=== PATIENT | male | born 1940 | race Asian ===

== ENCOUNTER 2019-11-14 10:43 | Outpatient (CLI) | payer MEDICARE ==
[2019-11-14 14:10] LABS: BUN - BLOOD UREA NITROGEN 21 mg/dL (6-20); CALCIUM 9.5 mg/dL (8.5-10.3); CARBON DIOXIDE - CO2 27 mmol/L (21-32); CHLORIDE 104 mmol/L (101-111); CHOL/HDL RATIO 2.1 (<5.0); CHOLESTEROL 95 mg/dL; CREATININE 0.8 mg/dL (0.6-1.2); GLUCOSE 200 mg/dL (70-100); HDL CHOLESTEROL 46 mg/dL; LDL CHOLESTEROL,CALCULATED 37 mg/dL; LDL/HDL RATIO 0.8 (<3.6); SODIUM 138 mmol/L (135-145); VLDL CHOLESTEROL 12 mg/dL
[2019-11-14 14:55] LABS: HB2 TOTAL 14.9 g/dL; HEMOGLOBIN A1C 0.82 g/dL; HEMOGLOBIN A1C % 7.2 % (4.6-6.2)
== END 2019-11-14 23:59 | disposition home or self-care (01) ==
LOC: LAB.WCP 10:43
PROVIDERS: ATTEND Internal Medicine Interventional Cardiology
DX: I25.2 Old myocardial infarction (principal)
CPT/HCPCS: 36415; 80048; 80061; 83036; 83721

== ENCOUNTER 2023-04-11 17:40 | Outpatient (CLI) | payer MEDICARE | END 2023-04-11 17:41 | disposition critical access hospital (66) | LOC: EMS 17:40 | DX: M25.552 Pain in left hip (principal); M79.605 Pain in left leg; W01.0XXA Fall on same level from slipping, tripping and stumbling without subsequent striking against object, initial encounter; Y93.01 Activity, walking, marching and hiking; Y92.008 Other place in unspecified non-institutional (private) residence as the place of occurrence of the external cause | CPT/HCPCS: A0425; A0427 ==

== ENCOUNTER 2023-04-11 17:59 | Inpatient (IN) | payer MEDICARE ==
--- NOTE | 2023-04-11 18:07 | ED Physician Documentation ---
PD HPI LOWER EXT INJURY - Stated complaint Stated Complaint: L HIP FX/GLF - History obtained from History obtained from: Patient - History of Present Illness PD HPI LOW EXT INJURY LOCATION: Left, Hip Type of injury: Fall (tripped and fell, landing to left hip. Did not strike head.) Where injury occurred: Home Timing - onset: Today Timing - details: Abrupt onset, Still present Worsened by: Moving, Palpating Associated symptoms: No: Weakness, Numbness Review of Systems Constitutional: denies: Fever, Chills Nose: denies: Rhinorrhea / runny nose, Congestion Throat: denies: Sore throat Respiratory: denies: Cough Skin: denies: Abrasion (s), Laceration (s) Neurologic: denies: Altered mental status, Headache, Head injury PD PAST MEDICAL HISTORY - Past Medical History Cardiovascular: Hypertension, Coronary artery disease (with stents placed in 2019 and again 2020, without subsequent CHF/angina/chest pain. ) - Present Medications Home Medications: Ambulatory Orders Medication Instructions Recorded Confirmed Clopidogrel [Plavix] 75 mg PO DAILY 04/11/23 04/11/23 Empagliflozin [Jardiance] 25 mg PO DAILY 04/11/23 04/11/23 Losartan [Cozaar] 50 mg PO DAILY 04/11/23 04/11/23 Rosuvastatin Calcium [Crestor] 2.5 mg PO QPM 04/11/23 04/11/23 Sitagliptin Phos/Metformin HCl 1 each PO BID 04/11/23 04/11/23 [Janumet Xr 50-1,000 mg Tablet] carvediloL [Coreg] 3.125 mg PO BID 04/11/23 04/11/23 - Allergies Allergies/Adverse Reactions: Allergies Allergy/AdvReac Type Severity Reaction Status Date / Time No Known Drug Allergies Allergy Verified 04/11/23 18:16 PD ED PE NORMAL - Vitals Vital signs reviewed: Yes - General General: Alert and oriented X 3, Well developed/nourished, Other (pain with left hip movement.) - HEENT HEENT: Atraumatic - Neck Neck: Supple, no meningeal sign, No adenopathy - Cardiac Cardiac: RRR, No murmur - Respiratory Respiratory: Clear bilaterally - Abdomen Abdomen: Soft, Non tender - Derm Derm: Normal color, Warm and dry - Extremities Extremities: No edema, No calf tenderness / cord. No: Normal ROM s pain (left hip with pain on slight movement and with impaction/distraction. ) - Neuro Neuro: Alert and oriented X 3, No motor deficit, No sensory deficit, Normal speech Results - Vitals Vitals: Vital Signs - 24 hr 04/11/23 04/11/23 18:12 19:49 Temperature 36.5 C Heart Rate 83 84 Respiratory 15 18 Rate Blood Pressure 201/99 H 154/99 H O2 Saturation 100 99 Oxygen O2 Source Room air - Labs Labs: Laboratory Tests 04/11/23 04/11/23 04/11/23 18:14 18:14 18:14 WBC 11.2 H RBC 4.66 L Hgb 14.4 Hct 43.8 MCV 94.0 MCH 30.9 MCHC 32.9 RDW 13.6 Plt Count 201 MPV 9.8 Neut # (Auto) 9.1 H Lymph # (Auto) 1.3 L [place] # (Auto) 0.7 Eos # (Auto) 0.1 Baso # (Auto) 0.0 Absolute Nucleated RBC 0.00 Nucleated RBC % 0.0 PT 11.5 INR 1.1 APTT Sodium 139 Potassium 4.0 Chloride 104 Carbon Dioxide 25 Anion Gap 10.0 BUN 24 H Creatinine 1.0 Estimated GFR (MDRD) 71 L Glucose 198 H Calcium 10.1 Magnesium 1.9 Total Bilirubin 0.6 AST 15 ALT 16 Alkaline Phosphatase 77 Total Protein 7.9 Albumin 5.1 Globulin 2.8 Albumin/Globulin Ratio 1.8 Lipase < 10 L 04/11/23 18:14 WBC RBC Hgb Hct MCV MCH MCHC RDW Plt Count MPV Neut # (Auto) Lymph # (Auto) [place] # (Auto) Eos # (Auto) Baso # (Auto) Absolute Nucleated RBC Nucleated RBC % PT INR APTT 27.8 Sodium Potassium Chloride Carbon Dioxide Anion Gap BUN Creatinine Estimated GFR (MDRD) Glucose Calcium Magnesium Total Bilirubin AST ALT Alkaline Phosphatase Total Protein Albumin Globulin Albumin/Globulin Ratio Lipase - Rads (name of study) left hip Relevant Findings:: Prelim report reviewed, EMP independent interpretation of test (intertrochanteric fracture. ) chest xray Relevant Findings:: Prelim report reviewed, EMP independent interpretation of test (no acute findings. ) head CT Relevant Findings:: Prelim report reviewed, EMP independent interpretation of test (due to fall on Plavix - no ICH seen. ) PD Medical Decision Making - ED course Complexity details: reviewed results, considered differential (had accidental fall with left hip pain. xray showing intertrochanteric fracture. ), d/w patient, d/w securities consultant (Dr. Terrazas - who will consult on thepatient. ) Departure - Departure Disposition: 66 [facility] DC/Xfer Clinical Impression: Accidental fall, Fracture, intertrochanteric, left femur Condition: Stable Record reviewed to determine appropriate education?: Yes Discharge Date/Time: 04/11/23 21:39
[2023-04-11] MEDS ORDERED: fentaNYL 100 MCG/2 ML VIAL IVP STA (18:12)
[2023-04-11] MEDS ORDERED: KETOROLAC 15 MG/ML VIAL IVP STA (18:12)
[2023-04-11 18:22] LABS: BASOPHILS % (AUTO) 0.2 %; EOSINOPHILS # (AUTO) 0.1 10^3/uL (0.0-0.7); EOSINOPHILS % (AUTO) 1.1 %; HCT - HEMATOCRIT 43.8 % (42.0-52.0); HGB - HEMOGLOBIN 14.4 g/dL (14.0-18.0); LYMPHOCYTES # (AUTO) 1.3 10^3/uL (1.5-3.5); LYMPHOCYTES % (AUTO) 11.3 %; MEAN CORPUSCULAR HEMOGLOBIN 30.9 pg (27.0-31.0); MEAN CORPUSCULAR HGB CONC 32.9 g/dL (32.0-36.0); MEAN PLATELET VOLUME 9.8 fL (7.4-11.4); MONOCYTES # (AUTO) 0.7 10^3/uL (0.0-1.0); MONOCYTES % (AUTO) 6.1 %; NEUTROPHILS # (AUTO) 9.1 10^3/uL (1.5-6.6); NEUTROPHILS % (AUTO) 80.9 %; PLT - PLATELET COUNT 201 10^3/uL (130-450); RED BLOOD COUNT 4.66 10^6/uL (4.70-6.10); RED CELL DISTRIBUTION WIDTH 13.6 % (12.0-15.0); WHITE BLOOD COUNT 11.2 x10^3/uL (4.8-10.8)
[2023-04-11 18:43] LABS: ALBUMIN 5.1 g/dL (3.2-5.5); ALBUMIN/GLOBULIN RATIO 1.8 (1.0-2.2); ALKALINE PHOSPHATASE 77 IU/L (42-121); ALT ALANINE AMINOTRANSFERASE 16 IU/L (10-60); AST ASPARTATE AMINOTRANSFERASE 15 IU/L (10-42); BILIRUBIN,TOTAL 0.6 mg/dL (0.2-1.0); BUN - BLOOD UREA NITROGEN 24 mg/dL (6-20); CALCIUM 10.1 mg/dL (8.5-10.3); CARBON DIOXIDE - CO2 25 mmol/L (21-32); CHLORIDE 104 mmol/L (101-111); GFR - MDRD 71 (>89); GLUCOSE 198 mg/dL (74-104); MAGNESIUM 1.9 mg/dL (1.7-2.3); SODIUM 139 mmol/L (135-145); TOTAL PROTEIN 7.9 g/dL (6.4-8.9)
[2023-04-11 18:44] LABS: LIPASE < 10 U/L (11-82)
--- NOTE | 2023-04-11 19:14 | XRAY Report ---
PROCEDURE: Hip w/Pelvis 2-3V LT INDICATIONS: fall with left hip pain TECHNIQUE: AP pelvis with lateral view(s) of the left hip(s). COMPARISON: None. FINDINGS: Bones: Left hip intertrochanteric fracture. No dislocations. At least moderate degenerative changes at the hips bilaterally. No suspicious bony lesions. Soft tissues: No suspicious soft tissue calcifications or masses. Arteriovascular calcifications. IMPRESSION: Left hip intertrochanteric fracture. Reviewed by: Renzo Yoon MD on 04/11/2023 7:13 PM PDT Approved by: Renzo Yoon MD on 04/11/2023 7:13 PM PDT Station ID: [id number]
--- NOTE | 2023-04-11 19:18 | XRAY Report ---
PROCEDURE: Chest 1 View X-Ray INDICATIONS: fall TECHNIQUE: One view of the chest was acquired. COMPARISON: None. FINDINGS: Surgical changes and devices: None. Lungs and pleura: No pleural effusions or pneumothorax. Lungs are clear. Mediastinum: Mediastinal contours appear normal. Heart size is normal. Bones and chest wall: No suspicious bony lesions. Overlying soft tissues appear unremarkable. IMPRESSION: No acute cardiopulmonary process. Reviewed by: Renzo Yoon MD on 04/11/2023 7:17 PM PDT Approved by: Renzo Yoon MD on 04/11/2023 7:17 PM PDT Station ID: [id number]
[2023-04-11] MEDS ORDERED: ONDANSETRON 4 MG/2 ML VIAL IVP STA (19:57)
--- NOTE | 2023-04-11 20:19 | HISTORY & PHYSICAL EXAMINATION ---
Chief Complaint - Chief Complaint Chief Complaint: L Hip pain History of Present Illness - Admitted From Admitted From:: ER - History Obtained From Records Reviewed: Yes History obtained from: Patient, Patient's , staff, chart Exam Limitations: Virtual exam - History of Present Illness HPI Comment/Other: H&P was conducted via video remotely, using Access Cart. Patient is in [place]. Physician is in [place]. Pt's Abbi is at bedside. 82 yo M with PMH of HTN, HLD, CAD and DM type 2 presented to the ER with c/o L hip pain s/p GLF. Pt tripped over something and landed on his L hip, then had pain, worse with movement. His leg felt weak. No head injury. Pt has h/o R hip surgery. Pt denies Dizziness/CP/SOB/N/V/abdo pain/F/C. He is independent and ambulates independently. In the ER, BP 201/99, WBC 11/2, Glc 198 CXR: NAD Hip/Pelvis Xray: L Hip Intertrochanteric Fracture ER Physician D/W Orthopedic Surgeon who recommended admit on Hospitalist service and they will consult in AM. Pt was given Fentanyl, Toradol and Zofran in the ER. Meds/Allgy - Home Medications Home Medications: Ambulatory Orders Medication Instructions Recorded Confirmed Clopidogrel [Plavix] 75 mg PO DAILY 04/11/23 04/11/23 Empagliflozin [Jardiance] 25 mg PO DAILY 04/11/23 04/11/23 Losartan [Cozaar] 50 mg PO DAILY 04/11/23 04/11/23 Rosuvastatin Calcium [Crestor] 2.5 mg PO QPM 04/11/23 04/11/23 Sitagliptin Phos/Metformin HCl 1 each PO BID 04/11/23 04/11/23 [Janumet Xr 50-1,000 mg Tablet] carvediloL [Coreg] 3.125 mg PO BID 04/11/23 04/11/23 - Allergies Allergies/Adverse Reactions: Allergies Allergy/AdvReac Type Severity Reaction Status Date / Time No Known Drug Allergies Allergy Verified 04/11/23 18:16 Review of Systems - All Other Systems All Other Systems: reports: Reviewed and negative Exam - Vital Signs Reviewed Vital Signs: Yes Vital Signs: Vital Signs x48h Temp Pulse Resp BP Pulse Ox 04/11/23 19:49 84 18 154/99 H 99 04/11/23 18:12 36.5 C 83 15 201/99 H 100 - Physical Exam General Appearance: positive: No acute distress Eyes Bilateral: positive: EOMI, No scleral icterus Respiratory: positive: Other (Access cart stethoscope not working; per ER Provider: CTA B/L) Cardiovascular: positive: Other (Access cart stethoscope not working; per ER Provider: RRR, no murmurs) Abdomen: positive: Other (per ER Provider: non-distended, NT, Soft) Extremities: positive: Other (per ER Provider: TTP L hip) Neurologic/Psychiatric: positive: Oriented x3, Mood/affect nml Conclusion/Plan - Problem List (1) Fracture, intertrochanteric, left femur Conclusion/Plan: L Hip Intertrochanteric Fracture Fall -Hip/Pelvis Xray: L Hip Intertrochanteric Fracture -ER Physician D/W Orthopedic Surgeon who recommended admit on Hospitalist service and they will consult in AM. -Pt was given Fentanyl, Toradol and Zofran in the ER. -admit to MedSurg -NPO p MN until evaluated by Ortho -IVF -pain meds, anti-emetics PRN -Mgmt per Orthopedic Surgery Leukocytosis -WBC 11.2 -CXR: NAD -U/A ordered -no s/s of infection Preop eval -pt's CAD puts him at Class III/6% risk of Cardiac complications per revised Johnston Cardiac Risk Index -will optimize care for emergent Orthopedic surgery HTN HLD CAD -BP 201/99 -continue home medications: Coreg, Crestor -hold home medications: hold Cozaar and Plavix prior surgery; restart after surgery -Hydralazine PRN DM type 2 Glc 198 -accuchecks, SS Insulin, Hypoglycemic protocol -hold home medications: Janumet XL, Jardiance -check Hgba1c VTE Prophylaxis: SCDs only d/t possible upcoming procedure Code Status: D/W pt; he is Full Code ~Adelina Hall MD Hospitalist - Lab Results Lab results reviewed: Yes Fish Bones: 04/11/23 18:14 04/11/23 18:14
--- NOTE | 2023-04-11 20:31 | ED Physician Documentation ---
ED Addendum - Addendum Addendum: 04/11/23 20:29 The patient was signed out to me at change of shift, pending admission to hospitalist service after tripping and falling and sustaining an intertrochanteric fracture to his left hip. My colleague had already discussed the case with Dr. Terrazas of orthopedics, but given the patient's elderly age and comorbidities, including coronary artery disease on Plavix, hypertension, diabetes, and hyperlipidemia, he did request that the patient be admitted to hospitalist service. I discussed the case with Dr. Hall, who graciously agreed to admit this patient to her service. Patient is agreeable to admission and understands he will be having surgery for his hip fracture. Final impression: 1. Intertrochanteric fracture of left hip Disposition: Admit to the hospital in serious condition.
[2023-04-11] MEDS ORDERED: ONDANSETRON ODT 4 MG TABLET TL PRN (20:39)
[2023-04-11] MEDS ORDERED: SODIUM CHLORIDE FLUSH 0.9% 10 ML SYRINGE IVP PRN (20:39)
[2023-04-11] MEDS ORDERED: MORPHINE 2 MG/ML CARPUJECT IVP PRN (20:39)
[2023-04-11] MEDS ORDERED: ONDANSETRON 4 MG/2 ML VIAL IVP PRN (20:39)
--- NOTE | 2023-04-11 20:40 | CT Report ---
PROCEDURE: HEAD WO INDICATIONS: fall, on Plavix TECHNIQUE: Noncontrast 4.5 mm thick angled axial sections acquired from the foramen magnum to the vertex. For r adiation dose reduction, the following was used: automated exposure control, adjustment of mA and/or kV according to patient size. COMPARISON: None. FINDINGS: Image quality: Excellent. CSF spaces: Basal cisterns are patent. No extra-axial fluid collections. Ventricles are normal in size and shape. Brain: No midline shift. No intracranial masses or hemorrhage. Patel-white matter interface is norm al. Age-appropriate cervical cortical volume loss. Mild patchy hypodensity in periventricular white matter. Skull and face: Slight swelling over the left supraorbital region with punctate radiodense focus in the subcutaneous tissues. No visible fracture. Sinuses: Visualized sinuses and mastoids are clear. IMPRESSION: No CT evidence of acute intracranial trauma. Slight left supraorbital soft tissue swelling and debris without underlying fracture. Reviewed by: Rebecca Fajardo MD on 04/11/2023 8:39 PM PDT Approved by: Rebecca Fajardo MD on 04/11/2023 8:39 PM PDT Station ID: [id number]
[2023-04-11 20:47] LABS: INR 1.1 (0.8-1.2); PT - PROTHROMBIN TIME 11.5 secs (9.9-12.6)
[2023-04-11] MEDS ORDERED: SODIUM CHLORIDE 0.9% 1,000 ML IV SCH (21:00)
[2023-04-11] MEDS ORDERED: INSULIN LISPRO 300 UNIT/3 ML PEN SUBQ SCH (21:00)
[2023-04-11] MEDS ORDERED: hydrALAZINE 10 MG TABLET PO PRN (21:02)
[2023-04-11 22:53] LABS: BILIRUBIN,URINE NEGATIVE (NEGATIVE); GLUCOSE, URINE (UA) >=1000 mg/dL (NEGATIVE); KETONES,URINE (UA) 15 mg/dL (NEGATIVE); LEUKOCYTE ESTERASE, URINE NEGATIVE (NEGATIVE); NITRITE,URINE NEGATIVE (NEGATIVE); OCCULT BLOOD,URINE NEGATIVE (NEGATIVE); PH,URINE 5.5 PH (5.0-7.5); PROTEIN,URINE NEGATIVE (NEGATIVE); UROBILINOGEN,URINE 0.2 (NORMAL) E.U./dL (NORMAL)
[2023-04-11 23:00] LABS: CLARITY,URINE CLEAR (CLEAR)
[2023-04-11] MEDS: oxyCODONE 5 MG TABLET PO PRN (23:09)
[2023-04-11] MEDS: SODIUM CHLORIDE FLUSH 0.9% 10 ML SYRINGE IVP SCH (23:33)
[2023-04-12] MEDS: oxyCODONE 5 MG TABLET PO PRN ×4 (03:48→19:58)
[2023-04-12 06:01] LABS: BASOPHILS % (AUTO) 0.4 %; EOSINOPHILS % (AUTO) 0.3 %; HCT - HEMATOCRIT 36.1 % (42.0-52.0); HGB - HEMOGLOBIN 12.1 g/dL (14.0-18.0); LYMPHOCYTES # (AUTO) 0.9 10^3/uL (1.5-3.5); MEAN CORPUSCULAR HEMOGLOBIN 31.8 pg (27.0-31.0); MEAN CORPUSCULAR HGB CONC 33.5 g/dL (32.0-36.0); MEAN PLATELET VOLUME 10.2 fL (7.4-11.4); MONOCYTES # (AUTO) 0.9 10^3/uL (0.0-1.0); NEUTROPHILS # (AUTO) 5.9 10^3/uL (1.5-6.6); NEUTROPHILS % (AUTO) 75.8 %; PLT - PLATELET COUNT 142 10^3/uL (130-450); RED CELL DISTRIBUTION WIDTH 13.7 % (12.0-15.0); WHITE BLOOD COUNT 7.7 x10^3/uL (4.8-10.8)
[2023-04-12 06:10] LABS: POTASSIUM 4.4 mmol/L (3.5-4.5)
--- NOTE | 2023-04-12 08:01 | PROVIDER PROGRESS NOTE ---
Assessment/Plan - Problem List (1) Fracture, intertrochanteric, left femur Assessment/Plan: Ortho Dr. Terrazas plans procedure today around 3pm Pre-op EKG performed: it is sinus rhythm HR 76, ND 251, prolonged, normal QTc Discussed with anesthesia, patient is low to moderate risk for procedure, but not prohibit him for surgical procedure (2) CAD (coronary artery disease) Assessment/Plan: History of stent placement twice On Plavix, hold Plavix prior surgery Will resume Plavix after surgery EKG for preop baseline (3) Diabetic acidosis, type II Assessment/Plan: POCT blood glucose check per unit protocol Insulin sliding scale Half dose when patient is n.p.o. (4) HTN (hypertension) Assessment/Plan: At admission patient had peak blood pressure of 201/99, likely due to acute str ess and the pain Continue with Coreg Hydralazine as needed, with the goal SBP 140 -/ +20 (5) HLD (hyperlipidemia) Assessment/Plan: Continue with Crestor - Current Meds Current Meds: Current Medications Generic Name Dose Route Start Last Admin Trade Name Freq PRN Reason Stop Dose Admin Sodium Chloride 1,000 mls @ 50 mls/hr 04/11/23 21:00 04/11/23 21:33 Normal Saline 0.9% IV 50 mls/hr .Q20H FREDERIC Administration Insulin Human Lispro 0 unit 04/11/23 21:00 04/11/23 22:33 Insulin Lispro 300 Unit/3 Ml Pen SUBQ Not Given 0800,1200,1600,2100 [facility] Protocol Oxycodone HCl 5 mg 04/11/23 20:39 04/12/23 03:48 Oxycodone 5 Mg Tablet PO 5 mg Q4HR PRN Administration Pain 5 to 7 Sodium Chloride 10 ml 04/12/23 01:00 04/11/23 23:33 Sodium Chloride Flush 0.9% 10 Ml Syringe IVP Not Given 0100,0900,1700 FREDERIC - Lab Result Fish Bone Diagrams: 04/12/23 05:27 04/12/23 05:27 Subjective - Subjective Patient Reports: Pain (Patient reports severe pain of his left leg, feels swollen of the hip area) Objective Vital Signs: Vital Signs - 24 hr 04/11/23 04/11/23 04/11/23 18:12 19:49 21:00 Temperature 36.5 C Heart Rate 83 84 75 Heart Rate [ Brachial] Respiratory 15 18 15 Rate Blood Pressure 201/99 H 154/99 H 153/95 H Blood Pressure [Right Brachial artery] O2 Saturation 100 99 98 04/11/23 04/12/23 23:40 03:53 Temperature 36.3 C L 36.8 C Heart Rate Heart Rate [ 84 85 Brachial] Respiratory 18 16 Rate Blood Pressure Blood Pressure 123/73 118/67 [Right Brachial artery] O2 Saturation 98 98 Oxygen O2 Source Room air I&O (Last 24 Hrs): Intake and Output Totals x24h 04/10/23 04/11/23 04/12/23 23:59 23:59 23:59 Output Total 0 0 Balance 0 0 General: Alert, Oriented x3, Cooperative HEENT: PERRLA, EOMI Neck: Supple, No JVD Neuro: Alert, Non Focal, CN 2-12 Grossly Intact Cardiovascular: Regular rate Respiratory: No respiratory distress Abdomen: Soft, No tenderness Extremities: Other (Left leg hip area mildly swollen no skin color change, good pulses on both lower extremity) Skin: No rashes, No breakdown - Results Results: Laboratory Results WBC 7.7 x10^3/uL (4.8-10.8) 04/12/23 05:27 RBC 3.80 10^6/uL (4.70-6.10) L 04/12/23 05:27 Hgb 12.1 g/dL (14.0-18.0) L 04/12/23 05:27 Hct 36.1 % (42.0-52.0) L 04/12/23 05:27 MCV 95.0 fL (80.0-94.0) H 04/12/23 05:27 MCH 31.8 pg (27.0-31.0) H 04/12/23 05:27 MCHC 33.5 g/dL (32.0-36.0) 04/12/23 05:27 RDW 13.7 % (12.0-15.0) 04/12/23 05:27 Plt Count 142 10^3/uL (130-450) 04/12/23 05:27 MPV 10.2 fL (7.4-11.4) 04/12/23 05:27 Neut # (Auto) 5.9 10^3/uL (1.5-6.6) 04/12/23 05:27 Lymph # (Auto) 0.9 10^3/uL (1.5-3.5) L 04/12/23 05:27 [place] # (Auto) 0.9 10^3/uL (0.0-1.0) 04/12/23 05:27 Eos # (Auto) 0.0 10^3/uL (0.0-0.7) 04/12/23 05:27 Baso # (Auto) 0.0 10^3/uL (0.0-0.1) 04/12/23 05:27 Absolute Nucleated RBC 0.00 x10^3/uL 04/12/23 05:27 Nucleated RBC % 0.0 /100WBC 04/12/23 05:27 PT 11.5 secs (9.9-12.6) 04/11/23 18:14 INR 1.1 (0.8-1.2) 04/11/23 18:14 APTT 27.8 secs (24.9-33.3) 04/11/23 18:14 Sodium 140 mmol/L (135-145) 04/12/23 05:27 Potassium 4.4 mmol/L (3.5-4.5) 04/12/23 05:27 Chloride 108 mmol/L (101-111) 04/12/23 05:27 Carbon Dioxide 23 mmol/L (21-32) 04/12/23 05:27 Anion Gap 9.0 (6-13) 04/12/23 05:27 BUN 28 mg/dL (6-20) H 04/12/23 05:27 Creatinine 1.0 mg/dL (0.6-1.3) 04/12/23 05:27 Estimated GFR (MDRD) 71 (>89) L 04/12/23 05:27 Glucose 181 mg/dL (74-104) H 04/12/23 05:27 POC Whole Bld Glucose 169 mg/dL (70 - 100) H 04/12/23 07:53 Calcium 9.0 mg/dL (8.5-10.3) 04/12/23 05:27 Magnesium 1.9 mg/dL (1.7-2.3) 04/11/23 18:14 Total Bilirubin 0.6 mg/dL (0.2-1.0) 04/11/23 18:14 AST 15 IU/L (10-42) 04/11/23 18:14 ALT 16 IU/L (10-60) 04/11/23 18:14 Alkaline Phosphatase 77 IU/L (42-121) 04/11/23 18:14 Total Protein 7.9 g/dL (6.4-8.9) 04/11/23 18:14 Albumin 5.1 g/dL (3.2-5.5) 04/11/23 18:14 Globulin 2.8 g/dL (2.1-4.2) 04/11/23 18:14 Albumin/Globulin Ratio 1.8 (1.0-2.2) 04/11/23 18:14 Lipase < 10 U/L (11-82) L 04/11/23 18:14 Urine Color YELLOW 04/11/23 22:45 Urine Clarity CLEAR (CLEAR) 04/11/23 22:45 Urine pH 5.5 PH (5.0-7.5) 04/11/23 22:45 Ur Specific [place] 1.020 (1.002-1.030) 04/11/23 22:45 Urine Protein NEGATIVE mg/dL (NEGATIVE) 04/11/23 22:45 Urine Glucose (UA) >=1000 mg/dL (NEGATIVE) H 04/11/23 22:45 Urine Ketones 15 mg/dL (NEGATIVE) H 04/11/23 22:45 Urine Occult Blood NEGATIVE (NEGATIVE) 04/11/23 22:45 Urine Nitrite NEGATIVE (NEGATIVE) 04/11/23 22:45 Urine Bilirubin NEGATIVE (NEGATIVE) 04/11/23 22:45 Urine Urobilinogen 0.2 (NORMAL) E.U./dL (NORMAL) 04/11/23 22:45 Ur Leukocyte Esterase NEGATIVE (NEGATIVE) 04/11/23 22:45 Ur Microscopic Review NOT INDICATED 04/11/23 22:45 Urine Culture Comments NOT INDICATED 04/11/23 22:45 Sepsis Event Note (H) - Evaluation Current Stage of Sepsis: Ruled out ABX Reporting Has patient been on IV antibiotics over the past 48 hours?: No Current Medications - Current Medications Current Medications: Active Medications Acetaminophen (Acetaminophen 325 Mg Tablet) 650 mg PO Q4HR PRN PRN Reason: Pain 1 to 4, or Fever Atorvastatin Calcium (Atorvastatin 10 Mg Tablet) 5 mg PO QPM [facility] Carvedilol (Carvedilol 3.125 Mg Tablet) 3.125 mg PO BID [facility] Last Admin: 04/12/23 08:44 Dose: 3.125 mg Hydralazine HCl (Hydralazine 10 Mg Tablet) 10 mg PO Q6H PRN PRN Reason: Blood Pressure Sodium Chloride (Normal Saline 0.9%) 1,000 mls @ 50 mls/hr IV .Q20H [facility] Last Admin: 04/11/23 21:33 Dose: 50 mls/hr Insulin Human Lispro (Insulin Lispro 300 Unit/3 Ml Pen) 0 unit SUBQ 0800,1200,1600,2100 [facility]; Protocol Last Admin: 04/12/23 11:50 Dose: Not Given Morphine Sulfate (Morphine 2 Mg/Ml Carpuject) 2 mg IVP Q4HR PRN PRN Reason: Pain 8 to 10 Ondansetron HCl (Ondansetron Odt 4 Mg Tablet) 4 mg TL Q6HR PRN PRN Reason: Nausea / Vomiting Ondansetron HCl (Ondansetron 4 Mg/2 Ml Vial) 4 mg IVP Q6HR PRN PRN Reason: Nausea / Vomiting Oxycodone HCl (Oxycodone 5 Mg Tablet) 5 mg PO Q4HR PRN PRN Reason: Pain 5 to 7 Last Admin: 04/12/23 13:37 Dose: 5 mg Sodium Chloride (Sodium Chloride Flush 0.9% 10 Ml Syringe) 10 ml IVP PRN PRN PRN Reason: NEEDED PER PROVIDER ORDERS Sodium Chloride (Sodium Chloride Flush 0.9% 10 Ml Syringe) 10 ml IVP 0100,0900,1700 [facility] Last Admin: 04/12/23 08:45 Dose: Not Given Clopidogrel [Plavix] 75 mg PO DAILY 04/11/23 Empagliflozin [Jardiance] 25 mg PO DAILY 04/11/23 Losartan [Cozaar] 50 mg PO DAILY 04/11/23 Rosuvastatin Calcium [Crestor] 2.5 mg PO QPM 04/11/23 carvediloL [Coreg] 3.125 mg PO BID 04/11/23 Sitagliptin Phos/Metformin HCl [Janumet Xr 50-1,000 mg Tablet] 1 tab PO DAILY 04/12/23
[2023-04-12] MEDS: carvediloL 3.125 MG TABLET PO SCH ×2 (08:44→21:06)
[2023-04-12] MEDS: SODIUM CHLORIDE FLUSH 0.9% 10 ML SYRINGE IVP SCH ×3 (08:45→23:42)
--- NOTE | 2023-04-12 09:36 | PHARMACY PROGRESS NOTE ---
- Best Possible Medication History Admit Date and Time: 04/11/232038 Processed by: Pharmacy Medication History completed: Yes Patient Interview: Completed Secondary Source(s): Pharmacy records, Insurance records As the person ultimately responsible for medication therapy, providers are able to order a medication from an existing home medication list in [facility] via the "Reconcile Routine" prior to Confirmation of that medication by pit crew support worker. Such practice is discouraged except when the physician, in their clinical judgment, deems that a medical need exists for a medication without regard to previous use.
--- NOTE | 2023-04-12 10:05 | ANESTHESIA ---
Pre-Anesthesia VS, & Labs - Diagnosis left hip fracture - Procedure left hip nailing Vital Signs: Temp Pulse Resp BP Pulse Ox O2 Flow Rate 36.5 C 80 18 111/76 98 04/12/23 08:00 04/12/23 08:00 04/12/23 08:00 04/12/23 08:00 04/12/23 08:00 Height: 6 ft 4 in Weight (kg): 82.5 kg Body Mass Index: 22.1 BMI Classification: Normal - NPO >8 hours - Lab Results Current Lab Results: Laboratory Tests 04/12/23 07:53: POC Whole Bld Glucose 169 H 04/12/23 06:08: POC Whole Bld Glucose 165 H 04/12/23 05:27: Sodium 140, Potassium 4.4, Chloride 108, Carbon Dioxide 23, Anion Gap 9.0, BUN 28 H, Creatinine 1.0, Estimated GFR (MDRD) 71 L, Glucose 181 H, Calcium 9.0 04/12/23 05:27: WBC 7.7, RBC 3.80 L, Hgb 12.1 L, Hct 36.1 L, MCV 95.0 H, MCH 31.8 H, MCHC 33.5, RDW 13.7, Plt Count 142, MPV 10.2, Neut # (Auto) 5.9, Lymph # (Auto) 0.9 L, [place] # (Auto) 0.9, Eos # (Auto) 0.0, Baso # (Auto) 0.0, Absolute Nucleated RBC 0.00, Nucleated RBC % 0.0 04/11/23 23:28: POC Whole Bld Glucose 170 H 04/11/23 18:14: APTT 27.8 04/11/23 18:14: PT 11.5, INR 1.1 04/11/23 18:14: Sodium 139, Potassium 4.0, Chloride 104, Carbon Dioxide 25, Anion Gap 10.0, BUN 24 H, Creatinine 1.0, Estimated GFR (MDRD) 71 L, Glucose 198 H, Calcium 10.1, Magnesium 1.9, Total Bilirubin 0.6, AST 15, ALT 16, Alkaline Phosphatase 77, Total Protein 7.9, Albumin 5.1, Globulin 2.8, Albumin/Globulin Ratio 1.8, Lipase < 10 L 04/11/23 18:14: WBC 11.2 H, RBC 4.66 L, Hgb 14.4, Hct 43.8, MCV 94.0, MCH 30.9, MCHC 32.9, RDW 13.6, Plt Count 201, MPV 9.8, Neut # (Auto) 9.1 H, Lymph # (Auto) 1.3 L, [place] # (Auto) 0.7, Eos # (Auto) 0.1, Baso # (Auto) 0.0, Absolute Nucleated RBC 0.00, Nucleated RBC % 0.0 Fish Bones: 04/12/23 05:27 04/12/23 05:27 Home Medications and Allergies Home Medications: Ambulatory Orders Clopidogrel [Plavix] 75 mg PO DAILY 04/11/23 Empagliflozin [Jardiance] 25 mg PO DAILY 04/11/23 Losartan [Cozaar] 50 mg PO DAILY 04/11/23 Rosuvastatin Calcium [Crestor] 2.5 mg PO QPM 04/11/23 carvediloL [Coreg] 3.125 mg PO BID 04/11/23 Sitagliptin Phos/Metformin HCl [Janumet Xr 50-1,000 mg Tablet] 1 tab PO DAILY 04/12/23 Active Medications Acetaminophen (Acetaminophen 325 Mg Tablet) 650 mg PO Q4HR PRN PRN Reason: Pain 1 to 4, or Fever Atorvastatin Calcium (Atorvastatin 10 Mg Tablet) 5 mg PO QPM [facility] Carvedilol (Carvedilol 3.125 Mg Tablet) 3.125 mg PO BID [facility] Last Admin: 04/12/23 08:44 Dose: 3.125 mg Hydralazine HCl (Hydralazine 10 Mg Tablet) 10 mg PO Q6H PRN PRN Reason: Blood Pressure Sodium Chloride (Normal Saline 0.9%) 1,000 mls @ 50 mls/hr IV .Q20H [facility] Last Admin: 04/11/23 21:33 Dose: 50 mls/hr Insulin Human Lispro (Insulin Lispro 300 Unit/3 Ml Pen) 0 unit SUBQ 0800,1200,1600,2100 [facility]; Protocol Morphine Sulfate (Morphine 2 Mg/Ml Carpuject) 2 mg IVP Q4HR PRN PRN Reason: Pain 8 to 10 Ondansetron HCl (Ondansetron Odt 4 Mg Tablet) 4 mg TL Q6HR PRN PRN Reason: Nausea / Vomiting Ondansetron HCl (Ondansetron 4 Mg/2 Ml Vial) 4 mg IVP Q6HR PRN PRN Reason: Nausea / Vomiting Oxycodone HCl (Oxycodone 5 Mg Tablet) 5 mg PO Q4HR PRN PRN Reason: Pain 5 to 7 Last Admin: 04/12/23 08:45 Dose: 5 mg Sodium Chloride (Sodium Chloride Flush 0.9% 10 Ml Syringe) 10 ml IVP PRN PRN PRN Reason: NEEDED PER PROVIDER ORDERS Sodium Chloride (Sodium Chloride Flush 0.9% 10 Ml Syringe) 10 ml IVP 0100,0900,1700 [facility] Last Admin: 04/12/23 08:45 Dose: Not Given Clopidogrel [Plavix] 75 mg PO DAILY 04/11/23 Empagliflozin [Jardiance] 25 mg PO DAILY 04/11/23 Losartan [Cozaar] 50 mg PO DAILY 04/11/23 Rosuvastatin Calcium [Crestor] 2.5 mg PO QPM 04/11/23 carvediloL [Coreg] 3.125 mg PO BID 04/11/23 Sitagliptin Phos/Metformin HCl [Janumet Xr 50-1,000 mg Tablet] 1 tab PO DAILY 04/12/23 Allergies/Adverse Reactions: Allergies Allergy/AdvReac Type Severity Reaction Status Date / Time No Known Drug Allergies Allergy Verified 04/11/23 18:16 Anes History & Medical History - Anesthetic History Anesthesia Complications: reports: No previous complications - Medical History Cardiovascular: reports: Hypertension, Coronary artery disease (with stents placed in 2019 and again 2020, without subsequent CHF/angina/chest pain. ) Pulmonary: reports: None Gastrointestinal: reports: None Urinary: reports: None Neuro: reports: None Musculoskeletal: reports: None Endocrine/Autoimmune: reports: Type 2 diabetes Blood Disorders: reports: None Skin: reports: None Smoking Status: Never smoker Other Past Medical History: hip fracture r side 2020. cardiac stents x 4. rt hip fracture 2 years ago - Surgical History Cardiothoracic: reports: Coronary stent Urologic: reports: Bladder surgery Exam General: Alert, Oriented x3, Cooperative Dental: WNL Mouth Opening: Greater than 4 Fingerbreadths Neck Mobility: Normal Mallampati classification: III Thyromental Distance: 4-6 cm Respiratory: Lungs clear Cardiovascular: Regular rate Plan Anesthesia Type: General Consent for Procedure(s) Verified and Reviewed: Yes Code Status: Attempt Resuscitation ASA classification: 3-Severe systemic disease Is this case an emergency?: Yes
--- NOTE | 2023-04-12 10:43 | HISTORY & PHYSICAL EXAMINATION ---
HPI - History Obtained From History obtained from: Patient Exam limitations: Clinical condition - History of Present Illness HPI Comment/Other: This is an 82-year-old man who took a fall coming up some steps with his dog last night at home. He fell onto his left hip and had immediate pain to his upper thigh. Is very difficult to bear any weight and he slid forward to get help. He was brought to the emergency room for further evaluation. He does aguilera ve a history of bilateral hip pain but mostly on the left side. The pain has fluctuated over the past 10 years to his hips, mainly left side. He is still able to walk up to a mile per day and seems to tolerate the hip pain fairly well. He does have comorbidities including a history of coronary artery stents, Plavix and diabetes. He denies chest pain, shortness of breath, loss of consciousness or dizziness associated with the fall. His primary complaint is pain to the left hip and upper thigh PMH/PSH - Past Medical History Cardiovascular: positive: Hypertension, Coronary artery disease (with stents placed in 2019 and again 2020, without subsequent CHF/angina/chest pain. ) Respiratory: positive: None Neuro: positive: None Endocrine/Autoimmune: positive: Type 2 diabetes GI: positive: None : positive: None HEENT: positive: None Psych: positive: None Musculoskeletal: positive: None Derm: positive: None MRSA Hx?: No Other Past Medical History: hip fracture r side 2020. cardiac stents x 4. rt hip fracture 2 years ago - Past Surgical History Cardiovascular: positive: Coronary stent Social & Family Hx - Social History Does the pt smoke?: No Smoking Status: Never smoker Does the pt drink ETOH?: No Does the pt have substance abuse?: No - POLST Patient has POLST: No Meds/Allgy - Home Medications Home Medications: Ambulatory Orders Medication Instructions Recorded Confirmed Clopidogrel [Plavix] 75 mg PO DAILY 04/11/23 04/11/23 Empagliflozin [Jardiance] 25 mg PO DAILY 04/11/23 04/11/23 Losartan [Cozaar] 50 mg PO DAILY 04/11/23 04/11/23 Rosuvastatin Calcium [Crestor] 2.5 mg PO QPM 04/11/23 04/11/23 carvediloL [Coreg] 3.125 mg PO BID 04/11/23 04/11/23 Sitagliptin Phos/Metformin HCl 1 tab PO DAILY 04/12/23 04/12/23 [Janumet Xr 50-1,000 mg Tablet] - Allergies Allergies/Adverse Reactions: Allergies Allergy/AdvReac Type Severity Reaction Status Date / Time No Known Drug Allergies Allergy Verified 04/11/23 18:16 Exam - Vital Signs Vital Signs: Vital Signs x48h Temp Pulse Resp BP Pulse Ox 04/12/23 08:00 36.5 C 80 18 111/76 98 04/12/23 03:53 36.8 C 85 16 118/67 98 - Physical Exam General Appearance: positive: Mild distress Respiratory: positive: Chest non-tender, No respiratory distress Cardiovascular: positive: Regular rate & rhythm Peripheral Pulses: positive: 1+ Skin: positive: Color nml, Warm, Dry Neurologic/Psychiatric: positive: Oriented x3, Motor nml, Sensation nml, Mood/affect nml Comments/Other: The left leg has mild external rotation deformity, marked pain with any attempted movement of left hip, skin intact, neurovascular intact Results - Lab Results Fish Bones: 04/12/23 05:27 04/12/23 05:27 Other Lab Results: Lab Results x24hrs 04/12/23 04/12/23 04/12/23 Range/Units 07:53 06:08 05:27 WBC (4.8-10.8) x10^3/uL RBC (4.70-6.10) 10^6/uL Hgb (14.0-18.0) g/dL Hct (42.0-52.0) % MCV (80.0-94.0) fL MCH (27.0-31.0) pg MCHC (32.0-36.0) g/dL RDW (12.0-15.0) % Plt Count (130-450) 10^3/uL MPV (7.4-11.4) fL Neut # (Auto) (1.5-6.6) 10^3/uL Lymph # (Auto) (1.5-3.5) 10^3/uL [place] # (Auto) (0.0-1.0) 10^3/uL Eos # (Auto) (0.0-0.7) 10^3/uL Baso # (Auto) (0.0-0.1) 10^3/uL Absolute Nucleated RBC x10^3/uL Nucleated RBC % /100WBC PT (9.9-12.6) secs INR (0.8-1.2) APTT (24.9-33.3) secs Sodium 140 (135-145) mmol/L Potassium 4.4 (3.5-4.5) mmol/L Chloride 108 (101-111) mmol/L Carbon Dioxide 23 (21-32) mmol/L Anion Gap 9.0 (6-13) BUN 28 H (6-20) mg/dL Creatinine 1.0 (0.6-1.3) mg/dL Estimated GFR (MDRD) 71 L (>89) Glucose 181 H (74-104) mg/dL POC Whole Bld Glucose 169 H 165 H (70 - 100) mg/dL Calcium 9.0 (8.5-10.3) mg/dL Magnesium (1.7-2.3) mg/dL Total Bilirubin (0.2-1.0) mg/dL AST (10-42) IU/L ALT (10-60) IU/L Alkaline Phosphatase (42-121) IU/L Total Protein (6.4-8.9) g/dL Albumin (3.2-5.5) g/dL Globulin (2.1-4.2) g/dL Albumin/Globulin Ratio (1.0-2.2) Lipase (11-82) U/L Urine Color Urine Clarity (CLEAR) Urine pH (5.0-7.5) PH Ur Specific [place] (1.002-1.030) Urine Protein (NEGATIVE) mg/dL Urine Glucose (UA) (NEGATIVE) mg/dL Urine Ketones (NEGATIVE) mg/dL Urine Occult Blood (NEGATIVE) Urine Nitrite (NEGATIVE) Urine Bilirubin (NEGATIVE) Urine Urobilinogen (NORMAL) E.U./dL Ur Leukocyte Esterase (NEGATIVE) Ur Microscopic Review Urine Culture Comments 04/12/23 04/11/23 04/11/23 Range/Units 05:27 23:28 22:45 WBC 7.7 (4.8-10.8) x10^3/uL RBC 3.80 L (4.70-6.10) 10^6/uL Hgb 12.1 L (14.0-18.0) g/dL Hct 36.1 L (42.0-52.0) % MCV 95.0 H (80.0-94.0) fL MCH 31.8 H (27.0-31.0) pg MCHC 33.5 (32.0-36.0) g/dL RDW 13.7 (12.0-15.0) % Plt Count 142 (130-450) 10^3/uL MPV 10.2 (7.4-11.4) fL Neut # (Auto) 5.9 (1.5-6.6) 10^3/uL Lymph # (Auto) 0.9 L (1.5-3.5) 10^3/uL [place] # (Auto) 0.9 (0.0-1.0) 10^3/uL Eos # (Auto) 0.0 (0.0-0.7) 10^3/uL Baso # (Auto) 0.0 (0.0-0.1) 10^3/uL Absolute Nucleated RBC 0.00 x10^3/uL Nucleated RBC % 0.0 /100WBC PT (9.9-12.6) secs INR (0.8-1.2) APTT (24.9-33.3) secs Sodium (135-145) mmol/L Potassium (3.5-4.5) mmol/L Chloride (101-111) mmol/L Carbon Dioxide (21-32) mmol/L Anion Gap (6-13) BUN (6-20) mg/dL Creatinine (0.6-1.3) mg/dL Estimated GFR (MDRD) (>89) Glucose (74-104) mg/dL POC Whole Bld Glucose 170 H (70 - 100) mg/dL Calcium (8.5-10.3) mg/dL Magnesium (1.7-2.3) mg/dL Total Bilirubin (0.2-1.0) mg/dL AST (10-42) IU/L ALT (10-60) IU/L Alkaline Phosphatase (42-121) IU/L Total Protein (6.4-8.9) g/dL Albumin (3.2-5.5) g/dL Globulin (2.1-4.2) g/dL Albumin/Globulin Ratio (1.0-2.2) Lipase (11-82) U/L Urine Color YELLOW Urine Clarity CLEAR (CLEAR) Urine pH 5.5 (5.0-7.5) PH Ur Specific [place] 1.020 (1.002-1.030) Urine Protein NEGATIVE (NEGATIVE) mg/dL Urine Glucose (UA) >=1000 H (NEGATIVE) mg/dL Urine Ketones 15 H (NEGATIVE) mg/dL Urine Occult Blood NEGATIVE (NEGATIVE) Urine Nitrite NEGATIVE (NEGATIVE) Urine Bilirubin NEGATIVE (NEGATIVE) Urine Urobilinogen 0.2 (NORMAL) (NORMAL) E.U./dL Ur Leukocyte Esterase NEGATIVE (NEGATIVE) Ur Microscopic Review NOT INDICATED Urine Culture Comments NOT INDICATED 04/11/23 04/11/23 04/11/23 Range/Units 18:14 18:14 18:14 WBC (4.8-10.8) x10^3/uL RBC (4.70-6.10) 10^6/uL Hgb (14.0-18.0) g/dL Hct (42.0-52.0) % MCV (80.0-94.0) fL MCH (27.0-31.0) pg MCHC (32.0-36.0) g/dL RDW (12.0-15.0) % Plt Count (130-450) 10^3/uL MPV (7.4-11.4) fL Neut # (Auto) (1.5-6.6) 10^3/uL Lymph # (Auto) (1.5-3.5) 10^3/uL [place] # (Auto) (0.0-1.0) 10^3/uL Eos # (Auto) (0.0-0.7) 10^3/uL Baso # (Auto) (0.0-0.1) 10^3/uL Absolute Nucleated RBC x10^3/uL Nucleated RBC % /100WBC PT 11.5 (9.9-12.6) secs INR 1.1 (0.8-1.2) APTT 27.8 (24.9-33.3) secs Sodium 139 (135-145) mmol/L Potassium 4.0 (3.5-4.5) mmol/L Chloride 104 (101-111) mmol/L Carbon Dioxide 25 (21-32) mmol/L Anion Gap 10.0 (6-13) BUN 24 H (6-20) mg/dL Creatinine 1.0 (0.6-1.3) mg/dL Estimated GFR (MDRD) 71 L (>89) Glucose 198 H (74-104) mg/dL POC Whole Bld Glucose (70 - 100) mg/dL Calcium 10.1 (8.5-10.3) mg/dL Magnesium 1.9 (1.7-2.3) mg/dL Total Bilirubin 0.6 (0.2-1.0) mg/dL AST 15 (10-42) IU/L ALT 16 (10-60) IU/L Alkaline Phosphatase 77 (42-121) IU/L Total Protein 7.9 (6.4-8.9) g/dL Albumin 5.1 (3.2-5.5) g/dL Globulin 2.8 (2.1-4.2) g/dL Albumin/Globulin Ratio 1.8 (1.0-2.2) Lipase < 10 L (11-82) U/L Urine Color Urine Clarity (CLEAR) Urine pH (5.0-7.5) PH Ur Specific [place] (1.002-1.030) Urine Protein (NEGATIVE) mg/dL Urine Glucose (UA) (NEGATIVE) mg/dL Urine Ketones (NEGATIVE) mg/dL Urine Occult Blood (NEGATIVE) Urine Nitrite (NEGATIVE) Urine Bilirubin (NEGATIVE) Urine Urobilinogen (NORMAL) E.U./dL Ur Leukocyte Esterase (NEGATIVE) Ur Microscopic Review Urine Culture Comments 04/11/23 Range/Units 18:14 WBC 11.2 H (4.8-10.8) x10^3/uL RBC 4.66 L (4.70-6.10) 10^6/uL Hgb 14.4 (14.0-18.0) g/dL Hct 43.8 (42.0-52.0) % MCV 94.0 (80.0-94.0) fL MCH 30.9 (27.0-31.0) pg MCHC 32.9 (32.0-36.0) g/dL RDW 13.6 (12.0-15.0) % Plt Count 201 (130-450) 10^3/uL MPV 9.8 (7.4-11.4) fL Neut # (Auto) 9.1 H (1.5-6.6) 10^3/uL Lymph # (Auto) 1.3 L (1.5-3.5) 10^3/uL [place] # (Auto) 0.7 (0.0-1.0) 10^3/uL Eos # (Auto) 0.1 (0.0-0.7) 10^3/uL Baso # (Auto) 0.0 (0.0-0.1) 10^3/uL Absolute Nucleated RBC 0.00 x10^3/uL Nucleated RBC % 0.0 /100WBC PT (9.9-12.6) secs INR (0.8-1.2) APTT (24.9-33.3) secs Sodium (135-145) mmol/L Potassium (3.5-4.5) mmol/L Chloride (101-111) mmol/L Carbon Dioxide (21-32) mmol/L Anion Gap (6-13) BUN (6-20) mg/dL Creatinine (0.6-1.3) mg/dL Estimated GFR (MDRD) (>89) Glucose (74-104) mg/dL POC Whole Bld Glucose (70 - 100) mg/dL Calcium (8.5-10.3) mg/dL Magnesium (1.7-2.3) mg/dL Total Bilirubin (0.2-1.0) mg/dL AST (10-42) IU/L ALT (10-60) IU/L Alkaline Phosphatase (42-121) IU/L Total Protein (6.4-8.9) g/dL Albumin (3.2-5.5) g/dL Globulin (2.1-4.2) g/dL Albumin/Globulin Ratio (1.0-2.2) Lipase (11-82) U/L Urine Color Urine Clarity (CLEAR) Urine pH (5.0-7.5) PH Ur Specific [place] (1.002-1.030) Urine Protein (NEGATIVE) mg/dL Urine Glucose (UA) (NEGATIVE) mg/dL Urine Ketones (NEGATIVE) mg/dL Urine Occult Blood (NEGATIVE) Urine Nitrite (NEGATIVE) Urine Bilirubin (NEGATIVE) Urine Urobilinogen (NORMAL) E.U./dL Ur Leukocyte Esterase (NEGATIVE) Ur Microscopic Review Urine Culture Comments - Diagnostic Imaging Results Diagnostic Imaging Results: positive: Read independently (Mildly displaced, comminuted intertrochanteric fracture left hip with signs of hip joint narrowing subtle osteophytes consistent with osteoarthritis of the left hip as well as intertrochanteric fracture left hip) Impression/Plan - Problem List Problem List: Mildly displaced intertrochanteric fracture left hip in conjunction with osteoarthritis left hip The choices of treatment include open reduction internal fixation versus total hip arthroplasty. I would favor open duction internal fixation since his simpler and safer and can be converted to total hip arthroplasty at a later date on elective basis, especially in an 82-year-old with history of diabetes and coronary artery disease. I discussed the risk, goals and likelihood of achieving goals, alternatives to surgery and consequences, disability and rarely . The plan is open reduction internal fixation of the left hip intertrochanteric fracture with a intramedullary integrated hip screw today. He was admitted last night and evaluated by the hospitalist
[2023-04-12 10:59] LABS: ESTIMATED AVERAGE GLUCOSE 186 mg/dL (70-100); HEMOGLOBIN A1c% 8.1 % (4.27-6.07)
[2023-04-12] MEDS: INSULIN LISPRO 300 UNIT/3 ML PEN SUBQ SCH ×3 (11:50→20:42)
[2023-04-12] MEDS ORDERED: PROPOFOL 200 MG/20 ML VIAL IVP ONE (15:32)
[2023-04-12] MEDS ORDERED: LIDOCAINE-PF 2% 10 ML AMP SUBQ ONE (15:32)
[2023-04-12] MEDS ORDERED: fentaNYL 100 MCG/2 ML VIAL ONE ×2 (15:32→18:33)
[2023-04-12] MEDS ORDERED: ceFAZolin 1 GM VIAL ONE (16:09)
[2023-04-12] MEDS ORDERED: PHENYLEPHRINE HCL 0.5 MG/5 ML AMPULE ONE (16:13)
[2023-04-12] MEDS ORDERED: ePHEDrine 50 MG/ML VIAL IVP ONE (16:17)
[2023-04-12] MEDS ORDERED: NALOXONE 0.4 MG/ML VIAL IVP PRN (17:06)
[2023-04-12] MEDS ORDERED: fentaNYL 100 MCG/2 ML VIAL IVP PRN (17:06)
[2023-04-12] MEDS ORDERED: ePHEDrine 50 MG/ML VIAL IVP PRN (17:06)
[2023-04-12] MEDS ORDERED: HYDROmorphone 0.5 MG/0.5 ML SYRINGE IVP PRN (17:06)
[2023-04-12] MEDS ORDERED: ATROPINE ABBOJECT 1 MG/10 ML SYRINGE IVP PRN (17:06)
[2023-04-12] MEDS ORDERED: MORPHINE 2 MG/ML CARPUJECT IVP PRN (17:06)
[2023-04-12] MEDS ORDERED: METOCLOPRAMIDE 10 MG/2 ML VIAL IVP PRN (17:06)
[2023-04-12] MEDS ORDERED: ROPIVACAINE 0.5% PF 20 ML VIAL ONE (17:29)
[2023-04-12] MEDS ORDERED: ONDANSETRON 4 MG/2 ML VIAL ONE ×3 (17:31→18:55)
[2023-04-12] MEDS ORDERED: DEXAMETHASONE 4 MG/ML VIAL ONE (17:31)
--- NOTE | 2023-04-12 17:42 | OPERATIVE REPORT ---
Operative Report - General Admit Date: 04/11/23 Procedure Date: 04/12/23 Planned Procedure: Open reduction internal fixation intertrochanteric fracture left hip Pre-Op Diagnosis: Displaced intertrochanteric fracture left hip Procedure Performed: Open reduction internal fixation intertrochanteric fracture left hip with [employer] intramedullary elder and integrated hip lag screw: 10 mm elder, 105 mm lag screw, 100 mm compression screw, 37.5 mm distal locking screw Post Op Diagnosis: Same as preoperative diagnosis - Procedure Note Primary Surgeon: Saad Terrazas MD Secondary Surgeon: Eliecer Ballard MD, Shell Roman PAC Anesthesia Provider: Adelina Melendez CRNA Anesthesia Technique: General ET tube Estimated Blood Loss (mL): 100 Indications: This is a 82-year-old gentleman with a history of ground-level fall onto left hip with subsequent pain and inability to bear weight on left leg. He had mild external rotation deformity with marked pain with any attempted movement of the left hip. His x-rays showed a mildly displaced intertrochanteric fracture of the left hip in association with degenerative joint disease left hip consistent with osteoarthritis left hip. He does have a history of coronary artery disease, coronary artery stents and is on Plavix as well as history of diabetes. He was in agreement to the surgery and understands that persistent pain secondary to osteoarthritis of the left hip is likely and could require surgical treatment in the future. He signed informed consent and is agreement to the open duction internal fixation of the intertrochanteric fracture of the left hip Findings: There is a displaced intertrochanteric fracture of the left hip with signs of osteoarthritis left hip joint Complications: None - Other Other Information/Narrative: After satisfactory spinal anesthesia was achieved, the patient was transferred to the [place] fracture table in the supine position. Boot traction was applied to the left foot and well-leg delatorre to the nonoperative right leg. Traction was applied to the left leg through the boot with the patella facing superiorly and the hip in a neutral position with regard to abduction and adduction and hip flexion/extension. The C-arm was used to assess the reduction and showed excellent alignment on both AP and lateral views. The left hip was then prepped and draped in a sterile manner in the usual fashion using a vertical [place] transparent barrier. A 4 to 5 cm incision was made in line with the greater trochanter but proximal to the greater trochanter. The subcutaneous tissue and fascia were split. A starting bone all was used to engage the trochanteric fossa at its most lateral edge. The starting awl was impacted to lesser trochanter and a guidepin was then inserted. The position of the guidepin was confirmed on both AP and lateral views. Reaming was then carried out with the starting reamer. The 10 mm diameter elder and guide was then utilized to insert the elder through the trochanteric area and pushed distally using C-arm image intensifier and biplanar mode. The leg screw guidepin was inserted through a separate incision more distal. This was inserted in the midline in both AP and lateral C arm images. The depth of the guidepin was 110 mm. The compression screw drills were then utilized both short and long. The antirotation bar was inserted. The lag screw reamer was then utilized and placed over the previously inserted pin to the appropriate depth. The 105 mm lag screw was inserted and the 100 compression screw followed achieving nice compression at the fracture site. The alignment of the fracture was very good on both AP and lateral views as well as the fixation. A third incision was made for the distal locking screw. Bicortical fixation was achieved with a 37.5 mm cortical screw. The wounds were irrigated. The subcutaneous tissue was closed with 2-0 Stratofix and the skin was closed with 3-0 Monocryl, Dermabond and dry sterile dressings. There is no deformity to the leg. The patient tolerated the procedure well. She did receive 2 g of Ancef prior to the incision and 1 gram of tranxemic acid.A physician human resources benefits assistant was medically necessary to help with prepping and draping, positioning, protection of vital structures, assistance during the procedure including wound closure, dressing and/or splinting.
[2023-04-12] MEDS ORDERED: LACTATED RINGERS 1,000 ML IV SCH (18:00)
[2023-04-12] MEDS ORDERED: LACTATED RINGERS 300 ML IV ONE ×2 (18:01)
[2023-04-12] MEDS ORDERED: ONDANSETRON 4 MG/2 ML VIAL IVP PRN (18:02)
[2023-04-12] MEDS: ONDANSETRON 4 MG/2 ML VIAL IVP PRN ×2 (18:19→18:47)
[2023-04-12] MEDS ORDERED: LACTATED RINGERS 1,000 ML IV ONE ×2 (18:24)
[2023-04-12] MEDS ORDERED: NS W/20 MEQ KCL 1,000 ML IV SCH (19:00)
[2023-04-12] MEDS ORDERED: PROCHLORPERAZINE 10 MG/2 ML VIAL IVP PRN (19:43)
--- NOTE | 2023-04-12 20:01 | ANESTHESIA POST OP EVALUATION ---
Anesthesia Post Eval - Post Anesthesia Eval Vitals: Last Vital Signs Temp 36.4 C L 04/12/23 19:32 Pulse 87 04/12/23 19:32 Resp 14 04/12/23 19:32 BP 116/59 L 04/12/23 19:32 Pulse Ox 99 04/12/23 19:32 O2 Flow Rate 4 04/12/23 19:00 CV Function Including HR & BP: Stable Pain Control: Satisfactory Nausea & Vomiting: Addtional Therapies Ordered Mental Status: Baseline Respiratory Status: Airway Patent Hydration Status: Satisfactory Anesthesia Complications: None
[2023-04-12] MEDS: ATORVASTATIN 10 MG TABLET PO SCH (21:05)
[2023-04-12] MEDS: ACETAMINOPHEN 325 MG TABLET PO PRN (22:35)
[2023-04-12] MEDS: ceFAZolin (2G) 2 GM in SODIUM CHLORIDE 0.9% MINIBAG 100 ML IV SCH (23:42)
[2023-04-13] MEDS: oxyCODONE 5 MG TABLET PO PRN ×4 (02:10→20:52)
[2023-04-13] MEDS: ACETAMINOPHEN 325 MG TABLET PO PRN (05:52)
[2023-04-13 05:59] LABS: BASOPHILS % (AUTO) 0.2 %; HCT - HEMATOCRIT 27.9 % (42.0-52.0); HGB - HEMOGLOBIN 8.8 g/dL (14.0-18.0); LYMPHOCYTES # (AUTO) 0.7 10^3/uL (1.5-3.5); LYMPHOCYTES % (AUTO) 6.1 %; MEAN CORPUSCULAR HEMOGLOBIN 30.8 pg (27.0-31.0); MEAN CORPUSCULAR HGB CONC 31.5 g/dL (32.0-36.0); MEAN CORPUSCULAR VOLUME 97.6 fL (80.0-94.0); MEAN PLATELET VOLUME 10.3 fL (7.4-11.4); MONOCYTES # (AUTO) 0.9 10^3/uL (0.0-1.0); MONOCYTES % (AUTO) 7.5 %; NEUTROPHILS # (AUTO) 9.8 10^3/uL (1.5-6.6); NEUTROPHILS % (AUTO) 85.8 %; PLT - PLATELET COUNT 126 10^3/uL (130-450); RED BLOOD COUNT 2.86 10^6/uL (4.70-6.10); RED CELL DISTRIBUTION WIDTH 13.6 % (12.0-15.0); WHITE BLOOD COUNT 11.4 x10^3/uL (4.8-10.8)
[2023-04-13 06:17] LABS: CALCIUM 8.1 mg/dL (8.5-10.3); CREATININE 1.4 mg/dL (0.6-1.3); POTASSIUM 4.8 mmol/L (3.5-4.5)
[2023-04-13] MEDS: INSULIN LISPRO 300 UNIT/3 ML PEN SUBQ SCH ×4 (08:12→20:55)
[2023-04-13] MEDS: carvediloL 3.125 MG TABLET PO SCH ×2 (08:13→20:53)
[2023-04-13] MEDS: SODIUM CHLORIDE FLUSH 0.9% 10 ML SYRINGE IVP SCH ×2 (08:14→16:56)
[2023-04-13] MEDS ORDERED: ceFAZolin (2G) 2 GM in SODIUM CHLORIDE 0.9% MINIBAG 100 ML IV SCH (09:00)
[2023-04-13] MEDS: ceFAZolin (2G) 2 GM in SODIUM CHLORIDE 0.9% MINIBAG 100 ML IV SCH (09:44)
--- NOTE | 2023-04-13 11:19 | PROVIDER PROGRESS NOTE ---
Assessment/Plan - Problem List (1) Acute anemia Assessment/Plan: POD 1 Hemoglobin 8.8, comparing to 12.1 at time of admission No sign of active bleeding Following H&H If hemoglobin less than 8, need transfusion (2) SRAVANTHI (acute kidney injury) Assessment/Plan: Creatinine 1.4 today comparing to 1.0 yesterday Likely due to acute anemia, poor renal perfusion Give IV fluid 500 cc Following renal function Encourage oral intake take Strict ins and Outs (3) Fracture, intertrochanteric, left femur Assessment/Plan: POD 1 PT OT follows patient Due to acute anemia Continue use SCD for DVT prophylaxis, hold Plavix today (4) CAD (coronary artery disease) Assessment/Plan: Appears stable, with acute anemia concerns of cardiac ischemia Check troponin level Check EKG (5) Diabetic acidosis, type II Assessment/Plan: A1c 8.1 Hyperglycemia noted with blood sugar 200s Add glargine 4 units at night Continue monitoring blood glucose (6) HTN (hypertension) Assessment/Plan: Appears stable Continue monitoring blood pressure Continue with current regimen (7) HLD (hyperlipidemia) Assessment/Plan: Continue home dose statin - Current Meds Current Meds: Current Medications Generic Name Dose Route Start Last Admin Trade Name Freq PRN Reason Stop Dose Admin Acetaminophen 650 mg 04/11/23 20:39 04/13/23 05:52 Acetaminophen 325 Mg Tablet PO 650 mg Q4HR PRN Administration Pain 1 to 4, or Fever Atorvastatin Calcium 5 mg 04/12/23 21:00 04/12/23 21:05 Atorvastatin 10 Mg Tablet PO 5 mg QPM FREDERIC Administration Carvedilol 3.125 mg 04/12/23 09:00 04/13/23 08:13 Carvedilol 3.125 Mg Tablet PO 3.125 mg BID FREDERIC Administration Insulin Human Lispro 0 unit 04/12/23 08:03 04/13/23 08:12 Insulin Lispro 300 Unit/3 Ml Pen SUBQ 2 unit 0800,1200,1600,2100 FREDERIC Administration Protocol Oxycodone HCl 5 mg 04/11/23 20:39 04/13/23 02:10 Oxycodone 5 Mg Tablet PO 5 mg Q4HR PRN Administration Pain 5 to 7 Prochlorperazine Edisylate 10 mg 04/12/23 19:43 04/12/23 19:54 Prochlorperazine 10 Mg/2 Ml Vial IVP 10 mg Q6HR PRN Administration Nausea / Vomiting Sodium Chloride 10 ml 04/12/23 01:00 04/13/23 08:14 Sodium Chloride Flush 0.9% 10 Ml Syringe IVP 10 ml 0100,0900,1700 FREDERIC Administration - Lab Result Fish Bone Diagrams: 04/13/23 05:37 04/13/23 05:37 - Additional Planning My Orders: My Active Orders 04/12/23 19:17 Telemetry- [RC] Q4HR 04/13/23 HEMOGLOBIN AND HEMATOCRIT [HEME] Stat TROPONIN I HIGH SENSITIVITY [CHEM] Stat 04/13/23 11:09 EKG - Electrocardiogram [RC] .ONCE 04/13/23 12:00 HEMOGLOBIN AND HEMATOCRIT [HEME] Timed TROPONIN I HIGH SENSITIVITY [CHEM] Routine 04/13/23 21:00 Insulin Glargine-Yfgn [Semglee] 4 unit SUBQ QPM Subjective - Subjective Patient Reports: Pain (Patient reports a lot of discomfort of left leg, reports his nausea is getting better, able to eat some food) Objective Vital Signs: Vital Signs - 24 hr 04/12/23 04/12/23 04/12/23 12:14 15:40 18:01 Temperature 36.7 C 36.8 C 36 C L Heart Rate 98 Heart Rate [ 78 79 Brachial] Respiratory 18 18 16 Rate Blood Pressure 137/78 H Blood Pressure 107/67 [Left Brachial artery] Blood Pressure 113/57 L [Right Brachial artery] O2 Saturation 96 97 98 If not protocol : Oxygen Flow, liters/minute 04/12/23 04/12/23 04/12/23 18:05 18:10 18:20 Temperature 36 C L 36 C L 36 C L Heart Rate 90 90 90 Heart Rate [ Brachial] Respiratory 13 14 14 Rate Blood Pressure 160/99 H 147/84 H 154/85 H Blood Pressure [Left Brachial artery] Blood Pressure [Right Brachial artery] O2 Saturation 99 100 100 If not protocol : Oxygen Flow, liters/minute 04/12/23 04/12/23 04/12/23 18:25 18:30 18:32 Temperature 36.1 C L 36.1 C L 36.4 C L Heart Rate 85 88 Heart Rate [ 86 Brachial] Respiratory 11 L 11 L 14 Rate Blood Pressure 153/82 H 144/79 H Blood Pressure 116/59 L [Left Brachial artery] Blood Pressure [Right Brachial artery] O2 Saturation 99 99 98 If not protocol : Oxygen Flow, liters/minute 04/12/23 04/12/23 04/12/23 18:40 19:00 19:32 Temperature 36.1 C L 36.8 C 36.4 C L Heart Rate 89 Heart Rate [ 102 H 87 Brachial] Respiratory 11 L 18 14 Rate Blood Pressure 134/71 H Blood Pressure 121/56 L 116/59 L [Left Brachial artery] Blood Pressure [Right Brachial artery] O2 Saturation 100 100 99 If not protocol 4 : Oxygen Flow, liters/minute 04/12/23 04/12/23 04/12/23 20:00 20:32 22:39 Temperature 36.5 C 36.9 C Heart Rate Heart Rate [ 81 79 87 Brachial] Respiratory 18 18 18 Rate Blood Pressure Blood Pressure 111/56 L 112/50 L 141/64 H [Left Brachial artery] Blood Pressure [Right Brachial artery] O2 Saturation 93 98 99 If not protocol : Oxygen Flow, liters/minute 04/12/23 04/13/23 04/13/23 23:45 05:46 08:39 Temperature 36.6 C 36.5 C 36.3 C L Heart Rate Heart Rate [ 88 80 67 Brachial] Respiratory 18 20 18 Rate Blood Pressure Blood Pressure 100/55 L [Left Brachial artery] Blood Pressure 118/53 L 118/51 L [Right Brachial artery] O2 Saturation 96 94 96 If not protocol : Oxygen Flow, liters/minute Oxygen O2 Source Room air I&O (Last 24 Hrs): Intake and Output Totals x24h 04/11/23 04/12/23 04/13/23 23:59 23:59 23:59 Intake Total 8568.331 1119.5 Output Total 0 1100 675 Balance 0 45.417 1012.5 General: Alert, Oriented x3 HEENT: PERRLA, EOMI Neck: Supple, No JVD Neuro: Alert, Non Focal Cardiovascular: Regular rate Respiratory: Chest non-tender, No respiratory distress Abdomen: No tenderness Extremities: Other (Left leg postop appearance, tender) - Results Results: Laboratory Results WBC 11.4 x10^3/uL (4.8-10.8) H 04/13/23 05:37 RBC 2.86 10^6/uL (4.70-6.10) L 04/13/23 05:37 Hgb 8.8 g/dL (14.0-18.0) L 04/13/23 05:37 Hct 27.9 % (42.0-52.0) L 04/13/23 05:37 MCV 97.6 fL (80.0-94.0) H 04/13/23 05:37 MCH 30.8 pg (27.0-31.0) 04/13/23 05:37 MCHC 31.5 g/dL (32.0-36.0) L 04/13/23 05:37 RDW 13.6 % (12.0-15.0) 04/13/23 05:37 Plt Count 126 10^3/uL (130-450) L 04/13/23 05:37 MPV 10.3 fL (7.4-11.4) 04/13/23 05:37 Neut # (Auto) 9.8 10^3/uL (1.5-6.6) H 04/13/23 05:37 Lymph # (Auto) 0.7 10^3/uL (1.5-3.5) L 04/13/23 05:37 [place] # (Auto) 0.9 10^3/uL (0.0-1.0) 04/13/23 05:37 Eos # (Auto) 0.0 10^3/uL (0.0-0.7) 04/13/23 05:37 Baso # (Auto) 0.0 10^3/uL (0.0-0.1) 04/13/23 05:37 Absolute Nucleated RBC 0.00 x10^3/uL 04/13/23 05:37 Nucleated RBC % 0.0 /100WBC 04/13/23 05:37 PT 11.5 secs (9.9-12.6) 04/11/23 18:14 INR 1.1 (0.8-1.2) 04/11/23 18:14 APTT 27.8 secs (24.9-33.3) 04/11/23 18:14 Sodium 138 mmol/L (135-145) 04/13/23 05:37 Potassium 4.8 mmol/L (3.5-4.5) H 04/13/23 05:37 Chloride 105 mmol/L (101-111) 04/13/23 05:37 Carbon Dioxide 16 mmol/L (21-32) L 04/13/23 05:37 Anion Gap 17.0 (6-13) H 04/13/23 05:37 BUN 40 mg/dL (6-20) H 04/13/23 05:37 Creatinine 1.4 mg/dL (0.6-1.3) H 04/13/23 05:37 Estimated GFR (MDRD) 48 (>89) L 04/13/23 05:37 Glucose 256 mg/dL (74-104) H 04/13/23 05:37 POC Whole Bld Glucose 215 mg/dL (70 - 100) H 04/13/23 07:28 Estimat Average Glucose 186 mg/dL (70-100) H 04/12/23 05:27 Hemoglobin A1c % 8.1 % (4.27-6.07) H 04/12/23 05:27 Calcium 8.1 mg/dL (8.5-10.3) L 04/13/23 05:37 Magnesium 1.9 mg/dL (1.7-2.3) 04/11/23 18:14 Total Bilirubin 0.6 mg/dL (0.2-1.0) 04/11/23 18:14 AST 15 IU/L (10-42) 04/11/23 18:14 ALT 16 IU/L (10-60) 04/11/23 18:14 Alkaline Phosphatase 77 IU/L (42-121) 04/11/23 18:14 Total Protein 7.9 g/dL (6.4-8.9) 04/11/23 18:14 Albumin 5.1 g/dL (3.2-5.5) 04/11/23 18:14 Globulin 2.8 g/dL (2.1-4.2) 04/11/23 18:14 Albumin/Globulin Ratio 1.8 (1.0-2.2) 04/11/23 18:14 Lipase < 10 U/L (11-82) L 04/11/23 18:14 Urine Color YELLOW 04/11/23 22:45 Urine Clarity CLEAR (CLEAR) 04/11/23 22:45 Urine pH 5.5 PH (5.0-7.5) 04/11/23 22:45 Ur Specific [place] 1.020 (1.002-1.030) 04/11/23 22:45 Urine Protein NEGATIVE mg/dL (NEGATIVE) 04/11/23 22:45 Urine Glucose (UA) >=1000 mg/dL (NEGATIVE) H 04/11/23 22:45 Urine Ketones 15 mg/dL (NEGATIVE) H 04/11/23 22:45 Urine Occult Blood NEGATIVE (NEGATIVE) 04/11/23 22:45 Urine Nitrite NEGATIVE (NEGATIVE) 04/11/23 22:45 Urine Bilirubin NEGATIVE (NEGATIVE) 04/11/23 22:45 Urine Urobilinogen 0.2 (NORMAL) E.U./dL (NORMAL) 04/11/23 22:45 Ur Leukocyte Esterase NEGATIVE (NEGATIVE) 04/11/23 22:45 Ur Microscopic Review NOT INDICATED 04/11/23 22:45 Urine Culture Comments NOT INDICATED 04/11/23 22:45 Sepsis Event Note (H) - Evaluation Current Stage of Sepsis: Ruled out ABX Reporting Has patient been on IV antibiotics over the past 48 hours?: Yes Current Medications - Current Medications Current Medications: Active Medications Acetaminophen (Acetaminophen 325 Mg Tablet) 650 mg PO Q4HR PRN PRN Reason: Pain 1 to 4, or Fever Last Admin: 04/13/23 05:52 Dose: 650 mg Atorvastatin Calcium (Atorvastatin 10 Mg Tablet) 5 mg PO QPM [facility] Last Admin: 04/12/23 21:05 Dose: 5 mg Carvedilol (Carvedilol 3.125 Mg Tablet) 3.125 mg PO BID [facility] Last Admin: 04/13/23 08:13 Dose: 3.125 mg Docusate Sodium (Docusate Sodium 100 Mg Capsule) 100 mg PO BID PRN PRN Reason: Constipation Hydralazine HCl (Hydralazine 10 Mg Tablet) 10 mg PO Q6H PRN PRN Reason: Blood Pressure Insulin Glargine-yfgn (Insulin Glargine-Yfgn 300 Unit/3 Ml Pen) 4 unit SUBQ QPM FREDERIC Insulin Human Lispro (Insulin Lispro 300 Unit/3 Ml Pen) 0 unit SUBQ 0800,1200,1600,2100 FREDERIC; Protocol Last Admin: 04/13/23 08:12 Dose: 2 unit Morphine Sulfate (Morphine 2 Mg/Ml Carpuject) 2 mg IVP Q4HR PRN PRN Reason: Pain 8 to 10 Ondansetron HCl (Ondansetron Odt 4 Mg Tablet) 4 mg TL Q6HR PRN PRN Reason: Nausea / Vomiting Ondansetron HCl (Ondansetron 4 Mg/2 Ml Vial) 4 mg IVP Q6HR PRN PRN Reason: Nausea / Vomiting Ondansetron HCl (Ondansetron 4 Mg/2 Ml Vial) 4 mg IVP Q6HR PRN PRN Reason: Nausea / Vomiting Oxycodone HCl (Oxycodone 5 Mg Tablet) 5 mg PO Q4HR PRN PRN Reason: Pain 5 to 7 Last Admin: 04/13/23 02:10 Dose: 5 mg Prochlorperazine Edisylate (Prochlorperazine 10 Mg/2 Ml Vial) 10 mg IVP Q6HR PRN PRN Reason: Nausea / Vomiting Last Admin: 04/12/23 19:54 Dose: 10 mg Sodium Chloride (Sodium Chloride Flush 0.9% 10 Ml Syringe) 10 ml IVP PRN PRN PRN Reason: NEEDED PER PROVIDER ORDERS Sodium Chloride (Sodium Chloride Flush 0.9% 10 Ml Syringe) 10 ml IVP 0100,0900,1700 FREDERIC Last Admin: 04/13/23 08:14 Dose: 10 ml Clopidogrel [Plavix] 75 mg PO DAILY 04/11/23 Empagliflozin [Jardiance] 25 mg PO DAILY 04/11/23 Losartan [Cozaar] 50 mg PO DAILY 04/11/23 Rosuvastatin Calcium [Crestor] 2.5 mg PO QPM 04/11/23 carvediloL [Coreg] 3.125 mg PO BID 04/11/23 Sitagliptin Phos/Metformin HCl [Janumet Xr 50-1,000 mg Tablet] 1 tab PO DAILY 04/12/23
[2023-04-13 11:35] LABS: HCT - HEMATOCRIT 26.7 % (42.0-52.0); HGB - HEMOGLOBIN 8.8 g/dL (14.0-18.0)
[2023-04-13] MEDS ORDERED: SODIUM CHLORIDE 0.9% 1,000 ML IV SCH (12:00)
[2023-04-13] MEDS ORDERED: SODIUM CHLORIDE 0.9% 500 ML IV ONE (12:00)
[2023-04-13] MEDS: ACETAMINOPHEN 325 MG TABLET PO SCH ×3 (12:52→20:53)
--- NOTE | 2023-04-13 13:04 | PROVIDER PROGRESS NOTE ---
Subjective - General Admit Date: 04/11/23 Procedure Date: 04/12/23 Post Op Days: 1 Procedure Performed: Left hip open reduction internal fixation - Review of Systems All Other Systems: positive: Reviewed and negative - Other Other Information/Narrative: alert, semirecumbent in bed He states he has not yet been out of bed with physical therapy. He is using a urinal as he has not been up to bathroom or chair He is passing urine spontaneously He denies chest pain and dyspnea He has not eaten since surgery due to fear of needing to go to the bathroom and limited mobility. No nausea or vomiting otherwise he reports mild pain in the left hip Objective - Patient Data Reviewed Vital Signs: Yes Vital Signs: Vital Signs x48h Temp Pulse Resp BP Pulse Ox 04/13/23 12:07 36.4 C L 89 18 118/61 99 04/13/23 08:39 36.3 C L 67 18 118/51 L 96 04/13/23 05:46 36.5 C 80 20 118/53 L 94 Weight: Weight 04/11/23 04/12/23 04/13/23 23:59 23:59 23:59 Weight (kg) 82.5 kg 82.5 kg Intake & Output: Intake and Output Totals x24h 04/11/23 04/12/23 04/13/23 23:59 23:59 23:59 Intake Total 1659.821 2953.5 Output Total 0 1100 1175 Balance 0 45.417 852.5 - Lab Results Lab Results: 04/13/23 11:25 04/13/23 05:37 Other Lab Results: Lab Results x24hrs 04/13/23 04/13/23 04/13/23 Range/Units 11:38 11:25 11:25 WBC (4.8-10.8) x10^3/uL RBC (4.70-6.10) 10^6/uL Hgb 8.8 L (14.0-18.0) g/dL Hct 26.7 L (42.0-52.0) % MCV (80.0-94.0) fL MCH (27.0-31.0) pg MCHC (32.0-36.0) g/dL RDW (12.0-15.0) % Plt Count (130-450) 10^3/uL MPV (7.4-11.4) fL Neut # (Auto) (1.5-6.6) 10^3/uL Lymph # (Auto) (1.5-3.5) 10^3/uL [place] # (Auto) (0.0-1.0) 10^3/uL Eos # (Auto) (0.0-0.7) 10^3/uL Baso # (Auto) (0.0-0.1) 10^3/uL Absolute Nucleated RBC x10^3/uL Nucleated RBC % /100WBC Sodium (135-145) mmol/L Potassium (3.5-4.5) mmol/L Chloride (101-111) mmol/L Carbon Dioxide (21-32) mmol/L Anion Gap (6-13) BUN (6-20) mg/dL Creatinine (0.6-1.3) mg/dL Estimated GFR (MDRD) (>89) Glucose (74-104) mg/dL POC Whole Bld Glucose 242 H (70 - 100) mg/dL Calcium (8.5-10.3) mg/dL Troponin I High Sens 10.7 (2.3-19.7) ng/L 04/13/23 04/13/23 04/13/23 Range/Units 07:28 05:37 05:37 WBC 11.4 H (4.8-10.8) x10^3/uL RBC 2.86 L (4.70-6.10) 10^6/uL Hgb 8.8 L (14.0-18.0) g/dL Hct 27.9 L (42.0-52.0) % MCV 97.6 H (80.0-94.0) fL MCH 30.8 (27.0-31.0) pg MCHC 31.5 L (32.0-36.0) g/dL RDW 13.6 (12.0-15.0) % Plt Count 126 L (130-450) 10^3/uL MPV 10.3 (7.4-11.4) fL Neut # (Auto) 9.8 H (1.5-6.6) 10^3/uL Lymph # (Auto) 0.7 L (1.5-3.5) 10^3/uL [place] # (Auto) 0.9 (0.0-1.0) 10^3/uL Eos # (Auto) 0.0 (0.0-0.7) 10^3/uL Baso # (Auto) 0.0 (0.0-0.1) 10^3/uL Absolute Nucleated RBC 0.00 x10^3/uL Nucleated RBC % 0.0 /100WBC Sodium 138 (135-145) mmol/L Potassium 4.8 H (3.5-4.5) mmol/L Chloride 105 (101-111) mmol/L Carbon Dioxide 16 L (21-32) mmol/L Anion Gap 17.0 H (6-13) BUN 40 H (6-20) mg/dL Creatinine 1.4 H (0.6-1.3) mg/dL Estimated GFR (MDRD) 48 L (>89) Glucose 256 H (74-104) mg/dL POC Whole Bld Glucose 215 H (70 - 100) mg/dL Calcium 8.1 L (8.5-10.3) mg/dL Troponin I High Sens (2.3-19.7) ng/L 04/12/23 04/12/23 Range/Units 20:39 18:07 WBC (4.8-10.8) x10^3/uL RBC (4.70-6.10) 10^6/uL Hgb (14.0-18.0) g/dL Hct (42.0-52.0) % MCV (80.0-94.0) fL MCH (27.0-31.0) pg MCHC (32.0-36.0) g/dL RDW (12.0-15.0) % Plt Count (130-450) 10^3/uL MPV (7.4-11.4) fL Neut # (Auto) (1.5-6.6) 10^3/uL Lymph # (Auto) (1.5-3.5) 10^3/uL [place] # (Auto) (0.0-1.0) 10^3/uL Eos # (Auto) (0.0-0.7) 10^3/uL Baso # (Auto) (0.0-0.1) 10^3/uL Absolute Nucleated RBC x10^3/uL Nucleated RBC % /100WBC Sodium (135-145) mmol/L Potassium (3.5-4.5) mmol/L Chloride (101-111) mmol/L Carbon Dioxide (21-32) mmol/L Anion Gap (6-13) BUN (6-20) mg/dL Creatinine (0.6-1.3) mg/dL Estimated GFR (MDRD) (>89) Glucose (74-104) mg/dL POC Whole Bld Glucose 151 H 145 H (70 - 100) mg/dL Calcium (8.5-10.3) mg/dL Troponin I High Sens (2.3-19.7) ng/L - Current Medications Current Medications: Current Medications Generic Name Dose Route Start Last Admin Trade Name Freq PRN Reason Stop Dose Admin Acetaminophen 650 mg 04/13/23 13:00 04/13/23 12:52 Acetaminophen 325 Mg Tablet PO 650 mg Q4HR FREDERIC Administration Atorvastatin Calcium 5 mg 04/12/23 21:00 04/12/23 21:05 Atorvastatin 10 Mg Tablet PO 5 mg QPM FREDERIC Administration Carvedilol 3.125 mg 04/12/23 09:00 04/13/23 08:13 Carvedilol 3.125 Mg Tablet PO 3.125 mg BID FREDERIC Administration Sodium Chloride 500 mls @ 83.333 mls/hr 04/13/23 12:00 04/13/23 11:40 Normal Saline 0.9% IV 04/13/23 17:59 83.333 mls/hr .Q6H ONE Administration Insulin Human Lispro 0 unit 04/12/23 08:03 04/13/23 11:40 Insulin Lispro 300 Unit/3 Ml Pen SUBQ 3 unit 0800,1200,1600,2100 FREDERIC Administration Protocol Oxycodone HCl 5 mg 04/11/23 20:39 04/13/23 12:35 Oxycodone 5 Mg Tablet PO 5 mg Q4HR PRN Administration Pain 5 to 7 Prochlorperazine Edisylate 10 mg 04/12/23 19:43 04/12/23 19:54 Prochlorperazine 10 Mg/2 Ml Vial IVP 10 mg Q6HR PRN Administration Nausea / Vomiting Sodium Chloride 10 ml 04/12/23 01:00 04/13/23 08:14 Sodium Chloride Flush 0.9% 10 Ml Syringe IVP 10 ml 0100,0900,1700 [facility] Administration - Physical Exam Comments/Other: alert and oriented, lying in bed, no acute distress Mepilex dressings are dry and intact without drainage or hematoma He is neurovascular intact to left lower extremity the femoral and sciatic nerve distributions ABX Reporting Has patient been on IV antibiotics over the past 48 hours?: Yes Impression/Plan - Problem List Problem List: 82-year-old male with past medical history of diabetes mellitus type 2 and coronary artery disease (status post stent placement on Plavix) who is postoperative day 1 from an open reduction internal fixation of the left hip with intramedullary nail and hip screws by Dr. Terrazas. At time of evaluation, he had not eaten and reported mild pain. Not yet been evaluated by physical therapy. Plan: - Resume home Plavix when hemoglobin is stable, defer to expertise of hospitalist physician. SCDs while in hospital - Physical and occupational therapy evaluation today and assessment for discharge - Pain control per hospitalist. Scheduled acetaminophen today given pain during my evaluation. Avoid NSAIDs given use of Plavix - Weight bearing as tolerated with front wheeled walker at all times - Follow up with orthopedic clinic within 1 week of discharge - Mepilex dressings to remain in place until follow up - Bowel regimen - Carbohydrate controlled diet, IV fluids to be discontinued when tolerating oral diet without nausea and emesis - Appreciate input of internal medicine physician regarding chronic medical comorbidities. Goal blood glucose postoperatively would be less than 180
[2023-04-13] MEDS: ATORVASTATIN 10 MG TABLET PO SCH (20:52)
[2023-04-13] MEDS ORDERED: INSULIN GLARGINE-YFGN 300 UNIT/3 ML PEN SUBQ SCH (21:00)
[2023-04-14] MEDS: ACETAMINOPHEN 325 MG TABLET PO SCH ×6 (00:45→21:27)
[2023-04-14] MEDS: SODIUM CHLORIDE FLUSH 0.9% 10 ML SYRINGE IVP SCH ×3 (00:45→21:26)
[2023-04-14] MEDS: oxyCODONE 5 MG TABLET PO PRN ×3 (05:44→15:44)
[2023-04-14 05:54] LABS: BASOPHILS % (AUTO) 0.1 %; EOSINOPHILS % (AUTO) 0.6 %; HCT - HEMATOCRIT 21.3 % (42.0-52.0); HGB - HEMOGLOBIN 7.2 g/dL (14.0-18.0); LYMPHOCYTES # (AUTO) 1.1 10^3/uL (1.5-3.5); LYMPHOCYTES % (AUTO) 15.8 %; MEAN CORPUSCULAR HEMOGLOBIN 31.2 pg (27.0-31.0); MEAN CORPUSCULAR HGB CONC 33.8 g/dL (32.0-36.0); MEAN CORPUSCULAR VOLUME 92.2 fL (80.0-94.0); MEAN PLATELET VOLUME 10.1 fL (7.4-11.4); MONOCYTES # (AUTO) 0.9 10^3/uL (0.0-1.0); MONOCYTES % (AUTO) 12.9 %; NEUTROPHILS # (AUTO) 4.8 10^3/uL (1.5-6.6); NEUTROPHILS % (AUTO) 70.3 %; PLT - PLATELET COUNT 101 10^3/uL (130-450); RED BLOOD COUNT 2.31 10^6/uL (4.70-6.10); RED CELL DISTRIBUTION WIDTH 13.8 % (12.0-15.0); WHITE BLOOD COUNT 6.8 x10^3/uL (4.8-10.8)
[2023-04-14 06:12] LABS: CALCIUM 8.3 mg/dL (8.5-10.3); CREATININE 1.1 mg/dL (0.6-1.3); POTASSIUM 4.2 mmol/L (3.5-4.5)
[2023-04-14] MEDS ORDERED: FUROSEMIDE 20 MG/2 ML VIAL IVP PRN (07:53)
--- NOTE | 2023-04-14 07:57 | PROVIDER PROGRESS NOTE ---
Assessment/Plan - Problem List (1) Acute anemia Assessment/Plan: Hemoglobin dropped to 7.2 This patient has history of CAD, give 2 unit of PRBC The goal is to keep hemoglobin over 9 May be related to Plavix use prior procedure (2) SRAVANTHI (acute kidney injury) Assessment/Plan: Resolved, creatinine 1.1, comparing to 1.4 yesterday Its back to his baseline Continue monitoring renal function (3) Fracture, intertrochanteric, left femur Assessment/Plan: POD 2, Patient is able to get up and walk to the bedside commode multiple times. Continue PT OT tomorrow (4) CAD (coronary artery disease) Assessment/Plan: Appears stable Continue with beta-savanah treatment, hold Plavix due to acute anemia (5) Diabetic acidosis, type II Assessment/Plan: Accelerated hyperglycemia with blood glucose 200s Increase glargine dose Increased insulin sliding scale to moderate high dose Continue diabetes diet (6) HTN (hypertension) Assessment/Plan: Stable, continue on current regimen (7) HLD (hyperlipidemia) Assessment/Plan: Continue on statin - Current Meds Current Meds: Current Medications Generic Name Dose Route Start Last Admin Trade Name Freq PRN Reason Stop Dose Admin Acetaminophen 650 mg 04/13/23 13:00 04/14/23 05:44 Acetaminophen 325 Mg Tablet PO 650 mg Q4HR FREDERIC Administration Atorvastatin Calcium 5 mg 04/12/23 21:00 04/13/23 20:52 Atorvastatin 10 Mg Tablet PO 5 mg QPM FREDERIC Administration Carvedilol 3.125 mg 04/12/23 09:00 04/13/23 20:53 Carvedilol 3.125 Mg Tablet PO 3.125 mg BID FREDERIC Administration Insulin Glargine-yfgn 4 unit 04/13/23 21:00 04/13/23 20:54 Insulin Glargine-Yfgn 300 Unit/3 Ml Pen SUBQ 4 unit QPM FREDERIC Administration Oxycodone HCl 5 mg 04/11/23 20:39 04/14/23 05:44 Oxycodone 5 Mg Tablet PO 5 mg Q4HR PRN Administration Pain 5 to 7 Prochlorperazine Edisylate 10 mg 04/12/23 19:43 04/12/23 19:54 Prochlorperazine 10 Mg/2 Ml Vial IVP 10 mg Q6HR PRN Administration Nausea / Vomiting Sodium Chloride 10 ml 04/12/23 01:00 04/14/23 00:45 Sodium Chloride Flush 0.9% 10 Ml Syringe IVP 10 ml 0100,0900,1700 [facility] Administration - Lab Result Fish Bone Diagrams: 04/14/23 05:01 04/14/23 05:01 - Additional Planning My Orders: My Active Orders 04/13/23 21:00 Insulin Glargine-Yfgn [Semglee] 4 unit SUBQ QPM 04/14/23 RBC, LEUKOREDUCED Stat TYPE AND SCREEN Stat 04/14/23 07:53 Transfuse RBCs Leukoreduced [RC] .ONCE FUROSEMIDE INJ 20mg VIAL [LASIX INJ 20mg VIAL] 20 mg IVP ONCE PRN Subjective - Subjective Patient Reports: Other (Overall feels better, however he concerns about hisAnemia) Objective Vital Signs: Vital Signs - 24 hr 04/13/23 04/13/23 04/13/23 08:39 12:07 13:42 Temperature 36.3 C L 36.4 C L Heart Rate [ 97 Activity] Heart Rate [ 67 89 Brachial] Heart Rate [ 102 H Sitting] Heart Rate [ 90 Supine] Respiratory 18 18 Rate Blood Pressure 139/107 H [Activity] Blood Pressure [Left Brachial artery] Blood Pressure 118/51 L 118/61 [Right Brachial artery] Blood Pressure 128/78 [Sitting] Blood Pressure 110/99 H [Standing] Blood Pressure 126/82 H [Supine] O2 Saturation 96 99 04/13/23 04/13/23 04/13/23 13:45 16:02 20:10 Temperature 36.3 C L 36.4 C L Heart Rate [ 97 Activity] Heart Rate [ 87 91 Brachial] Heart Rate [ 102 H Sitting] Heart Rate [ 90 Supine] Respiratory 18 18 Rate Blood Pressure 139/107 H [Activity] Blood Pressure 118/61 144/76 H [Left Brachial artery] Blood Pressure [Right Brachial artery] Blood Pressure 128/78 [Sitting] Blood Pressure 110/99 H [Standing] Blood Pressure 126/82 H [Supine] O2 Saturation 98 99 04/14/23 04/14/23 04/14/23 00:13 05:00 07:50 Temperature 36.3 C L 36.4 C L 36.7 C Heart Rate [ Activity] Heart Rate [ 87 78 78 Brachial] Heart Rate [ Sitting] Heart Rate [ Supine] Respiratory 16 16 18 Rate Blood Pressure [Activity] Blood Pressure 100/50 L 132/61 H 131/73 H [Left Brachial artery] Blood Pressure [Right Brachial artery] Blood Pressure [Sitting] Blood Pressure [Standing] Blood Pressure [Supine] O2 Saturation 97 98 100 Oxygen O2 Source Room air I&O (Last 24 Hrs): Intake and Output Totals x24h 04/12/23 04/13/23 04/14/23 23:59 23:59 23:59 Intake Total 7532.010 3505.5 200 Output Total 1100 2525 875 Balance 45.417 1142.5 -675 General: Alert, Oriented x3 HEENT: PERRLA, EOMI Neck: Supple, No JVD Neuro: Alert Cardiovascular: Regular rate, Normal S1, Normal S2 Respiratory: No respiratory distress Abdomen: Normal bowel sounds Extremities: No clubbing, No edema, Other (Left leg postop appearance, dressing clean and dry, no sign of hematoma, no skin color change) - Results Results: Laboratory Results WBC 6.8 x10^3/uL (4.8-10.8) 04/14/23 05:01 RBC 2.31 10^6/uL (4.70-6.10) L 04/14/23 05:01 Hgb 7.2 g/dL (14.0-18.0) L 04/14/23 05:01 Hct 21.3 % (42.0-52.0) L 04/14/23 05:01 MCV 92.2 fL (80.0-94.0) 04/14/23 05:01 MCH 31.2 pg (27.0-31.0) H 04/14/23 05:01 MCHC 33.8 g/dL (32.0-36.0) 04/14/23 05:01 RDW 13.8 % (12.0-15.0) 04/14/23 05:01 Plt Count 101 10^3/uL (130-450) L 04/14/23 05:01 MPV 10.1 fL (7.4-11.4) 04/14/23 05:01 Neut # (Auto) 4.8 10^3/uL (1.5-6.6) 04/14/23 05:01 Lymph # (Auto) 1.1 10^3/uL (1.5-3.5) L 04/14/23 05:01 Will # (Auto) 0.9 10^3/uL (0.0-1.0) 04/14/23 05:01 Eos # (Auto) 0.0 10^3/uL (0.0-0.7) 04/14/23 05:01 Baso # (Auto) 0.0 10^3/uL (0.0-0.1) 04/14/23 05:01 Absolute Nucleated RBC 0.00 x10^3/uL 04/14/23 05:01 Nucleated RBC % 0.0 /100WBC 04/14/23 05:01 PT 11.5 secs (9.9-12.6) 04/11/23 18:14 INR 1.1 (0.8-1.2) 04/11/23 18:14 APTT 27.8 secs (24.9-33.3) 04/11/23 18:14 Sodium 137 mmol/L (135-145) 04/14/23 05:01 Potassium 4.2 mmol/L (3.5-4.5) 04/14/23 05:01 Chloride 107 mmol/L (101-111) 04/14/23 05:01 Carbon Dioxide 24 mmol/L (21-32) 04/14/23 05:01 Anion Gap 6.0 (6-13) 04/14/23 05:01 BUN 36 mg/dL (6-20) H 04/14/23 05:01 Creatinine 1.1 mg/dL (0.6-1.3) 04/14/23 05:01 Estimated GFR (MDRD) 64 (>89) L 04/14/23 05:01 Glucose 194 mg/dL (74-104) H 04/14/23 05:01 POC Whole Bld Glucose 182 mg/dL (70 - 100) H 04/14/23 07:43 Estimat Average Glucose 186 mg/dL (70-100) H 04/12/23 05:27 Hemoglobin A1c % 8.1 % (4.27-6.07) H 04/12/23 05:27 Calcium 8.3 mg/dL (8.5-10.3) L 04/14/23 05:01 Magnesium 1.9 mg/dL (1.7-2.3) 04/11/23 18:14 Total Bilirubin 0.6 mg/dL (0.2-1.0) 04/11/23 18:14 AST 15 IU/L (10-42) 04/11/23 18:14 ALT 16 IU/L (10-60) 04/11/23 18:14 Alkaline Phosphatase 77 IU/L (42-121) 04/11/23 18:14 Troponin I High Sens 10.7 ng/L (2.3-19.7) 04/13/23 11:25 Total Protein 7.9 g/dL (6.4-8.9) 04/11/23 18:14 Albumin 5.1 g/dL (3.2-5.5) 04/11/23 18:14 Globulin 2.8 g/dL (2.1-4.2) 04/11/23 18:14 Albumin/Globulin Ratio 1.8 (1.0-2.2) 04/11/23 18:14 Lipase < 10 U/L (11-82) L 04/11/23 18:14 Urine Color YELLOW 04/11/23 22:45 Urine Clarity CLEAR (CLEAR) 04/11/23 22:45 Urine pH 5.5 PH (5.0-7.5) 04/11/23 22:45 Ur Specific [place] 1.020 (1.002-1.030) 04/11/23 22:45 Urine Protein NEGATIVE mg/dL (NEGATIVE) 04/11/23 22:45 Urine Glucose (UA) >=1000 mg/dL (NEGATIVE) H 04/11/23 22:45 Urine Ketones 15 mg/dL (NEGATIVE) H 04/11/23 22:45 Urine Occult Blood NEGATIVE (NEGATIVE) 04/11/23 22:45 Urine Nitrite NEGATIVE (NEGATIVE) 04/11/23 22:45 Urine Bilirubin NEGATIVE (NEGATIVE) 04/11/23 22:45 Urine Urobilinogen 0.2 (NORMAL) E.U./dL (NORMAL) 04/11/23 22:45 Ur Leukocyte Esterase NEGATIVE (NEGATIVE) 04/11/23 22:45 Ur Microscopic Review NOT INDICATED 04/11/23 22:45 Urine Culture Comments NOT INDICATED 04/11/23 22:45 Sepsis Event Note (H) - Evaluation Current Stage of Sepsis: Ruled out Current Medications - Current Medications Current Medications: Active Medications Acetaminophen (Acetaminophen 325 Mg Tablet) 650 mg PO Q4HR [facility] Last Admin: 04/14/23 12:56 Dose: 650 mg Atorvastatin Calcium (Atorvastatin 10 Mg Tablet) 5 mg PO QPM [facility] Last Admin: 04/13/23 20:52 Dose: 5 mg Carvedilol (Carvedilol 3.125 Mg Tablet) 3.125 mg PO BID [facility] Last Admin: 04/14/23 08:25 Dose: 3.125 mg Docusate Sodium (Docusate Sodium 100 Mg Capsule) 100 mg PO BID PRN PRN Reason: Constipation Last Admin: 04/14/23 08:24 Dose: 100 mg Furosemide (Furosemide 20 Mg/2 Ml Vial) 20 mg IVP ONCE PRN PRN Reason: Between units Stop: 04/15/23 07:52 Hydralazine HCl (Hydralazine 10 Mg Tablet) 10 mg PO Q6H PRN PRN Reason: Blood Pressure Insulin Glargine-yfgn (Insulin Glargine-Yfgn 300 Unit/3 Ml Pen) 6 unit SUBQ QPM [facility] Insulin Human Lispro (Insulin Lispro 300 Unit/3 Ml Pen) 2 - 10 unit SUBQ 0800,1200,1700,2100 [facility]; Protocol Last Admin: 04/14/23 12:01 Dose: 6 unit Morphine Sulfate (Morphine 2 Mg/Ml Carpuject) 2 mg IVP Q4HR PRN PRN Reason: Pain 8 to 10 Ondansetron HCl (Ondansetron Odt 4 Mg Tablet) 4 mg TL Q6HR PRN PRN Reason: Nausea / Vomiting Ondansetron HCl (Ondansetron 4 Mg/2 Ml Vial) 4 mg IVP Q6HR PRN PRN Reason: Nausea / Vomiting Ondansetron HCl (Ondansetron 4 Mg/2 Ml Vial) 4 mg IVP Q6HR PRN PRN Reason: Nausea / Vomiting Oxycodone HCl (Oxycodone 5 Mg Tablet) 5 mg PO Q4HR PRN PRN Reason: Pain 5 to 7 Last Admin: 04/14/23 10:23 Dose: 5 mg Polyethylene Glycol (Polyethylene Glycol 3350 17 Gm Packet) 17 gm PO DAILY [facility] Last Admin: 04/14/23 08:24 Dose: 17 gm Prochlorperazine Edisylate (Prochlorperazine 10 Mg/2 Ml Vial) 10 mg IVP Q6HR PRN PRN Reason: Nausea / Vomiting Last Admin: 04/12/23 19:54 Dose: 10 mg Sodium Chloride (Sodium Chloride Flush 0.9% 10 Ml Syringe) 10 ml IVP PRN PRN PRN Reason: NEEDED PER PROVIDER ORDERS Sodium Chloride (Sodium Chloride Flush 0.9% 10 Ml Syringe) 10 ml IVP 0100,0900,1700 FREDERIC Last Admin: 04/14/23 08:31 Dose: 10 ml Clopidogrel [Plavix] 75 mg PO DAILY 04/11/23 Empagliflozin [Jardiance] 25 mg PO DAILY 04/11/23 Losartan [Cozaar] 50 mg PO DAILY 04/11/23 Rosuvastatin Calcium [Crestor] 2.5 mg PO QPM 04/11/23 carvediloL [Coreg] 3.125 mg PO BID 04/11/23 Sitagliptin Phos/Metformin HCl [Janumet Xr 50-1,000 mg Tablet] 1 tab PO DAILY 04/12/23
[2023-04-14] MEDS: polyethylene glycoL 3350 17 GM PACKET PO SCH (08:24)
[2023-04-14] MEDS: DOCUSATE SODIUM 100 MG CAPSULE PO PRN ×2 (08:24→21:29)
[2023-04-14] MEDS: carvediloL 3.125 MG TABLET PO SCH ×2 (08:25→21:27)
[2023-04-14] MEDS: INSULIN LISPRO 300 UNIT/3 ML PEN SUBQ SCH ×4 (08:35→21:29)
--- NOTE | 2023-04-14 10:39 | PROVIDER PROGRESS NOTE ---
Subjective - General Admit Date: 04/11/23 Procedure Date: 04/12/23 Post Op Days: 2 Procedure Performed: Left hip open reduction internal fixation - Review of Systems All Other Systems: positive: Reviewed and negative - Other Other Information/Narrative: Patient reports pain to his left hip. His pain to the left hip is decreasing since surgery. He is able to ambulate with walker to bathroom and back to bed this morning. He denies chest pain or shortness of breath. He is talking comfortably. Objective - Patient Data Vital Signs: Vital Signs x48h Temp Pulse Resp BP BP Pulse Ox 04/14/23 10:28 36.1 C L 83 16 108/57 L 99 04/14/23 10:04 36.4 C L 90 124/71 96 04/14/23 07:50 36.7 C 78 18 131/73 H 100 04/14/23 05:00 36.4 C L 78 16 132/61 H 98 Weight: Weight 04/12/23 04/13/23 04/14/23 23:59 23:59 23:59 Weight (kg) 82.5 kg Intake & Output: Intake and Output Totals x24h 04/12/23 04/13/23 04/14/23 23:59 23:59 23:59 Intake Total 3165.405 7253.5 680 Output Total 1100 2525 875 Balance 45.417 1142.5 -195 - Lab Results Lab Results: 04/14/23 05:01 04/14/23 05:01 Other Lab Results: Lab Results x24hrs 04/14/23 04/14/23 04/14/23 Range/Units 08:10 07:43 05:01 WBC (4.8-10.8) x10^3/uL RBC (4.70-6.10) 10^6/uL Hgb (14.0-18.0) g/dL Hct (42.0-52.0) % MCV (80.0-94.0) fL MCH (27.0-31.0) pg MCHC (32.0-36.0) g/dL RDW (12.0-15.0) % Plt Count (130-450) 10^3/uL MPV (7.4-11.4) fL Neut # (Auto) (1.5-6.6) 10^3/uL Lymph # (Auto) (1.5-3.5) 10^3/uL [place] # (Auto) (0.0-1.0) 10^3/uL Eos # (Auto) (0.0-0.7) 10^3/uL Baso # (Auto) (0.0-0.1) 10^3/uL Absolute Nucleated RBC x10^3/uL Nucleated RBC % /100WBC Sodium (135-145) mmol/L Potassium (3.5-4.5) mmol/L Chloride (101-111) mmol/L Carbon Dioxide (21-32) mmol/L Anion Gap (6-13) BUN (6-20) mg/dL Creatinine (0.6-1.3) mg/dL Estimated GFR (MDRD) (>89) Glucose (74-104) mg/dL POC Whole Bld Glucose 182 H (70 - 100) mg/dL Calcium (8.5-10.3) mg/dL Troponin I High Sens (2.3-19.7) ng/L Blood Type O POSITIVE Blood Type Recheck O POSITIVE Antibody Screen NEGATIVE Crossmatch IS Only See Detail 04/14/23 04/14/23 04/13/23 Range/Units 05:01 05:01 20:46 WBC 6.8 (4.8-10.8) x10^3/uL RBC 2.31 L (4.70-6.10) 10^6/uL Hgb 7.2 L (14.0-18.0) g/dL Hct 21.3 L (42.0-52.0) % MCV 92.2 (80.0-94.0) fL MCH 31.2 H (27.0-31.0) pg MCHC 33.8 (32.0-36.0) g/dL RDW 13.8 (12.0-15.0) % Plt Count 101 L (130-450) 10^3/uL MPV 10.1 (7.4-11.4) fL Neut # (Auto) 4.8 (1.5-6.6) 10^3/uL Lymph # (Auto) 1.1 L (1.5-3.5) 10^3/uL [place] # (Auto) 0.9 (0.0-1.0) 10^3/uL Eos # (Auto) 0.0 (0.0-0.7) 10^3/uL Baso # (Auto) 0.0 (0.0-0.1) 10^3/uL Absolute Nucleated RBC 0.00 x10^3/uL Nucleated RBC % 0.0 /100WBC Sodium 137 (135-145) mmol/L Potassium 4.2 (3.5-4.5) mmol/L Chloride 107 (101-111) mmol/L Carbon Dioxide 24 (21-32) mmol/L Anion Gap 6.0 (6-13) BUN 36 H (6-20) mg/dL Creatinine 1.1 (0.6-1.3) mg/dL Estimated GFR (MDRD) 64 L (>89) Glucose 194 H (74-104) mg/dL POC Whole Bld Glucose 279 H (70 - 100) mg/dL Calcium 8.3 L (8.5-10.3) mg/dL Troponin I High Sens (2.3-19.7) ng/L Blood Type Blood Type Recheck Antibody Screen Crossmatch IS Only 04/13/23 04/13/23 04/13/23 Range/Units 16:35 11:38 11:25 WBC (4.8-10.8) x10^3/uL RBC (4.70-6.10) 10^6/uL Hgb (14.0-18.0) g/dL Hct (42.0-52.0) % MCV (80.0-94.0) fL MCH (27.0-31.0) pg MCHC (32.0-36.0) g/dL RDW (12.0-15.0) % Plt Count (130-450) 10^3/uL MPV (7.4-11.4) fL Neut # (Auto) (1.5-6.6) 10^3/uL Lymph # (Auto) (1.5-3.5) 10^3/uL [place] # (Auto) (0.0-1.0) 10^3/uL Eos # (Auto) (0.0-0.7) 10^3/uL Baso # (Auto) (0.0-0.1) 10^3/uL Absolute Nucleated RBC x10^3/uL Nucleated RBC % /100WBC Sodium (135-145) mmol/L Potassium (3.5-4.5) mmol/L Chloride (101-111) mmol/L Carbon Dioxide (21-32) mmol/L Anion Gap (6-13) BUN (6-20) mg/dL Creatinine (0.6-1.3) mg/dL Estimated GFR (MDRD) (>89) Glucose (74-104) mg/dL POC Whole Bld Glucose 277 H 242 H (70 - 100) mg/dL Calcium (8.5-10.3) mg/dL Troponin I High Sens 10.7 (2.3-19.7) ng/L Blood Type Blood Type Recheck Antibody Screen Crossmatch IS Only 04/13/23 Range/Units 11:25 WBC (4.8-10.8) x10^3/uL RBC (4.70-6.10) 10^6/uL Hgb 8.8 L (14.0-18.0) g/dL Hct 26.7 L (42.0-52.0) % MCV (80.0-94.0) fL MCH (27.0-31.0) pg MCHC (32.0-36.0) g/dL RDW (12.0-15.0) % Plt Count (130-450) 10^3/uL MPV (7.4-11.4) fL Neut # (Auto) (1.5-6.6) 10^3/uL Lymph # (Auto) (1.5-3.5) 10^3/uL [place] # (Auto) (0.0-1.0) 10^3/uL Eos # (Auto) (0.0-0.7) 10^3/uL Baso # (Auto) (0.0-0.1) 10^3/uL Absolute Nucleated RBC x10^3/uL Nucleated RBC % /100WBC Sodium (135-145) mmol/L Potassium (3.5-4.5) mmol/L Chloride (101-111) mmol/L Carbon Dioxide (21-32) mmol/L Anion Gap (6-13) BUN (6-20) mg/dL Creatinine (0.6-1.3) mg/dL Estimated GFR (MDRD) (>89) Glucose (74-104) mg/dL POC Whole Bld Glucose (70 - 100) mg/dL Calcium (8.5-10.3) mg/dL Troponin I High Sens (2.3-19.7) ng/L Blood Type Blood Type Recheck Antibody Screen Crossmatch IS Only - Current Medications Current Medications: Current Medications Generic Name Dose Route Start Last Admin Trade Name Freq PRN Reason Stop Dose Admin Acetaminophen 650 mg 04/13/23 13:00 04/14/23 08:25 Acetaminophen 325 Mg Tablet PO Not Given Q4HR FREDERIC Atorvastatin Calcium 5 mg 04/12/23 21:00 04/13/23 20:52 Atorvastatin 10 Mg Tablet PO 5 mg QPM FREDERIC Administration Carvedilol 3.125 mg 04/12/23 09:00 04/14/23 08:25 Carvedilol 3.125 Mg Tablet PO 3.125 mg BID FREDERIC Administration Docusate Sodium 100 mg 04/12/23 18:02 04/14/23 08:24 Docusate Sodium 100 Mg Capsule PO 100 mg BID PRN Administration Constipation Insulin Glargine-yfgn 4 unit 04/13/23 21:00 04/13/23 20:54 Insulin Glargine-Yfgn 300 Unit/3 Ml Pen SUBQ 4 unit QPM FREDERIC Administration Insulin Human Lispro 2 - 10 unit 04/14/23 08:00 04/14/23 08:35 Insulin Lispro 300 Unit/3 Ml Pen SUBQ 4 unit 0800,1200,1700,2100 FREDERIC Administration Protocol Oxycodone HCl 5 mg 04/11/23 20:39 04/14/23 10:23 Oxycodone 5 Mg Tablet PO 5 mg Q4HR PRN Administration Pain 5 to 7 Polyethylene Glycol 17 gm 04/14/23 09:00 04/14/23 08:24 Polyethylene Glycol 3350 17 Gm Packet PO 17 gm DAILY FREDERIC Administration Prochlorperazine Edisylate 10 mg 04/12/23 19:43 04/12/23 19:54 Prochlorperazine 10 Mg/2 Ml Vial IVP 10 mg Q6HR PRN Administration Nausea / Vomiting Sodium Chloride 10 ml 04/12/23 01:00 04/14/23 08:31 Sodium Chloride Flush 0.9% 10 Ml Syringe IVP 10 ml 0100,0900,1700 FREDERIC Administration - Physical Exam Comments/Other: The left thigh has some swelling. The compartment to left thigh are not tight. There is minimal ecchymosis around the most proximal hip incision where the elder was inserted. His dressings are dry and intact, Mepilex dressings. His neurovascular is completely intact to left leg. Impression/Plan - Problem List Problem List: Intertrochanteric fracture left hip His hemoglobin has decreased to 7.2 today. He does not appear to be symptomatic. I do not detect any active blood loss about the hip surgical site although it is certainly reasonable to have blood loss about the fracture site, particularly associated with preoperative Plavix use. His vital signs appear to be stable. He does have a history of coronary artery disease and Dr. Beatty has ordered blood transfusion. We will continue to monitor for blood loss and monitor his hemoglobin level. I would continue his present postoperative recovery with physical therapy, ambulation with walker, weightbearing as tolerated left leg
--- NOTE | 2023-04-14 10:52 | PROVIDER PROGRESS NOTE ---
Subjective - General Admit Date: 04/11/23 Procedure Date: 04/12/23 Post Op Days: 3 Procedure Performed: Left hip open reduction internal fixation - Review of Systems Wound/Incisions: positive: Dressing dry and intact All Other Systems: positive: Reviewed and negative Objective - Patient Data Vital Signs: Vital Signs x48h Temp Pulse Resp BP BP Pulse Ox 04/14/23 10:28 36.1 C L 83 16 108/57 L 99 04/14/23 10:04 36.4 C L 90 124/71 96 04/14/23 07:50 36.7 C 78 18 131/73 H 100 04/14/23 05:00 36.4 C L 78 16 132/61 H 98 Weight: Weight 04/12/23 04/13/23 04/14/23 23:59 23:59 23:59 Weight (kg) 82.5 kg Intake & Output: Intake and Output Totals x24h 04/12/23 04/13/23 04/14/23 23:59 23:59 23:59 Intake Total 6919.700 0346.5 680 Output Total 1100 2525 875 Balance 45.417 1142.5 -195 - Lab Results Lab Results: 04/14/23 18:15 04/14/23 05:01 Other Lab Results: Lab Results x24hrs 04/14/23 04/14/23 04/14/23 Range/Units 08:10 07:43 05:01 WBC (4.8-10.8) x10^3/uL RBC (4.70-6.10) 10^6/uL Hgb (14.0-18.0) g/dL Hct (42.0-52.0) % MCV (80.0-94.0) fL MCH (27.0-31.0) pg MCHC (32.0-36.0) g/dL RDW (12.0-15.0) % Plt Count (130-450) 10^3/uL MPV (7.4-11.4) fL Neut # (Auto) (1.5-6.6) 10^3/uL Lymph # (Auto) (1.5-3.5) 10^3/uL Dickens # (Auto) (0.0-1.0) 10^3/uL Eos # (Auto) (0.0-0.7) 10^3/uL Baso # (Auto) (0.0-0.1) 10^3/uL Absolute Nucleated RBC x10^3/uL Nucleated RBC % /100WBC Sodium (135-145) mmol/L Potassium (3.5-4.5) mmol/L Chloride (101-111) mmol/L Carbon Dioxide (21-32) mmol/L Anion Gap (6-13) BUN (6-20) mg/dL Creatinine (0.6-1.3) mg/dL Estimated GFR (MDRD) (>89) Glucose (74-104) mg/dL POC Whole Bld Glucose 182 H (70 - 100) mg/dL Calcium (8.5-10.3) mg/dL Troponin I High Sens (2.3-19.7) ng/L Blood Type O POSITIVE Blood Type Recheck O POSITIVE Antibody Screen NEGATIVE Crossmatch IS Only See Detail 04/14/23 04/14/23 04/13/23 Range/Units 05:01 05:01 20:46 WBC 6.8 (4.8-10.8) x10^3/uL RBC 2.31 L (4.70-6.10) 10^6/uL Hgb 7.2 L (14.0-18.0) g/dL Hct 21.3 L (42.0-52.0) % MCV 92.2 (80.0-94.0) fL MCH 31.2 H (27.0-31.0) pg MCHC 33.8 (32.0-36.0) g/dL RDW 13.8 (12.0-15.0) % Plt Count 101 L (130-450) 10^3/uL MPV 10.1 (7.4-11.4) fL Neut # (Auto) 4.8 (1.5-6.6) 10^3/uL Lymph # (Auto) 1.1 L (1.5-3.5) 10^3/uL Dickens # (Auto) 0.9 (0.0-1.0) 10^3/uL Eos # (Auto) 0.0 (0.0-0.7) 10^3/uL Baso # (Auto) 0.0 (0.0-0.1) 10^3/uL Absolute Nucleated RBC 0.00 x10^3/uL Nucleated RBC % 0.0 /100WBC Sodium 137 (135-145) mmol/L Potassium 4.2 (3.5-4.5) mmol/L Chloride 107 (101-111) mmol/L Carbon Dioxide 24 (21-32) mmol/L Anion Gap 6.0 (6-13) BUN 36 H (6-20) mg/dL Creatinine 1.1 (0.6-1.3) mg/dL Estimated GFR (MDRD) 64 L (>89) Glucose 194 H (74-104) mg/dL POC Whole Bld Glucose 279 H (70 - 100) mg/dL Calcium 8.3 L (8.5-10.3) mg/dL Troponin I High Sens (2.3-19.7) ng/L Blood Type Blood Type Recheck Antibody Screen Crossmatch IS Only 04/13/23 04/13/23 04/13/23 Range/Units 16:35 11:38 11:25 WBC (4.8-10.8) x10^3/uL RBC (4.70-6.10) 10^6/uL Hgb (14.0-18.0) g/dL Hct (42.0-52.0) % MCV (80.0-94.0) fL MCH (27.0-31.0) pg MCHC (32.0-36.0) g/dL RDW (12.0-15.0) % Plt Count (130-450) 10^3/uL MPV (7.4-11.4) fL Neut # (Auto) (1.5-6.6) 10^3/uL Lymph # (Auto) (1.5-3.5) 10^3/uL Dickens # (Auto) (0.0-1.0) 10^3/uL Eos # (Auto) (0.0-0.7) 10^3/uL Baso # (Auto) (0.0-0.1) 10^3/uL Absolute Nucleated RBC x10^3/uL Nucleated RBC % /100WBC Sodium (135-145) mmol/L Potassium (3.5-4.5) mmol/L Chloride (101-111) mmol/L Carbon Dioxide (21-32) mmol/L Anion Gap (6-13) BUN (6-20) mg/dL Creatinine (0.6-1.3) mg/dL Estimated GFR (MDRD) (>89) Glucose (74-104) mg/dL POC Whole Bld Glucose 277 H 242 H (70 - 100) mg/dL Calcium (8.5-10.3) mg/dL Troponin I High Sens 10.7 (2.3-19.7) ng/L Blood Type Blood Type Recheck Antibody Screen Crossmatch IS Only 04/13/23 Range/Units 11:25 WBC (4.8-10.8) x10^3/uL RBC (4.70-6.10) 10^6/uL Hgb 8.8 L (14.0-18.0) g/dL Hct 26.7 L (42.0-52.0) % MCV (80.0-94.0) fL MCH (27.0-31.0) pg MCHC (32.0-36.0) g/dL RDW (12.0-15.0) % Plt Count (130-450) 10^3/uL MPV (7.4-11.4) fL Neut # (Auto) (1.5-6.6) 10^3/uL Lymph # (Auto) (1.5-3.5) 10^3/uL Dickens # (Auto) (0.0-1.0) 10^3/uL Eos # (Auto) (0.0-0.7) 10^3/uL Baso # (Auto) (0.0-0.1) 10^3/uL Absolute Nucleated RBC x10^3/uL Nucleated RBC % /100WBC Sodium (135-145) mmol/L Potassium (3.5-4.5) mmol/L Chloride (101-111) mmol/L Carbon Dioxide (21-32) mmol/L Anion Gap (6-13) BUN (6-20) mg/dL Creatinine (0.6-1.3) mg/dL Estimated GFR (MDRD) (>89) Glucose (74-104) mg/dL POC Whole Bld Glucose (70 - 100) mg/dL Calcium (8.5-10.3) mg/dL Troponin I High Sens (2.3-19.7) ng/L Blood Type Blood Type Recheck Antibody Screen Crossmatch IS Only - Current Medications Current Medications: Current Medications Generic Name Dose Route Start Last Admin Trade Name Freq PRN Reason Stop Dose Admin Acetaminophen 650 mg 04/13/23 13:00 04/14/23 08:25 Acetaminophen 325 Mg Tablet PO Not Given Q4HR [facility] Atorvastatin Calcium 5 mg 04/12/23 21:00 04/13/23 20:52 Atorvastatin 10 Mg Tablet PO 5 mg QPM FREDERIC Administration Carvedilol 3.125 mg 04/12/23 09:00 04/14/23 08:25 Carvedilol 3.125 Mg Tablet PO 3.125 mg BID FREDERIC Administration Docusate Sodium 100 mg 04/12/23 18:02 04/14/23 08:24 Docusate Sodium 100 Mg Capsule PO 100 mg BID PRN Administration Constipation Insulin Glargine-yfgn 4 unit 04/13/23 21:00 04/13/23 20:54 Insulin Glargine-Yfgn 300 Unit/3 Ml Pen SUBQ 4 unit QPM FREDERIC Administration Insulin Human Lispro 2 - 10 unit 04/14/23 08:00 04/14/23 08:35 Insulin Lispro 300 Unit/3 Ml Pen SUBQ 4 unit 0800,1200,1700,2100 [facility] Administration Protocol Oxycodone HCl 5 mg 04/11/23 20:39 04/14/23 10:23 Oxycodone 5 Mg Tablet PO 5 mg Q4HR PRN Administration Pain 5 to 7 Polyethylene Glycol 17 gm 04/14/23 09:00 04/14/23 08:24 Polyethylene Glycol 3350 17 Gm Packet PO 17 gm DAILY FREDERIC Administration Prochlorperazine Edisylate 10 mg 04/12/23 19:43 04/12/23 19:54 Prochlorperazine 10 Mg/2 Ml Vial IVP 10 mg Q6HR PRN Administration Nausea / Vomiting Sodium Chloride 10 ml 04/12/23 01:00 04/14/23 08:31 Sodium Chloride Flush 0.9% 10 Ml Syringe IVP 10 ml 0100,0900,1700 [facility] Administration - Physical Exam Comments/Other: The left thigh shows mild to moderate swelling, no sign of compartment syndrome. The dressings are clean and dry. There is mild ecchymosis about the proximal incision about the lateral left hip. His neurovascular is intact. There is no clinical deformity Impression/Plan - Problem List Problem List: Intertrochanteric fracture left hip, status post open reduction internal fixation with intramedullary integrated hip screw. He has hemoglobin of 7.2, has been on Plavix prior to admission. He appears to be stable and there is no sign of active bleeding about the operative site. With his history of coronary artery disease and age greater than 80, and a blood transfusion has been ordered by the hospitalist, Dr. Beatty. Continue present treatment with use of walker, weightbearing as tolerated on left leg.
--- NOTE | 2023-04-14 16:37 | XRAY Report ---
PROCEDURE: OR C-Arm Procedure INDICATIONS: Left Hip Nailing FLUORO TIME: 1.15 TECHNIQUE: Intraoperative view. COMPARISON: X-ray hip 04/11/2023 FINDINGS: Intraoperative fluoroscopic image demonstrates fixation of the left intertrochanteric fracture. There is relatively good anatomic alignment. Hardware is intact. IMPRESSION: Intraoperative left intertrochanteric fracture fixation. Reviewed by: Griselda Clay MD on 04/14/2023 4:36 PM PDT Approved by: Griselda Clay MD on 04/14/2023 4:36 PM PDT Station ID: [id number]
[2023-04-14 18:19] LABS: HGB - HEMOGLOBIN 9.3 g/dL (14.0-18.0)
[2023-04-14] MEDS ORDERED: INSULIN GLARGINE-YFGN 300 UNIT/3 ML PEN SUBQ SCH (21:00)
[2023-04-14] MEDS: SENNA 8.6 MG TABLET PO SCH (21:28)
[2023-04-14] MEDS: ATORVASTATIN 10 MG TABLET PO SCH (21:28)
[2023-04-15] MEDS: SODIUM CHLORIDE FLUSH 0.9% 10 ML SYRINGE IVP SCH ×4 (00:33→23:59)
[2023-04-15] MEDS: ACETAMINOPHEN 325 MG TABLET PO SCH ×4 (00:33→12:36)
[2023-04-15] MEDS: oxyCODONE 5 MG TABLET PO PRN ×4 (03:29→21:34)
[2023-04-15] MEDS: SENNA 8.6 MG TABLET PO SCH ×3 (05:02→16:10)
[2023-04-15] MEDS: carvediloL 3.125 MG TABLET PO SCH ×2 (08:08→20:46)
[2023-04-15] MEDS: INSULIN LISPRO 300 UNIT/3 ML PEN SUBQ SCH ×6 (08:08→20:47)
[2023-04-15] MEDS: polyethylene glycoL 3350 17 GM PACKET PO SCH (08:09)
--- NOTE | 2023-04-15 08:33 | PROVIDER PROGRESS NOTE ---
Assessment/Plan - Problem List (1) Acute anemia Assessment/Plan: Improved, hemoglobin went up to 9.3 up properly after the 2 units of blood transfusion Continue monitoring H&H (2) SRAVANTHI (acute kidney injury) Assessment/Plan: Resolved Creatinine 1, back to his baseline Encourage oral intake (4) CAD (coronary artery disease) Assessment/Plan: Stable, If hemoglobin still stable 24 hours after the transfusion, may consider to r esume Plavix Observe hemoglobin after Plavix challenge (5) Diabetic acidosis, type II Assessment/Plan: Hyperglycemia, blood glucose about 200s even after the just glargine's dose. Increase glargine dose, add on meal coverage (6) HTN (hypertension) Assessment/Plan: Stable, in good range Continue current regimen (7) HLD (hyperlipidemia) Assessment/Plan: Continue statin - Current Meds Current Meds: Current Medications Generic Name Dose Route Start Last Admin Trade Name Freq PRN Reason Stop Dose Admin Acetaminophen 650 mg 04/13/23 13:00 04/15/23 08:07 Acetaminophen 325 Mg Tablet PO 650 mg Q4HR [facility]ERIC Administration Atorvastatin Calcium 5 mg 04/12/23 21:00 04/14/23 21:28 Atorvastatin 10 Mg Tablet PO 5 mg QPM [facility]ERIC Administration Carvedilol 3.125 mg 04/12/23 09:00 04/15/23 08:08 Carvedilol 3.125 Mg Tablet PO 3.125 mg BID FREDERIC Administration Docusate Sodium 100 mg 04/12/23 18:02 04/14/23 21:29 Docusate Sodium 100 Mg Capsule PO 100 mg BID PRN Administration Constipation Insulin Human Lispro 2 - 10 unit 04/14/23 08:00 04/15/23 08:08 Insulin Lispro 300 Unit/3 Ml Pen SUBQ 4 unit 0800,1200,1700,2100 [facility]IC Administration Protocol Oxycodone HCl 5 mg 04/11/23 20:39 04/15/23 03:29 Oxycodone 5 Mg Tablet PO 5 mg Q4HR PRN Administration Pain 5 to 7 Polyethylene Glycol 17 gm 04/14/23 09:00 04/15/23 08:09 Polyethylene Glycol 3350 17 Gm Packet PO 17 gm DAILY [facility]ERIC Administration Prochlorperazine Edisylate 10 mg 04/12/23 19:43 04/12/23 19:54 Prochlorperazine 10 Mg/2 Ml Vial IVP 10 mg Q6HR PRN Administration Nausea / Vomiting Senna 17.2 - 25.8 mg 04/14/23 22:00 04/15/23 05:02 Senna 8.6 Mg Tablet PO 04/15/23 16:01 17.2 mg Q6H FREDERIC Administration Sodium Chloride 10 ml 04/12/23 01:00 04/15/23 08:09 Sodium Chloride Flush 0.9% 10 Ml Syringe IVP 10 ml 0100,0900,1700 [facility]IC Administration - Lab Result Lab results reviewed: Yes Fish Bone Diagrams: 04/14/23 18:15 04/14/23 05:01 - Diagnostic Imaging Results Diagnostic Imaging Results: Final report reviewed - Additional Planning Condition/Complexity: Improved My Orders: My Active Orders 04/14/23 07:53 Transfuse RBCs Leukoreduced [RC] .ONCE 04/15/23 12:00 Insulin Lispro [Humalog Kwikpen U-100] 4 unit SUBQ TIDWM 04/15/23 21:00 Insulin Glargine-Yfgn [Semglee] 8 unit SUBQ QPM Plan Discussed with:: Patient Time Spent: 15-30 minutes Subjective - Subjective Patient Reports: Feeling Better (Able to walk to the bathroom, feels stronger and better) Objective Vital Signs: Vital Signs - 24 hr 04/14/23 04/14/23 04/14/23 10:04 10:28 11:24 Temperature 36.4 C L 36.1 C L 36.6 C Heart Rate [ 90 83 74 Brachial] Respiratory 16 18 Rate Blood Pressure [Left Brachial artery] Blood Pressure 124/71 108/57 L 123/56 L [Right Brachial artery] O2 Saturation 96 99 100 If not protocol : Oxygen Flow, liters/minute 04/14/23 04/14/23 04/14/23 12:49 13:36 14:08 Temperature 36.6 C 36.5 C 36.6 C Heart Rate [ 85 88 74 Brachial] Respiratory 18 16 16 Rate Blood Pressure [Left Brachial artery] Blood Pressure 133/64 H 128/60 126/56 L [Right Brachial artery] O2 Saturation 100 99 98 If not protocol : Oxygen Flow, liters/minute 04/14/23 04/14/23 04/14/23 14:29 16:17 17:26 Temperature 36.6 C 37.0 C 36.5 C Heart Rate [ 76 77 72 Brachial] Respiratory 16 20 18 Rate Blood Pressure 124/60 [Left Brachial artery] Blood Pressure 129/53 L 135/87 H [Right Brachial artery] O2 Saturation 98 100 96 If not protocol : Oxygen Flow, liters/minute 04/14/23 04/15/23 04/15/23 21:00 00:34 05:07 Temperature 36.5 C 36.4 C L 36.7 C Heart Rate [ 78 74 76 Brachial] Respiratory 18 20 20 Rate Blood Pressure [Left Brachial artery] Blood Pressure 145/79 H 156/92 H 114/74 [Right Brachial artery] O2 Saturation 99 96 If not protocol 94 : Oxygen Flow, liters/minute 04/15/23 07:47 Temperature 36.8 C Heart Rate [ 70 Brachial] Respiratory 20 Rate Blood Pressure [Left Brachial artery] Blood Pressure 152/72 H [Right Brachial artery] O2 Saturation 96 If not protocol : Oxygen Flow, liters/minute Oxygen O2 Source Room air I&O (Last 24 Hrs): Intake and Output Totals x24h 04/13/23 04/14/23 04/15/23 23:59 23:59 23:59 Intake Total 3667.5 2788 818 Output Total 2525 3275 950 Balance 1142.5 -487 -132 General: Alert, Oriented x3 HEENT: PERRLA, EOMI Neck: Supple, No JVD Neuro: Alert, CN 2-12 Grossly Intact Cardiovascular: Regular rate Abdomen: Soft, No tenderness Extremities: No edema - Results Results: Laboratory Results WBC 6.8 x10^3/uL (4.8-10.8) 04/14/23 05:01 RBC 2.31 10^6/uL (4.70-6.10) L 04/14/23 05:01 Hgb 9.3 g/dL (14.0-18.0) L 04/14/23 18:15 Hct 28.0 % (42.0-52.0) L 04/14/23 18:15 MCV 92.2 fL (80.0-94.0) 04/14/23 05:01 MCH 31.2 pg (27.0-31.0) H 04/14/23 05:01 MCHC 33.8 g/dL (32.0-36.0) 04/14/23 05:01 RDW 13.8 % (12.0-15.0) 04/14/23 05:01 Plt Count 101 10^3/uL (130-450) L 04/14/23 05:01 MPV 10.1 fL (7.4-11.4) 04/14/23 05:01 Neut # (Auto) 4.8 10^3/uL (1.5-6.6) 04/14/23 05:01 Lymph # (Auto) 1.1 10^3/uL (1.5-3.5) L 04/14/23 05:01 Long # (Auto) 0.9 10^3/uL (0.0-1.0) 04/14/23 05:01 Eos # (Auto) 0.0 10^3/uL (0.0-0.7) 04/14/23 05:01 Baso # (Auto) 0.0 10^3/uL (0.0-0.1) 04/14/23 05:01 Absolute Nucleated RBC 0.00 x10^3/uL 04/14/23 05:01 Nucleated RBC % 0.0 /100WBC 04/14/23 05:01 PT 11.5 secs (9.9-12.6) 04/11/23 18:14 INR 1.1 (0.8-1.2) 04/11/23 18:14 APTT 27.8 secs (24.9-33.3) 04/11/23 18:14 Sodium 137 mmol/L (135-145) 04/14/23 05:01 Potassium 4.2 mmol/L (3.5-4.5) 04/14/23 05:01 Chloride 107 mmol/L (101-111) 04/14/23 05:01 Carbon Dioxide 24 mmol/L (21-32) 04/14/23 05:01 Anion Gap 6.0 (6-13) 04/14/23 05:01 BUN 36 mg/dL (6-20) H 04/14/23 05:01 Creatinine 1.1 mg/dL (0.6-1.3) 04/14/23 05:01 Estimated GFR (MDRD) 64 (>89) L 04/14/23 05:01 Glucose 194 mg/dL (74-104) H 04/14/23 05:01 POC Whole Bld Glucose 215 mg/dL (70 - 100) H 04/15/23 07:50 Estimat Average Glucose 186 mg/dL (70-100) H 04/12/23 05:27 Hemoglobin A1c % 8.1 % (4.27-6.07) H 04/12/23 05:27 Calcium 8.3 mg/dL (8.5-10.3) L 04/14/23 05:01 Magnesium 1.9 mg/dL (1.7-2.3) 04/11/23 18:14 Total Bilirubin 0.6 mg/dL (0.2-1.0) 04/11/23 18:14 AST 15 IU/L (10-42) 04/11/23 18:14 ALT 16 IU/L (10-60) 04/11/23 18:14 Alkaline Phosphatase 77 IU/L (42-121) 04/11/23 18:14 Troponin I High Sens 10.7 ng/L (2.3-19.7) 04/13/23 11:25 Total Protein 7.9 g/dL (6.4-8.9) 04/11/23 18:14 Albumin 5.1 g/dL (3.2-5.5) 04/11/23 18:14 Globulin 2.8 g/dL (2.1-4.2) 04/11/23 18:14 Albumin/Globulin Ratio 1.8 (1.0-2.2) 04/11/23 18:14 Lipase < 10 U/L (11-82) L 04/11/23 18:14 Urine Color YELLOW 04/11/23 22:45 Urine Clarity CLEAR (CLEAR) 04/11/23 22:45 Urine pH 5.5 PH (5.0-7.5) 04/11/23 22:45 Ur Specific [place] 1.020 (1.002-1.030) 04/11/23 22:45 Urine Protein NEGATIVE mg/dL (NEGATIVE) 04/11/23 22:45 Urine Glucose (UA) >=1000 mg/dL (NEGATIVE) H 04/11/23 22:45 Urine Ketones 15 mg/dL (NEGATIVE) H 04/11/23 22:45 Urine Occult Blood NEGATIVE (NEGATIVE) 04/11/23 22:45 Urine Nitrite NEGATIVE (NEGATIVE) 04/11/23 22:45 Urine Bilirubin NEGATIVE (NEGATIVE) 04/11/23 22:45 Urine Urobilinogen 0.2 (NORMAL) E.U./dL (NORMAL) 04/11/23 22:45 Ur Leukocyte Esterase NEGATIVE (NEGATIVE) 04/11/23 22:45 Ur Microscopic Review NOT INDICATED 04/11/23 22:45 Urine Culture Comments NOT INDICATED 04/11/23 22:45 Blood Type O POSITIVE 04/14/23 08:10 Blood Type Recheck O POSITIVE 04/14/23 05:01 Antibody Screen NEGATIVE 04/14/23 08:10 Crossmatch IS Only See Detail 04/14/23 08:10 Sepsis Event Note (H) - Evaluation Current Stage of Sepsis: Ruled out ABX Reporting Has patient been on IV antibiotics over the past 48 hours?: No Current Medications - Current Medications Current Medications: Active Medications Acetaminophen (Acetaminophen 325 Mg Tablet) 650 mg PO Q4HR PRN PRN Reason: pain Atorvastatin Calcium (Atorvastatin 10 Mg Tablet) 5 mg PO QPM [facility] Last Admin: 04/14/23 21:28 Dose: 5 mg Carvedilol (Carvedilol 3.125 Mg Tablet) 3.125 mg PO BID [facility] Last Admin: 04/15/23 08:08 Dose: 3.125 mg Docusate Sodium (Docusate Sodium 100 Mg Capsule) 100 mg PO BID PRN PRN Reason: Constipation Last Admin: 04/14/23 21:29 Dose: 100 mg Hydralazine HCl (Hydralazine 10 Mg Tablet) 10 mg PO Q6H PRN PRN Reason: Blood Pressure Insulin Glargine-yfgn (Insulin Glargine-Yfgn 300 Unit/3 Ml Pen) 8 unit SUBQ QPM [facility] Insulin Human Lispro (Insulin Lispro 300 Unit/3 Ml Pen) 2 - 10 unit SUBQ 0800,1200,1700,2100 [facility]; Protocol Last Admin: 04/15/23 11:49 Dose: 6 unit Insulin Human Lispro (Insulin Lispro 300 Unit/3 Ml Pen) 4 unit SUBQ TIDWM [facility] Last Admin: 04/15/23 11:49 Dose: 4 unit Morphine Sulfate (Morphine 2 Mg/Ml Carpuject) 2 mg IVP Q4HR PRN PRN Reason: Pain 8 to 10 Ondansetron HCl (Ondansetron Odt 4 Mg Tablet) 4 mg TL Q6HR PRN PRN Reason: Nausea / Vomiting Ondansetron HCl (Ondansetron 4 Mg/2 Ml Vial) 4 mg IVP Q6HR PRN PRN Reason: Nausea / Vomiting Oxycodone HCl (Oxycodone 5 Mg Tablet) 5 mg PO Q4HR PRN PRN Reason: Pain 5 to 7 Last Admin: 04/15/23 10:53 Dose: 5 mg Polyethylene Glycol (Polyethylene Glycol 3350 17 Gm Packet) 17 gm PO DAILY [facility] Last Admin: 04/15/23 08:09 Dose: 17 gm Prochlorperazine Edisylate (Prochlorperazine 10 Mg/2 Ml Vial) 10 mg IVP Q6HR PRN PRN Reason: Nausea / Vomiting Last Admin: 04/12/23 19:54 Dose: 10 mg Sodium Chloride (Sodium Chloride Flush 0.9% 10 Ml Syringe) 10 ml IVP PRN PRN PRN Reason: NEEDED PER PROVIDER ORDERS Sodium Chloride (Sodium Chloride Flush 0.9% 10 Ml Syringe) 10 ml IVP 0100,0900,1700 [facility] Last Admin: 04/15/23 08:09 Dose: 10 ml Clopidogrel [Plavix] 75 mg PO DAILY 04/11/23 Empagliflozin [Jardiance] 25 mg PO DAILY 04/11/23 Losartan [Cozaar] 50 mg PO DAILY 04/11/23 Rosuvastatin Calcium [Crestor] 2.5 mg PO QPM 04/11/23 carvediloL [Coreg] 3.125 mg PO BID 04/11/23 Sitagliptin Phos/Metformin HCl [Janumet Xr 50-1,000 mg Tablet] 1 tab PO DAILY 04/12/23
--- NOTE | 2023-04-15 11:28 | PROVIDER PROGRESS NOTE ---
Subjective - General Admit Date: 04/11/23 Procedure Date: 04/12/23 Post Op Days: 3 Procedure Performed: Left hip open reduction internal fixation - Review of Systems Wound/Incisions: positive: Dressing dry and intact All Other Systems: positive: Reviewed and negative - Other Other Information/Narrative: Patient reports that he is doing better, slightly less pain to left hip. He is making progress with physical therapy and ambulation. He does not have any neurologic or vascular symptoms to left leg. He denies chest pain or shortness of breath Objective - Patient Data Vital Signs: Vital Signs x48h Temp Pulse Resp BP Pulse Ox 04/15/23 07:47 36.8 C 70 20 152/72 H 96 04/15/23 05:07 36.7 C 76 20 114/74 96 Intake & Output: Intake and Output Totals x24h 04/13/23 04/14/23 04/15/23 23:59 23:59 23:59 Intake Total 3667.5 2788 1298 Output Total 2525 3275 950 Balance 1142.5 -487 348 - Lab Results Lab Results: 04/14/23 18:15 04/14/23 05:01 Other Lab Results: Lab Results x24hrs 04/15/23 04/15/23 04/14/23 Range/Units 11:22 07:50 21:26 Hgb (14.0-18.0) g/dL Hct (42.0-52.0) % POC Whole Bld Glucose 261 H 215 H 280 H (70 - 100) mg/dL Blood Type Antibody Screen Crossmatch IS Only 04/14/23 04/14/23 04/14/23 Range/Units 18:15 16:55 08:10 Hgb 9.3 L (14.0-18.0) g/dL Hct 28.0 L (42.0-52.0) % POC Whole Bld Glucose 223 H (70 - 100) mg/dL Blood Type O POSITIVE Antibody Screen NEGATIVE Crossmatch IS Only See Detail - Current Medications Current Medications: Current Medications Generic Name Dose Route Start Last Admin Trade Name Freq PRN Reason Stop Dose Admin Acetaminophen 650 mg 04/13/23 13:00 04/15/23 08:07 Acetaminophen 325 Mg Tablet PO 650 mg Q4HR [facility] Administration Atorvastatin Calcium 5 mg 04/12/23 21:00 04/14/23 21:28 Atorvastatin 10 Mg Tablet PO 5 mg QPM [facility] Administration Carvedilol 3.125 mg 04/12/23 09:00 04/15/23 08:08 Carvedilol 3.125 Mg Tablet PO 3.125 mg BID [facility] Administration Docusate Sodium 100 mg 04/12/23 18:02 04/14/23 21:29 Docusate Sodium 100 Mg Capsule PO 100 mg BID PRN Administration Constipation Insulin Human Lispro 2 - 10 unit 04/14/23 08:00 04/15/23 08:08 Insulin Lispro 300 Unit/3 Ml Pen SUBQ 4 unit 0800,1200,1700,2100 [facility] Administration Protocol Oxycodone HCl 5 mg 04/11/23 20:39 04/15/23 10:53 Oxycodone 5 Mg Tablet PO 5 mg Q4HR PRN Administration Pain 5 to 7 Polyethylene Glycol 17 gm 04/14/23 09:00 04/15/23 08:09 Polyethylene Glycol 3350 17 Gm Packet PO 17 gm DAILY [facility] Administration Prochlorperazine Edisylate 10 mg 04/12/23 19:43 04/12/23 19:54 Prochlorperazine 10 Mg/2 Ml Vial IVP 10 mg Q6HR PRN Administration Nausea / Vomiting Senna 17.2 - 25.8 mg 04/14/23 22:00 04/15/23 10:07 Senna 8.6 Mg Tablet PO 04/15/23 16:01 17.2 mg Q6H [facility]IC Administration Sodium Chloride 10 ml 04/12/23 01:00 04/15/23 08:09 Sodium Chloride Flush 0.9% 10 Ml Syringe IVP 10 ml 0100,0900,1700 [facility] Administration - Physical Exam Neurologic/Psychiatric: positive: Oriented x3 Comments/Other: There is slightly less swelling to left thigh. Dressings are clean and dry. Small area of ecchymosis over the proximal lateral incision has not increased. Neurovascular is intact to left leg. Impression/Plan - Problem List Problem List: Intertrochanteric fracture left hip He is hemoglobin has increased since transfusion. His vital signs are stable. His blood sugars are elevated. Plan: Continue physical therapy and Occupational Therapy, medical support from Dr. Beatty, hospitalist for his comorbidities
[2023-04-15 16:55] LABS: HCT - HEMATOCRIT 30.4 % (42.0-52.0); MEAN CORPUSCULAR HEMOGLOBIN 30.1 pg (27.0-31.0); MEAN CORPUSCULAR HGB CONC 32.9 g/dL (32.0-36.0); MEAN CORPUSCULAR VOLUME 91.6 fL (80.0-94.0); MEAN PLATELET VOLUME 9.6 fL (7.4-11.4); RED BLOOD COUNT 3.32 10^6/uL (4.70-6.10); RED CELL DISTRIBUTION WIDTH 14.2 % (12.0-15.0); WHITE BLOOD COUNT 6.7 x10^3/uL (4.8-10.8)
[2023-04-15] MEDS: ATORVASTATIN 10 MG TABLET PO SCH (20:44)
[2023-04-15] MEDS: DOCUSATE SODIUM 100 MG CAPSULE PO PRN (20:45)
[2023-04-15] MEDS ORDERED: INSULIN GLARGINE-YFGN 300 UNIT/3 ML PEN SUBQ SCH (21:00)
[2023-04-15] MEDS: ACETAMINOPHEN 325 MG TABLET PO PRN (23:58)
[2023-04-16] MEDS: oxyCODONE 5 MG TABLET PO PRN ×4 (01:35→19:23)
[2023-04-16 05:08] LABS: BASOPHILS % (AUTO) 0.5 %; EOSINOPHILS # (AUTO) 0.2 10^3/uL (0.0-0.7); EOSINOPHILS % (AUTO) 2.4 %; HCT - HEMATOCRIT 29.7 % (42.0-52.0); HGB - HEMOGLOBIN 9.6 g/dL (14.0-18.0); LYMPHOCYTES # (AUTO) 1.5 10^3/uL (1.5-3.5); MEAN CORPUSCULAR HEMOGLOBIN 30.3 pg (27.0-31.0); MEAN CORPUSCULAR HGB CONC 32.3 g/dL (32.0-36.0); MEAN CORPUSCULAR VOLUME 93.7 fL (80.0-94.0); MEAN PLATELET VOLUME 10.1 fL (7.4-11.4); MONOCYTES # (AUTO) 0.8 10^3/uL (0.0-1.0); NEUTROPHILS # (AUTO) 3.9 10^3/uL (1.5-6.6); NEUTROPHILS % (AUTO) 61.8 %; PLT - PLATELET COUNT 138 10^3/uL (130-450); RED BLOOD COUNT 3.17 10^6/uL (4.70-6.10); RED CELL DISTRIBUTION WIDTH 13.9 % (12.0-15.0); WHITE BLOOD COUNT 6.3 x10^3/uL (4.8-10.8)
[2023-04-16 05:49] LABS: CALCIUM 8.7 mg/dL (8.5-10.3); CREATININE 0.8 mg/dL (0.6-1.3); POTASSIUM 4.4 mmol/L (3.5-4.5)
--- NOTE | 2023-04-16 07:18 | PROVIDER PROGRESS NOTE ---
Assessment/Plan - Problem List (1) Acute anemia Assessment/Plan: Stable, hemoglobin improved to 9.2, 10 Today is 9.6 Resume Plavix today, monitoring hemoglobin (2) SRAVANTHI (acute kidney injury) Assessment/Plan: Resolved Restart losartan for blood pressure control (3) Fracture, intertrochanteric, left femur Assessment/Plan: Continue improving Able to walk to the bathroom without difficulty (4) CAD (coronary artery disease) Assessment/Plan: Stable Resume Plavix today (5) Diabetic acidosis, type II Assessment/Plan: Not very well controlled, fasting glucose 203 Increase basal insulin, increase meal coverage Continue DM diet (6) HTN (hypertension) Assessment/Plan: Blood pressure 140/80, to optimize BP resume losartan today (7) HLD (hyperlipidemia) Assessment/Plan: Continue statin - Current Meds Current Meds: Current Medications Generic Name Dose Route Start Last Admin Trade Name Freq PRN Reason Stop Dose Admin Acetaminophen 650 mg 04/15/23 12:51 04/15/23 23:58 Acetaminophen 325 Mg Tablet PO 650 mg Q4HR PRN Administration pain Atorvastatin Calcium 5 mg 04/12/23 21:00 04/15/23 20:44 Atorvastatin 10 Mg Tablet PO 5 mg QPM [facility] Administration Carvedilol 3.125 mg 04/12/23 09:00 04/15/23 20:46 Carvedilol 3.125 Mg Tablet PO 3.125 mg BID [facility] Administration Docusate Sodium 100 mg 04/12/23 18:02 04/15/23 20:45 Docusate Sodium 100 Mg Capsule PO 100 mg BID PRN Administration Constipation Insulin Human Lispro 2 - 10 unit 04/14/23 08:00 04/15/23 20:47 Insulin Lispro 300 Unit/3 Ml Pen SUBQ 6 unit 0800,1200,1700,2100 [facility] Administration Protocol Oxycodone HCl 5 mg 04/11/23 20:39 04/16/23 01:35 Oxycodone 5 Mg Tablet PO 5 mg Q4HR PRN Administration Pain 5 to 7 Polyethylene Glycol 17 gm 04/14/23 09:00 04/15/23 08:09 Polyethylene Glycol 3350 17 Gm Packet PO 17 gm DAILY [facility] Administration Prochlorperazine Edisylate 10 mg 04/12/23 19:43 04/12/23 19:54 Prochlorperazine 10 Mg/2 Ml Vial IVP 10 mg Q6HR PRN Administration Nausea / Vomiting Sodium Chloride 10 ml 04/12/23 01:00 04/15/23 23:59 Sodium Chloride Flush 0.9% 10 Ml Syringe IVP 10 ml 0100,0900,1700 [facility] Administration - Lab Result Fish Bone Diagrams: 04/16/23 04:19 04/16/23 04:19 - Additional Planning Condition/Complexity: Improved My Orders: My Active Orders 04/15/23 12:51 Acetaminophen [Tylenol] 650 mg PO Q4HR PRN 04/16/23 08:00 Insulin Lispro [Humalog Kwikpen U-100] 6 unit SUBQ TIDWM 04/16/23 09:00 Clopidogrel [Plavix] 75 mg PO DAILY Losartan [Cozaar] 50 mg PO DAILY 04/16/23 21:00 Insulin Glargine-Yfgn [Semglee] 10 unit SUBQ QPM 04/17/23 05:00 BMP - BASIC METABOLIC PANEL [CHEM] DAILYLAB CBC [CBC - COMP BLD CT W/AUTO DIFF] [HEME] DAILYLAB 04/18/23 05:00 BMP - BASIC METABOLIC PANEL [CHEM] DAILYLAB CBC [CBC - COMP BLD CT W/AUTO DIFF] [HEME] DAILYLAB 04/19/23 05:00 BMP - BASIC METABOLIC PANEL [CHEM] DAILYLAB CBC [CBC - COMP BLD CT W/AUTO DIFF] [HEME] DAILYLAB 04/20/23 05:00 BMP - BASIC METABOLIC PANEL [CHEM] DAILYLAB CBC [CBC - COMP BLD CT W/AUTO DIFF] [HEME] DAILYLAB Plan Discussed with:: Patient Time Spent: Less than 15 minutes Subjective - Subjective Patient Reports: Feeling Better, Pain (Still has leg pain, but has been improved Patient is open to go to a short-term rehab) Objective Vital Signs: Vital Signs - 24 hr 04/15/23 04/15/23 04/15/23 07:47 11:20 15:59 Temperature 36.8 C 36.9 C 36.8 C Heart Rate [ 70 76 79 Brachial] Respiratory 20 20 20 Rate Blood Pressure 152/72 H 139/71 H 131/48 H [Right Brachial artery] O2 Saturation 96 96 98 04/15/23 04/15/23 04/16/23 19:43 20:33 00:04 Temperature 36.9 C 37.0 C 36.8 C Heart Rate [ 82 78 77 Brachial] Respiratory 16 20 18 Rate Blood Pressure 140/72 H 122/66 147/81 H [Right Brachial artery] O2 Saturation 97 96 98 04/16/23 05:47 Temperature 36.7 C Heart Rate [ 77 Brachial] Respiratory 18 Rate Blood Pressure 140/69 H [Right Brachial artery] O2 Saturation 94 Oxygen O2 Source Room air I&O (Last 24 Hrs): Intake and Output Totals x24h 04/14/23 04/15/23 04/16/23 23:59 23:59 23:59 Intake Total 2788 2898 Output Total 3275 1775 1050 Balance -487 1123 -1050 General: Alert, Oriented x3 HEENT: PERRLA, EOMI Neck: Supple, No JVD Neuro: Alert, CN 2-12 Grossly Intact Respiratory: Chest non-tender, No respiratory distress Extremities: No clubbing, Normal pulses - Results Results: Laboratory Results WBC 6.3 x10^3/uL (4.8-10.8) 04/16/23 04:19 RBC 3.17 10^6/uL (4.70-6.10) L 04/16/23 04:19 Hgb 9.6 g/dL (14.0-18.0) L 04/16/23 04:19 Hct 29.7 % (42.0-52.0) L 04/16/23 04:19 MCV 93.7 fL (80.0-94.0) 04/16/23 04:19 MCH 30.3 pg (27.0-31.0) 04/16/23 04:19 MCHC 32.3 g/dL (32.0-36.0) 04/16/23 04:19 RDW 13.9 % (12.0-15.0) 04/16/23 04:19 Plt Count 138 10^3/uL (130-450) 04/16/23 04:19 MPV 10.1 fL (7.4-11.4) 04/16/23 04:19 Neut # (Auto) 3.9 10^3/uL (1.5-6.6) 04/16/23 04:19 Lymph # (Auto) 1.5 10^3/uL (1.5-3.5) 04/16/23 04:19 [place] # (Auto) 0.8 10^3/uL (0.0-1.0) 04/16/23 04:19 Eos # (Auto) 0.2 10^3/uL (0.0-0.7) 04/16/23 04:19 Baso # (Auto) 0.0 10^3/uL (0.0-0.1) 04/16/23 04:19 Absolute Nucleated RBC 0.00 x10^3/uL 04/16/23 04:19 Nucleated RBC % 0.0 /100WBC 04/16/23 04:19 PT 11.5 secs (9.9-12.6) 04/11/23 18:14 INR 1.1 (0.8-1.2) 04/11/23 18:14 APTT 27.8 secs (24.9-33.3) 04/11/23 18:14 Sodium 137 mmol/L (135-145) 04/16/23 04:19 Potassium 4.4 mmol/L (3.5-4.5) 04/16/23 04:19 Chloride 103 mmol/L (101-111) 04/16/23 04:19 Carbon Dioxide 29 mmol/L (21-32) 04/16/23 04:19 Anion Gap 5.0 (6-13) L 04/16/23 04:19 BUN 21 mg/dL (6-20) H 04/16/23 04:19 Creatinine 0.8 mg/dL (0.6-1.3) 04/16/23 04:19 Estimated GFR (MDRD) 92 (>89) 04/16/23 04:19 Glucose 203 mg/dL (74-104) H 04/16/23 04:19 POC Whole Bld Glucose 238 mg/dL (70 - 100) H 04/15/23 20:31 Estimat Average Glucose 186 mg/dL (70-100) H 04/12/23 05:27 Hemoglobin A1c % 8.1 % (4.27-6.07) H 04/12/23 05:27 Calcium 8.7 mg/dL (8.5-10.3) 04/16/23 04:19 Magnesium 1.9 mg/dL (1.7-2.3) 04/11/23 18:14 Total Bilirubin 0.6 mg/dL (0.2-1.0) 04/11/23 18:14 AST 15 IU/L (10-42) 04/11/23 18:14 ALT 16 IU/L (10-60) 04/11/23 18:14 Alkaline Phosphatase 77 IU/L (42-121) 04/11/23 18:14 Troponin I High Sens 10.7 ng/L (2.3-19.7) 04/13/23 11:25 Total Protein 7.9 g/dL (6.4-8.9) 04/11/23 18:14 Albumin 5.1 g/dL (3.2-5.5) 04/11/23 18:14 Globulin 2.8 g/dL (2.1-4.2) 04/11/23 18:14 Albumin/Globulin Ratio 1.8 (1.0-2.2) 04/11/23 18:14 Lipase < 10 U/L (11-82) L 04/11/23 18:14 Urine Color YELLOW 04/11/23 22:45 Urine Clarity CLEAR (CLEAR) 04/11/23 22:45 Urine pH 5.5 PH (5.0-7.5) 04/11/23 22:45 Ur Specific [place] 1.020 (1.002-1.030) 04/11/23 22:45 Urine Protein NEGATIVE mg/dL (NEGATIVE) 04/11/23 22:45 Urine Glucose (UA) >=1000 mg/dL (NEGATIVE) H 04/11/23 22:45 Urine Ketones 15 mg/dL (NEGATIVE) H 04/11/23 22:45 Urine Occult Blood NEGATIVE (NEGATIVE) 04/11/23 22:45 Urine Nitrite NEGATIVE (NEGATIVE) 04/11/23 22:45 Urine Bilirubin NEGATIVE (NEGATIVE) 04/11/23 22:45 Urine Urobilinogen 0.2 (NORMAL) E.U./dL (NORMAL) 04/11/23 22:45 Ur Leukocyte Esterase NEGATIVE (NEGATIVE) 04/11/23 22:45 Ur Microscopic Review NOT INDICATED 04/11/23 22:45 Urine Culture Comments NOT INDICATED 04/11/23 22:45 Blood Type O POSITIVE 04/14/23 08:10 Blood Type Recheck O POSITIVE 04/14/23 05:01 Antibody Screen NEGATIVE 04/14/23 08:10 Crossmatch IS Only See Detail 04/14/23 08:10 Sepsis Event Note (H) - Evaluation Current Stage of Sepsis: Ruled out ABX Reporting Has patient been on IV antibiotics over the past 48 hours?: No Current Medications - Current Medications Current Medications: Active Medications Acetaminophen (Acetaminophen 325 Mg Tablet) 650 mg PO Q4HR PRN PRN Reason: pain Last Admin: 04/15/23 23:58 Dose: 650 mg Atorvastatin Calcium (Atorvastatin 10 Mg Tablet) 5 mg PO QPM [facility] Last Admin: 04/15/23 20:44 Dose: 5 mg Carvedilol (Carvedilol 3.125 Mg Tablet) 3.125 mg PO BID [facility] Last Admin: 04/15/23 20:46 Dose: 3.125 mg Clopidogrel Bisulfate (Clopidogrel 75 Mg Tablet) 75 mg PO DAILY [facility] Docusate Sodium (Docusate Sodium 100 Mg Capsule) 100 mg PO BID PRN PRN Reason: Constipation Last Admin: 04/15/23 20:45 Dose: 100 mg Hydralazine HCl (Hydralazine 10 Mg Tablet) 10 mg PO Q6H PRN PRN Reason: Blood Pressure Insulin Glargine-yfgn (Insulin Glargine-Yfgn 300 Unit/3 Ml Pen) 10 unit SUBQ QPM [facility] Insulin Human Lispro (Insulin Lispro 300 Unit/3 Ml Pen) 2 - 10 unit SUBQ 0800,1200,1700,2100 [facility]; Protocol Last Admin: 04/16/23 07:49 Dose: 6 unit Insulin Human Lispro (Insulin Lispro 300 Unit/3 Ml Pen) 6 unit SUBQ TIDWM [facility] Last Admin: 04/16/23 07:51 Dose: 6 unit Losartan Potassium (Losartan 50 Mg Tablet) 50 mg PO DAILY [facility] Morphine Sulfate (Morphine 2 Mg/Ml Carpuject) 2 mg IVP Q4HR PRN PRN Reason: Pain 8 to 10 Ondansetron HCl (Ondansetron Odt 4 Mg Tablet) 4 mg TL Q6HR PRN PRN Reason: Nausea / Vomiting Ondansetron HCl (Ondansetron 4 Mg/2 Ml Vial) 4 mg IVP Q6HR PRN PRN Reason: Nausea / Vomiting Oxycodone HCl (Oxycodone 5 Mg Tablet) 5 mg PO Q4HR PRN PRN Reason: Pain 5 to 7 Last Admin: 04/16/23 07:49 Dose: 5 mg Polyethylene Glycol (Polyethylene Glycol 3350 17 Gm Packet) 17 gm PO DAILY [facility] Last Admin: 04/16/23 07:56 Dose: 17 gm Prochlorperazine Edisylate (Prochlorperazine 10 Mg/2 Ml Vial) 10 mg IVP Q6HR PRN PRN Reason: Nausea / Vomiting Last Admin: 04/12/23 19:54 Dose: 10 mg Sodium Chloride (Sodium Chloride Flush 0.9% 10 Ml Syringe) 10 ml IVP PRN PRN PRN Reason: NEEDED PER PROVIDER ORDERS Sodium Chloride (Sodium Chloride Flush 0.9% 10 Ml Syringe) 10 ml IVP 0100,0900,1700 [facility] Last Admin: 04/15/23 23:59 Dose: 10 ml Clopidogrel [Plavix] 75 mg PO DAILY 04/11/23 Empagliflozin [Jardiance] 25 mg PO DAILY 04/11/23 Losartan [Cozaar] 50 mg PO DAILY 04/11/23 Rosuvastatin Calcium [Crestor] 2.5 mg PO QPM 04/11/23 carvediloL [Coreg] 3.125 mg PO BID 04/11/23 Sitagliptin Phos/Metformin HCl [Janumet Xr 50-1,000 mg Tablet] 1 tab PO DAILY 04/12/23
[2023-04-16] MEDS: INSULIN LISPRO 300 UNIT/3 ML PEN SUBQ SCH ×7 (07:49→20:48)
[2023-04-16] MEDS: polyethylene glycoL 3350 17 GM PACKET PO SCH (07:56)
[2023-04-16] MEDS: CLOPIDOGREL 75 MG TABLET PO SCH (11:13)
[2023-04-16] MEDS: SODIUM CHLORIDE FLUSH 0.9% 10 ML SYRINGE IVP SCH ×2 (11:13→17:08)
[2023-04-16] MEDS: carvediloL 3.125 MG TABLET PO SCH ×2 (11:13→20:45)
[2023-04-16] MEDS: LOSARTAN 50 MG TABLET PO SCH (11:13)
[2023-04-16] MEDS: ACETAMINOPHEN 325 MG TABLET PO PRN (20:45)
[2023-04-16] MEDS: ATORVASTATIN 10 MG TABLET PO SCH (20:45)
[2023-04-16] MEDS ORDERED: INSULIN GLARGINE-YFGN 300 UNIT/3 ML PEN SUBQ SCH (21:00)
[2023-04-17] MEDS: oxyCODONE 5 MG TABLET PO PRN ×5 (02:44→21:27)
[2023-04-17] MEDS: ACETAMINOPHEN 325 MG TABLET PO PRN ×4 (02:44→21:27)
[2023-04-17 05:51] LABS: BASOPHILS % (AUTO) 0.4 %; EOSINOPHILS # (AUTO) 0.3 10^3/uL (0.0-0.7); EOSINOPHILS % (AUTO) 5.1 %; HGB - HEMOGLOBIN 9.4 g/dL (14.0-18.0); LYMPHOCYTES # (AUTO) 1.2 10^3/uL (1.5-3.5); LYMPHOCYTES % (AUTO) 23.5 %; MEAN CORPUSCULAR HEMOGLOBIN 30.1 pg (27.0-31.0); MEAN CORPUSCULAR HGB CONC 32.4 g/dL (32.0-36.0); MEAN CORPUSCULAR VOLUME 92.9 fL (80.0-94.0); MEAN PLATELET VOLUME 9.9 fL (7.4-11.4); MONOCYTES # (AUTO) 0.7 10^3/uL (0.0-1.0); MONOCYTES % (AUTO) 12.7 %; NEUTROPHILS # (AUTO) 3.1 10^3/uL (1.5-6.6); NEUTROPHILS % (AUTO) 58.1 %; PLT - PLATELET COUNT 157 10^3/uL (130-450); RED BLOOD COUNT 3.12 10^6/uL (4.70-6.10); RED CELL DISTRIBUTION WIDTH 13.5 % (12.0-15.0); WHITE BLOOD COUNT 5.3 x10^3/uL (4.8-10.8)
[2023-04-17 06:09] LABS: CALCIUM 8.6 mg/dL (8.5-10.3); CREATININE 0.7 mg/dL (0.6-1.3); POTASSIUM 4.3 mmol/L (3.5-4.5)
[2023-04-17] MEDS: SODIUM CHLORIDE FLUSH 0.9% 10 ML SYRINGE IVP SCH ×3 (06:39→17:11)
[2023-04-17] MEDS: INSULIN LISPRO 300 UNIT/3 ML PEN SUBQ SCH ×7 (08:06→21:29)
[2023-04-17] MEDS: carvediloL 3.125 MG TABLET PO SCH ×2 (08:07→21:27)
[2023-04-17] MEDS: LOSARTAN 50 MG TABLET PO SCH (08:07)
[2023-04-17] MEDS: polyethylene glycoL 3350 17 GM PACKET PO SCH (08:08)
[2023-04-17] MEDS: CLOPIDOGREL 75 MG TABLET PO SCH (08:08)
[2023-04-17] MEDS: CHOLECALCIFEROL 25 MCG TABLET PO SCH (08:19)
[2023-04-17] MEDS: CALCIUM CARBONATE CHEW 500 MG TABLET PO SCH ×2 (08:19→21:27)
--- NOTE | 2023-04-17 17:06 | PROVIDER PROGRESS NOTE ---
Assessment/Plan - Problem List (1) Acute anemia Assessment/Plan: stable, Hb at 9 tolerate plavix well continue monitoring H&H (2) SRAVANTHI (acute kidney injury) Assessment/Plan: Resolved Cr 0.7 today (3) Fracture, intertrochanteric, left femur Assessment/Plan: POD 5 Patient is doing better, bear weight, however, poor mobility Per PT, OT, patient is recommended for SNF Medically stable for discharge, await for placement (4) CAD (coronary artery disease) Assessment/Plan: stable (5) Diabetic acidosis, type II Assessment/Plan: hyperglycemia, BS 200s adjust lantus and lispro dose (6) HTN (hypertension) Assessment/Plan: stable, continue current regimen (7) HLD (hyperlipidemia) Assessment/Plan: continue lipitor - Current Meds Current Meds: Current Medications Generic Name Dose Route Start Last Admin Trade Name Freq PRN Reason Stop Dose Admin Acetaminophen 650 mg 04/15/23 12:51 04/17/23 13:13 Acetaminophen 325 Mg Tablet PO 650 mg Q4HR PRN Administration pain Atorvastatin Calcium 5 mg 04/12/23 21:00 04/16/23 20:45 Atorvastatin 10 Mg Tablet PO 5 mg QPM [facility] Administration Calcium Carbonate/Glycine 500 mg 04/17/23 09:00 04/17/23 08:19 Calcium Carbonate Chew 500 Mg Tablet PO 500 mg BID [facility] Administration Carvedilol 3.125 mg 04/12/23 09:00 04/17/23 08:07 Carvedilol 3.125 Mg Tablet PO 3.125 mg BID [facility] Administration Cholecalciferol 50 mcg 04/17/23 09:00 04/17/23 08:19 Cholecalciferol 25 Mcg Tablet PO 50 mcg DAILY [facility] Administration Clopidogrel Bisulfate 75 mg 04/16/23 09:00 04/17/23 08:08 Clopidogrel 75 Mg Tablet PO 75 mg DAILY [facility] Administration Docusate Sodium 100 mg 04/12/23 18:02 04/15/23 20:45 Docusate Sodium 100 Mg Capsule PO 100 mg BID PRN Administration Constipation Insulin Human Lispro 6 unit 04/16/23 08:00 04/17/23 11:54 Insulin Lispro 300 Unit/3 Ml Pen SUBQ 6 unit TIDWM [facility] Administration Insulin Human Lispro 3 - 11 unit 04/17/23 12:00 04/17/23 11:55 Insulin Lispro 300 Unit/3 Ml Pen SUBQ 7 unit 0800,1200,1700,2100 [facility] Administration Protocol Losartan Potassium 50 mg 04/16/23 09:00 04/17/23 08:07 Losartan 50 Mg Tablet PO 50 mg DAILY [facility] Administration Oxycodone HCl 5 mg 04/11/23 20:39 04/17/23 13:12 Oxycodone 5 Mg Tablet PO 5 mg Q4HR PRN Administration Pain 5 to 7 Polyethylene Glycol 17 gm 04/14/23 09:00 04/17/23 08:08 Polyethylene Glycol 3350 17 Gm Packet PO 17 gm DAILY [facility] Administration Prochlorperazine Edisylate 10 mg 04/12/23 19:43 04/12/23 19:54 Prochlorperazine 10 Mg/2 Ml Vial IVP 10 mg Q6HR PRN Administration Nausea / Vomiting Sodium Chloride 10 ml 04/12/23 01:00 04/17/23 08:08 Sodium Chloride Flush 0.9% 10 Ml Syringe IVP 10 ml 0100,0900,1700 [facility] Administration - Lab Result Fish Bone Diagrams: 04/17/23 04:23 04/17/23 04:23 - Additional Planning My Orders: My Active Orders 04/17/23 09:00 Calcium Carbonate [Tums] 500 mg PO BID Cholecalciferol [Vitamin D3] 50 mcg PO DAILY 04/17/23 12:00 Insulin Lispro [Humalog Kwikpen U-100] 3 - 11 unit SUBQ 0800,1200,1700,2100 04/17/23 21:00 Insulin Glargine-Yfgn [Semglee] 12 unit SUBQ QPM 04/18/23 05:00 BMP - BASIC METABOLIC PANEL [CHEM] DAILYLAB CBC [CBC - COMP BLD CT W/AUTO DIFF] [HEME] DAILYLAB 04/19/23 05:00 BMP - BASIC METABOLIC PANEL [CHEM] DAILYLAB CBC [CBC - COMP BLD CT W/AUTO DIFF] [HEME] DAILYLAB 04/20/23 05:00 BMP - BASIC METABOLIC PANEL [CHEM] DAILYLAB CBC [CBC - COMP BLD CT W/AUTO DIFF] [HEME] DAILYLAB Subjective - Subjective Patient Reports: Feeling Better (Frustrated that he cannot walk so well, still has a lot of pain) Objective Vital Signs: Vital Signs - 24 hr 04/16/23 04/17/2304/17/23 20:28 01:10 06:15 Temperature 36.6 C 36.6 C 36.6 C Heart Rate [ 79 73 68 Brachial] Respiratory 20 19 18 Rate Blood Pressure 125/73 153/70 H 147/55 H [Right Brachial artery] O2 Saturation 96 97 96 04/17/23 04/17/23 04/17/23 07:40 07:57 11:20 Temperature 36.6 C 36.8 C Heart Rate [ 75 76 74 Brachial] Respiratory 18 18 Rate Blood Pressure 179/81 H 156/82 H 116/65 [Right Brachial artery] O2 Saturation 97 95 Oxygen O2 Source Room air I&O (Last 24 Hrs): Intake and Output Totals x24h 04/15/23 04/16/23 04/17/23 23:59 23:59 23:59 Intake Total 2898 1350 1080 Output Total 1775 2400 1500 Balance 1123 -1050 -420 General: Alert, Oriented x3 HEENT: PERRLA, EOMI Neck: Supple, No JVD Neuro: Alert, Non Focal Cardiovascular: Regular rate, Normal S1, Normal S2 Respiratory: Chest non-tender, No respiratory distress Abdomen: Normal bowel sounds, Soft Extremities: Other (Mild left upper leg edema, dressing clean and dry) - Results Results: Laboratory Results WBC 5.3 x10^3/uL (4.8-10.8) 04/17/23 04:23 RBC 3.12 10^6/uL (4.70-6.10) L 04/17/23 04:23 Hgb 9.4 g/dL (14.0-18.0) L 04/17/23 04:23 Hct 29.0 % (42.0-52.0) L 04/17/23 04:23 MCV 92.9 fL (80.0-94.0) 04/17/23 04:23 MCH 30.1 pg (27.0-31.0) 04/17/23 04:23 MCHC 32.4 g/dL (32.0-36.0) 04/17/23 04:23 RDW 13.5 % (12.0-15.0) 04/17/23 04:23 Plt Count 157 10^3/uL (130-450) 04/17/23 04:23 MPV 9.9 fL (7.4-11.4) 04/17/23 04:23 Neut # (Auto) 3.1 10^3/uL (1.5-6.6) 04/17/23 04:23 Lymph # (Auto) 1.2 10^3/uL (1.5-3.5) L 04/17/23 04:23 [place] # (Auto) 0.7 10^3/uL (0.0-1.0) 04/17/23 04:23 Eos # (Auto) 0.3 10^3/uL (0.0-0.7) 04/17/23 04:23 Baso # (Auto) 0.0 10^3/uL (0.0-0.1) 04/17/23 04:23 Absolute Nucleated RBC 0.00 x10^3/uL 04/17/23 04:23 Nucleated RBC % 0.0 /100WBC 04/17/23 04:23 PT 11.5 secs (9.9-12.6) 04/11/23 18:14 INR 1.1 (0.8-1.2) 04/11/23 18:14 APTT 27.8 secs (24.9-33.3) 04/11/23 18:14 Sodium 134 mmol/L (135-145) L 04/17/23 04:23 Potassium 4.3 mmol/L (3.5-4.5) 04/17/23 04:23 Chloride 101 mmol/L (101-111) 04/17/23 04:23 Carbon Dioxide 28 mmol/L (21-32) 04/17/23 04:23 Anion Gap 5.0 (6-13) L 04/17/23 04:23 BUN 24 mg/dL (6-20) H 04/17/23 04:23 Creatinine 0.7 mg/dL (0.6-1.3) 04/17/23 04:23 Estimated GFR (MDRD) 107 (>89) 04/17/23 04:23 Glucose 204 mg/dL (74-104) H 04/17/23 04:23 POC Whole Bld Glucose 228 mg/dL (70 - 100) H 04/17/23 16:32 Estimat Average Glucose 186 mg/dL (70-100) H 04/12/23 05:27 Hemoglobin A1c % 8.1 % (4.27-6.07) H 04/12/23 05:27 Calcium 8.6 mg/dL (8.5-10.3) 04/17/23 04:23 Magnesium 1.9 mg/dL (1.7-2.3) 04/11/23 18:14 Total Bilirubin 0.6 mg/dL (0.2-1.0) 04/11/23 18:14 AST 15 IU/L (10-42) 04/11/23 18:14 ALT 16 IU/L (10-60) 04/11/23 18:14 Alkaline Phosphatase 77 IU/L (42-121) 04/11/23 18:14 Troponin I High Sens 10.7 ng/L (2.3-19.7) 04/13/23 11:25 Total Protein 7.9 g/dL (6.4-8.9) 04/11/23 18:14 Albumin 5.1 g/dL (3.2-5.5) 04/11/23 18:14 Globulin 2.8 g/dL (2.1-4.2) 04/11/23 18:14 Albumin/Globulin Ratio 1.8 (1.0-2.2) 04/11/23 18:14 Lipase < 10 U/L (11-82) L 04/11/23 18:14 Urine Color YELLOW 04/11/23 22:45 Urine Clarity CLEAR (CLEAR) 04/11/23 22:45 Urine pH 5.5 PH (5.0-7.5) 04/11/23 22:45 Ur Specific [place] 1.020 (1.002-1.030) 04/11/23 22:45 Urine Protein NEGATIVE mg/dL (NEGATIVE) 04/11/23 22:45 Urine Glucose (UA) >=1000 mg/dL (NEGATIVE) H 04/11/23 22:45 Urine Ketones 15 mg/dL (NEGATIVE) H 04/11/23 22:45 Urine Occult Blood NEGATIVE (NEGATIVE) 04/11/23 22:45 Urine Nitrite NEGATIVE (NEGATIVE) 04/11/23 22:45 Urine Bilirubin NEGATIVE (NEGATIVE) 04/11/23 22:45 Urine Urobilinogen 0.2 (NORMAL) E.U./dL (NORMAL) 04/11/23 22:45 Ur Leukocyte Esterase NEGATIVE (NEGATIVE) 04/11/23 22:45 Ur Microscopic Review NOT INDICATED 04/11/23 22:45 Urine Culture Comments NOT INDICATED 04/11/23 22:45 Blood Type O POSITIVE 04/14/23 08:10 Blood Type Recheck O POSITIVE 04/14/23 05:01 Antibody Screen NEGATIVE 04/14/23 08:10 Crossmatch IS Only See Detail 04/14/23 08:10 Sepsis Event Note (H) - Evaluation Current Stage of Sepsis: Ruled out ABX Reporting Has patient been on IV antibiotics over the past 48 hours?: No Current Medications - Current Medications Current Medications: Active Medications Acetaminophen (Acetaminophen 325 Mg Tablet) 650 mg PO Q4HR PRN PRN Reason: pain Last Admin: 04/17/23 13:13 Dose: 650 mg Atorvastatin Calcium (Atorvastatin 10 Mg Tablet) 5 mg PO QPM [facility] Last Admin: 04/16/23 20:45 Dose: 5 mg Calcium Carbonate/Glycine (Calcium Carbonate Chew 500 Mg Tablet) 500 mg PO BID [facility] Last Admin: 04/17/23 08:19 Dose: 500 mg Carvedilol (Carvedilol 3.125 Mg Tablet) 3.125 mg PO BID [facility] Last Admin: 04/17/23 08:07 Dose: 3.125 mg Cholecalciferol (Cholecalciferol 25 Mcg Tablet) 50 mcg PO DAILY [facility] Last Admin: 04/17/23 08:19 Dose: 50 mcg Clopidogrel Bisulfate (Clopidogrel 75 Mg Tablet) 75 mg PO DAILY [facility] Last Admin: 04/17/23 08:08 Dose: 75 mg Docusate Sodium (Docusate Sodium 100 Mg Capsule) 100 mg PO BID PRN PRN Reason: Constipation Last Admin: 04/15/23 20:45 Dose: 100 mg Hydralazine HCl (Hydralazine 10 Mg Tablet) 10 mg PO Q6H PRN PRN Reason: Blood Pressure Insulin Glargine-yfgn (Insulin Glargine-Yfgn 300 Unit/3 Ml Pen) 12 unit SUBQ QPM [facility] Insulin Human Lispro (Insulin Lispro 300 Unit/3 Ml Pen) 6 unit SUBQ TIDWM [facility] Last Admin: 04/17/23 17:10 Dose: 6 unit Insulin Human Lispro (Insulin Lispro 300 Unit/3 Ml Pen) 3 - 11 unit SUBQ 080 0,1200,1700,2100 [facility]; Protocol Last Admin: 04/17/23 17:08 Dose: 7 unit Losartan Potassium (Losartan 50 Mg Tablet) 50 mg PO DAILY [facility] Last Admin: 04/17/23 08:07 Dose: 50 mg Morphine Sulfate (Morphine 2 Mg/Ml Carpuject) 2 mg IVP Q4HR PRN PRN Reason: Pain 8 to 10 Ondansetron HCl (Ondansetron Odt 4 Mg Tablet) 4 mg TL Q6HR PRN PRN Reason: Nausea / Vomiting Ondansetron HCl (Ondansetron 4 Mg/2 Ml Vial) 4 mg IVP Q6HR PRN PRN Reason: Nausea / Vomiting Oxycodone HCl (Oxycodone 5 Mg Tablet) 5 mg PO Q4HR PRN PRN Reason: Pain 5 to 7 Last Admin: 04/17/23 17:13 Dose: 5 mg Polyethylene Glycol (Polyethylene Glycol 3350 17 Gm Packet) 17 gm PO DAILY [facility] Last Admin: 04/17/23 08:08 Dose: 17 gm Prochlorperazine Edisylate (Prochlorperazine 10 Mg/2 Ml Vial) 10 mg IVP Q6HR PRN PRN Reason: Nausea / Vomiting Last Admin: 04/12/23 19:54 Dose: 10 mg Sodium Chloride (Sodium Chloride Flush 0.9% 10 Ml Syringe) 10 ml IVP PRN PRN PRN Reason: NEEDED PER PROVIDER ORDERS Sodium Chloride (Sodium Chloride Flush 0.9% 10 Ml Syringe) 10 ml IVP 0100,0900,1700 [facility] Last Admin: 04/17/23 17:11 Dose: 10 ml Clopidogrel [Plavix] 75 mg PO DAILY 04/11/23 Empagliflozin [Jardiance] 25 mg PO DAILY 04/11/23 Losartan [Cozaar] 50 mg PO DAILY 04/11/23 Rosuvastatin Calcium [Crestor] 2.5 mg PO QPM 04/11/23 carvediloL [Coreg] 3.125 mg PO BID 04/11/23 Sitagliptin Phos/Metformin HCl [Janumet Xr 50-1,000 mg Tablet] 1 tab PO DAILY 04/12/23
[2023-04-17] MEDS ORDERED: INSULIN GLARGINE-YFGN 300 UNIT/3 ML PEN SUBQ SCH (21:00)
[2023-04-17] MEDS: ATORVASTATIN 10 MG TABLET PO SCH (21:27)
[2023-04-18] MEDS: SODIUM CHLORIDE FLUSH 0.9% 10 ML SYRINGE IVP SCH ×2 (01:27→08:31)
[2023-04-18] MEDS: ACETAMINOPHEN 325 MG TABLET PO PRN ×3 (01:27→11:27)
[2023-04-18] MEDS: oxyCODONE 5 MG TABLET PO PRN ×3 (01:27→11:28)
[2023-04-18 05:59] LABS: BASOPHILS % (AUTO) 0.4 %; EOSINOPHILS # (AUTO) 0.3 10^3/uL (0.0-0.7); EOSINOPHILS % (AUTO) 4.7 %; HCT - HEMATOCRIT 30.8 % (42.0-52.0); LYMPHOCYTES # (AUTO) 1.3 10^3/uL (1.5-3.5); MEAN CORPUSCULAR HEMOGLOBIN 30.1 pg (27.0-31.0); MEAN CORPUSCULAR HGB CONC 32.5 g/dL (32.0-36.0); MEAN CORPUSCULAR VOLUME 92.8 fL (80.0-94.0); MEAN PLATELET VOLUME 9.9 fL (7.4-11.4); MONOCYTES # (AUTO) 0.6 10^3/uL (0.0-1.0); MONOCYTES % (AUTO) 11.7 %; NEUTROPHILS # (AUTO) 3.3 10^3/uL (1.5-6.6); NEUTROPHILS % (AUTO) 59.8 %; PLT - PLATELET COUNT 196 10^3/uL (130-450); RED BLOOD COUNT 3.32 10^6/uL (4.70-6.10); RED CELL DISTRIBUTION WIDTH 13.4 % (12.0-15.0); WHITE BLOOD COUNT 5.5 x10^3/uL (4.8-10.8)
[2023-04-18 06:09] LABS: CALCIUM 8.9 mg/dL (8.5-10.3); CREATININE 0.7 mg/dL (0.6-1.3); POTASSIUM 4.3 mmol/L (3.5-4.5)
[2023-04-18] MEDS: CHOLECALCIFEROL 25 MCG TABLET PO SCH (08:30)
[2023-04-18] MEDS: LOSARTAN 50 MG TABLET PO SCH (08:30)
[2023-04-18] MEDS: carvediloL 3.125 MG TABLET PO SCH (08:30)
[2023-04-18] MEDS: INSULIN LISPRO 300 UNIT/3 ML PEN SUBQ SCH ×4 (08:30→11:45)
[2023-04-18] MEDS: CLOPIDOGREL 75 MG TABLET PO SCH (08:31)
[2023-04-18] MEDS: CALCIUM CARBONATE CHEW 500 MG TABLET PO SCH (08:31)
[2023-04-18] MEDS: polyethylene glycoL 3350 17 GM PACKET PO SCH (08:31)
--- NOTE | 2023-04-18 11:15 | Discharge Plan ---
"Discharge Plan for SNF / [facility] - Discharge Plan And Transition Orders Problem Reviewed?: Yes Disposition: 03 DC/Xfer Condition: Stable Allergies and Adverse Reactions: Allergies Allergy/AdvReac Type Severity Reaction Status Date / Time No Known Drug Allergies Allergy Verified 04/11/23 18:16 Health Concerns: Patient suffered a hip fracture after a fall. He underwent orthopedic surgery. He has had elevated glucoses in the 200s. He was on long-acting and sliding scale insulin while here. At discharge to SNF, his home meds are ordered to be resumed. Plan of Treatment: Resume his usual home meds. Needs PT and OT rehab at SNF. Care Goals: Improvement in symptoms and stabilization are the goals. Assessment: Patient agreeable to SNF - SNF / [facility] Transition Orders Admit to (Facility): [facility] Under the care of (Name): Dr. Benitez Discharge Diagnosis: (1) Fracture, intertrochanteric, left femur POD #6, Patient is doing better, bearing weight, however needs PT and OT (2) Anemia Needed 2U PRBCs transfused (3) SRAVANTHI (acute kidney injury) Resolved (4) Hyperglycemia due to Diabetes Mellitus type II He was on long-acting and sliding scale insulin while here. At discharge to SNF, his home meds are ordered to be resumed. (5) CAD (coronary artery disease) Stable (6) HTN (hypertension) Stable (7) HLD (hyperlipidemia) Stable Medicare Certification Statement: I certify that [facility] care is medically necessary on a continuing basis for any of the conditions for which she/he is receiving care during hospitalization. Notify PCP of admission and forward orders to primary provider for signature. Weight on admission and: Weekly Call PCP immediately if weight increases by: 5 kg Other Notification Orders: Call PCP immediately if patient develops dyspnea, chest pain/tightness or edema. House Bowel Program: Yes Additional Bowel Program Orders: If no BM after 2 days, nurse may give M.O.M. 30ml PO PRN and/or ducolax Supp 1 IA and/or THIERNO 250mg P.O., and/or senna 1-2 tabs PO. On day 3 nurse may give repeat above order until residents constipation is resolved. Annual Influenza Vaccine (between Feb 17 and September 16): Yes Two-step PPD per [facility] [id number] or approved exception documents: Yes Treatments & Other Orders: Daily PT and OT Medication Orders: PLEASE REFER TO THE DISCHARGE MEDICATION LIST. Insulin Orders?: Yes - Medications New Prescriptions: oxyCODONE [Roxicodone] 5 mg PO Q4HR PRN #12 tab PRN Reason: Pain 5 to 7 Insulin Lispro [Humalog Kwikpen U-100] 3 - 11 unit SUBQ 0800,1200,1700,2100 #1 ea Calcium Carbonate [Tums (Calcium Carbonate 500mg)] 500 mg PO BID #60 tab Cholecalciferol [Vitamin D3] 50 mcg PO DAILY #30 tab - Diet Type: Geriatric (Diabetic diet) Texture: Regular Liquids: Thin May have monthly special meal: Yes - Therapies | Activity Therapy: Evaluation | Treat if indicated: PT, OT Rehabilitation Potential: Maximize functional status Activity: Activity as Tolerated Weight Bearing: Full Weight Assistance Devices: Walker Follow Up: See PCP after discharge from . Insulin Orders - Basal | Correction | Custom Orders: Diagnosis: Diabetes Initiate hypo and hyperglycemia protocols for BG <70 and BG >375. May check BG PRN for signs/symptoms of dysglycemia. Frequency of BG checks: [AC/HS] Basal Insulin: None Correction Insulin: - Select the type of insulin below [Choose: Humalog]100 units /ml insulin inject subq per orders indicate below [] LOW DOSE [X] MODERATE DOSE [] MODERATE/HIGH DOSE [] HIGH DOSE GB UNITS GB UNITS GB UNITS GB UNITS 61-140 0 UNITS 61-140 0 UNITS 61-140 0 UNITS 61-140 0 UNITS 141-175 1 UNITS 141-175 1 UNITS 141-175 2 UNITS 141-175 3 UNITS 176-225 2 UNITS 176-225 3 UNITS 176-225 4 UNITS 176-225 5 UNITS 226-275 3 UNITS 226-275 5 UNITS 226-275 6 UNITS 226-275 7 UNITS 276-325 4 UNITS 276-325 7 UNITS 276-325 8 UNITS 276-325 9 UNITS 326-375 5 UNITS 326-375 9 UNITS 326-375 10 UNITS 326-375 11 UNITS >375 CONTACT MD >375 CONTACT MD >375 CONTACT MD >375 CONTACT MD"
[2023-04-18] MEDS: DOCUSATE SODIUM 100 MG CAPSULE PO PRN (11:27)
--- NOTE | 2023-04-18 11:48 | DISCHARGE SUMMARY ---
Discharge Summary Admit Date: 04/11/23 Discharge Date: 04/18/23 Discharging Provider: Dr Joe Primary Care Provider: Dr. Benitez Code Status: Attempt Resuscitation Condition at Discharge: Stable Discharge Disposition: SNF DC/Xfer Discharge Facility Name: [facility] History of Present Illness: H&P was conducted via video remotely, using Access Cart. Patient is in [place]. Physician is in [place]. Pt's Abbi is at bedside. 82 yo M with PMH of HTN, HLD, CAD and DM type 2 presented to the ER with c/o L hip pain s/p GLF. Pt tripped over something and landed on his L hip, then had pain, worse with movement. His leg felt weak. No head injury. Pt has h/o R hip surgery. Pt denies Dizziness/CP/SOB/N/V/abdo pain/F/C. He is independent and ambulates independently. In the ER, BP 201/99, WBC 11/2, Glc 198 CXR: NAD Hip/Pelvis Xray: L Hip Intertrochanteric Fracture ER Physician D/W Orthopedic Surgeon who recommended admit on Hospitalist service and they will consult in AM. Pt was given Fentanyl, Toradol and Zofran in the ER. - HOSPITAL COURSE Hospital Course: (1) Fracture, intertrochanteric, left femur Patient underwent orthopedic surgery, is doing better bearing weight, however needs PT and OT and is being discharged to a SNF. At discharge, new calcium and vitamin D prescribed. (2) Acute anemia Needed 2U PRBCs transfused when Hgb dropped to 7.2. Then Hgb remained stable at 9-10. (3) SRAVANTHI (acute kidney injury) Resolved with fluids and blood transfused (4) Hyperglycemia due to Diabetes Mellitus type II His Jardiance and his Sitaglipin/Metformin were on hold while he was here (we do not have them on formulary). He was getting long-acting and sliding scale Insulin coverage while here. At discharge to SNF, his home meds were ordered to be resumed, plus a sliding scale of Insulin. (5) Dizziness On the day of discharge, he had dizziness. Orthostatic VS were not abnormal, but his supine BP was "soft" at 102 systolic. His Losartan was therefore stopped at time of discharge. (6) CAD (coronary artery disease) Plavix was put on hold. Plavix was resumed post-op before discharge. Other usual meds were continued. (7) HTN (hypertension) Stable BP on Coreg. Losartan was stopped due to "soft" BP. (8) HLD (hyperlipidemia) Stable, meds were continued. - ALLERGIES Allergies/Adverse Reactions: Allergies Allergy/AdvReac Type Severity Reaction Status Date / Time No Known Drug Allergies Allergy Verified 04/11/23 18:16 - MEDICATIONS Home Medications: Ambulatory Orders Medication Instructions Recorded Confirmed Clopidogrel [Plavix] 75 mg PO DAILY 04/11/23 04/11/23 Empagliflozin [Jardiance] 25 mg PO DAILY 04/11/23 04/11/23 Rosuvastatin Calcium [Crestor] 2.5 mg PO QPM 04/11/23 04/11/23 carvediloL [Coreg] 3.125 mg PO BID 04/11/23 04/11/23 Sitagliptin Phos/Metformin HCl 1 tab PO DAILY 04/12/23 04/12/23 [Janumet Xr 50-1,000 mg Tablet] Acetaminophen [Tylenol] 650 mg PO Q4HR PRN tab 04/18/23 Calcium Carbonate [Tums (Calcium 500 mg PO BID #60 tab 04/18/23 Carbonate 500mg)] Cholecalciferol [Vitamin D3] 50 mcg PO DAILY #30 tab 04/18/23 Insulin Lispro [Humalog Kwikpen 3 - 11 unit SUBQ 04/18/23 U-100] 0800,1200,1700,2100 #1 ea oxyCODONE [Roxicodone] 5 mg PO Q4HR PRN #12 tab 04/18/23 - PHYSICAL EXAM AT DISCHARGE General Appearance: positive: No acute distress, Alert, Other (Tall, thin elderly male) Eyes Bilateral: positive: Normal inspection, EOMI ENT: positive: ENT inspection nml, No signs of dehydration Neck: positive: Nml inspection, No JVD Respiratory: positive: No respiratory distress Cardiovascular: positive: Regular rate & rhythm Abdomen: positive: No distention Skin: positive: Warm, Dry Extremities: positive: No pedal edema Neurologic/Psychiatric: positive: Oriented x3, Motor nml - LABS Result Diagrams: 04/18/23 04:53 04/18/23 04:53 - DIAGNOSTIC IMAGING Diagnostic Imaging Results: Final report reviewed - QUALITY (Female Hip Fx Only) Was patient sent home on osteoporosis medication?: Yes - FOLLOW UP Follow Up: This will be determined after his stay at SNF. - TIME SPENT Time Spent in Discharge (Minutes): 45
--- NOTE | 2023-04-18 14:09 | XRAY Report ---
PROCEDURE: Chest 1 View X-Ray INDICATIONS: SOB TECHNIQUE: One view of the chest was acquired. COMPARISON: None. FINDINGS: Surgical changes and devices: None. Lungs and pleura: No pleural effusions or pneumothorax. Lungs are clear. Mediastinum: Mediastinal contours appear normal. Heart size is normal. Bones and chest wall: No suspicious bony lesions. Overlying soft tissues appear unremarkable. IMPRESSION: No acute cardiopulmonary process. Reviewed by: Shane Mendoza MD on 04/18/2023 2:08 PM PDT Approved by: Shane Mendoza MD on 04/18/2023 2:08 PM PDT Station ID: [id number]
[2023-04-18 14:47] VITALS: BP 116/71; O2SAT 99
== END 2023-04-18 14:50 | DRG 481 ==
LOC: EDUNIT# → ED 17:59 → MS2 20:39
PROVIDERS: ADMIT Internal Medicine; ATTEND Internal Medicine
PROC: 0QS706Z Reposition Left Upper Femur with Intramedullary Internal Fixation Device, Open Approach (ICD-10-PCS; principal; 2023-04-11)
PROC: 30233N1 Transfusion of Nonautologous Red Blood Cells into Peripheral Vein, Percutaneous Approach (ICD-10-PCS; 2023-04-14)
DX: S72.142A Displaced intertrochanteric fracture of left femur, initial encounter for closed fracture (principal); N17.9 Acute kidney failure, unspecified; W10.9XXA Fall (on) (from) unspecified stairs and steps, initial encounter; W01.0XXA Fall on same level from slipping, tripping and stumbling without subsequent striking against object, initial encounter; E11.65 Type 2 diabetes mellitus with hyperglycemia; R42 Dizziness and giddiness; E11.9 Type 2 diabetes mellitus without complications; I25.10 Atherosclerotic heart disease of native coronary artery without angina pectoris; I10 Essential (primary) hypertension; E78.5 Hyperlipidemia, unspecified; D64.9 Anemia, unspecified; D72.829 Elevated white blood cell count, unspecified; Z95.5 Presence of coronary angioplasty implant and graft; Y92.009 Unspecified place in unspecified non-institutional (private) residence as the place of occurrence of the external cause; Z79.84 Long term (current) use of oral hypoglycemic drugs; Z79.02 Long term (current) use of antithrombotics/antiplatelets
CPT/HCPCS: 36415; 70450; 71045; 73502; 80048; 80053; 81003; 83036; 83690; 83735; 84484; 85014; 85018; 85025; 85027; 85610; 85730; 86850; 86900; 86901; 86920; 93005; 96374; 96375; 97116; 97162; 97166; 97530; 99285; A9270; C1713; J1815; J2372; J2795; J7120; P9016; 81001; 87086

== ENCOUNTER 2023-04-21 08:00 | Outpatient (CLI) | payer MEDICARE ==
[2023-04-21 20:31] LABS: BASOPHILS % (AUTO) 0.4 %; EOSINOPHILS # (AUTO) 0.2 10^3/uL (0.0-0.7); HCT - HEMATOCRIT 30.2 % (42.0-52.0); HGB - HEMOGLOBIN 9.8 g/dL (14.0-18.0); LYMPHOCYTES # (AUTO) 1.1 10^3/uL (1.5-3.5); LYMPHOCYTES % (AUTO) 13.7 %; MEAN CORPUSCULAR HEMOGLOBIN 30.5 pg (27.0-31.0); MEAN CORPUSCULAR HGB CONC 32.5 g/dL (32.0-36.0); MEAN CORPUSCULAR VOLUME 94.1 fL (80.0-94.0); MEAN PLATELET VOLUME 9.3 fL (7.4-11.4); MONOCYTES % (AUTO) 11.9 %; NEUTROPHILS % (AUTO) 71.8 %; PLT - PLATELET COUNT 285 10^3/uL (130-450); RED BLOOD COUNT 3.21 10^6/uL (4.70-6.10); RED CELL DISTRIBUTION WIDTH 13.8 % (12.0-15.0); WHITE BLOOD COUNT 8.3 x10^3/uL (4.8-10.8)
[2023-04-21 20:46] LABS: ESTIMATED AVERAGE GLUCOSE 169 mg/dL (70-100); HEMOGLOBIN A1c% 7.5 % (4.27-6.07)
[2023-04-21 20:51] LABS: ALBUMIN 3.8 g/dL (3.2-5.5); ALBUMIN/GLOBULIN RATIO 1.5 (1.0-2.2); BILIRUBIN,TOTAL 1.2 mg/dL (0.2-1.0); CALCIUM 8.9 mg/dL (8.5-10.3); POTASSIUM 4.2 mmol/L (3.5-4.5); TOTAL PROTEIN 6.4 g/dL (6.4-8.9)
== END 2023-04-21 23:59 | disposition home or self-care (01) ==
LOC: LAB.R 08:00
PROVIDERS: ATTEND Registered Nurse
DX: I10 Essential (primary) hypertension (principal); D64.9 Anemia, unspecified; E11.65 Type 2 diabetes mellitus with hyperglycemia
CPT/HCPCS: 80053; 83036; 85025

== ENCOUNTER 2023-05-23 08:00 | Outpatient (CLI) | payer MEDICARE ==
--- NOTE | 2023-05-23 15:23 | XRAY Report ---
PROCEDURE: Hip 2 View LT INDICATIONS: LEFT HIP FRACTURE TECHNIQUE: 2 views of the hip were acquired. COMPARISON: X-ray hip 04/11/2023 FINDINGS: Bones: Left femoral elder fixation. Hardware is intact without evidence of hardware fracture or peripr osthetic lucency to suggest loosening. Fracture lucencies demonstrate good anatomic alignment. No jesica picious bony lesions. Soft tissues: No suspicious soft tissue calcifications or masses. IMPRESSION: Left femoral fixation with good anatomic alignment. Reviewed by: Griselda Clay MD on 05/23/2023 3:22 PM PST Approved by: Griselda Clay MD on 05/23/2023 3:22 PM PST Station ID: [id number]
== END 2023-05-23 23:59 | disposition home or self-care (01) ==
LOC: DI.WOS 08:00
PROVIDERS: ATTEND Orthopaedic Surgery
DX: S72.142D Displaced intertrochanteric fracture of left femur, subsequent encounter for closed fracture with routine healing (principal)

== ENCOUNTER 2023-07-04 08:00 | Outpatient (CLI) | payer MEDICARE ==
--- NOTE | 2023-07-04 14:50 | XRAY Report ---
PROCEDURE: Hip 2 View LT INDICATIONS: LEFT HIP ORIF TECHNIQUE: 2 views of the hip were acquired. COMPARISON: Left hip radiographs 05/23/2023 and 04/11/2023 FINDINGS: Bones: Posterior changes again seen from fracture fixation at the left proximal femur. Hardware comp onents are intact and unchanged alignment. Severe axial joint space narrowing is noted bilaterally, s lightly worse on the left. No fractures or dislocations. No suspicious bony lesions. The visualized pelvic ring appears intact. Degenerative changes are seen in the included spine. Soft tissues: No suspicious soft tissue calcifications. IMPRESSION: 1.Postsurgical changes from left proximal fracture fixation with unchanged alignment. 2.Bilateral hip osteoarthrosis. Reviewed by: Tyler Sanderson MD on 07/04/2023 2:49 PM PST Approved by: Tyler Sanderson MD on 07/04/2023 2:49 PM PST Station ID: [id number]
== END 2023-07-04 23:59 | disposition home or self-care (01) ==
LOC: DI.WOS 08:00
PROVIDERS: ATTEND Orthopaedic Surgery
DX: S72.002D Fracture of unspecified part of neck of left femur, subsequent encounter for closed fracture with routine healing (principal)